=== PATIENT | female | born 2000 | race Caucasian/White ===

== ENCOUNTER → 2019-05-24 10:21 | Outpatient (BNVA) | payer MEDICAID, SELFPAY | PROVIDERS: Family Provider Nurse Practitioner; PCP Nurse Practitioner; Visit Provider Nurse Practitioner | DX: E55.9 Vitamin D deficiency, unspecified (principal); J45.909 Unspecified asthma, uncomplicated; K59.00 Constipation, unspecified; R32 Unspecified urinary incontinence; G47.00 Insomnia, unspecified | CPT/HCPCS: 82306; 85025 ==

== ENCOUNTER → 2019-09-25 15:31 | Outpatient (BNVA) | payer MEDICAID, SELFPAY | PROVIDERS: Family Provider Nurse Practitioner; PCP Nurse Practitioner; Visit Provider Specialist | DX: G80.0 Spastic quadriplegic cerebral palsy (principal); G40.309 Generalized idiopathic epilepsy and epileptic syndromes, not intractable, without status epilepticus | CPT/HCPCS: 99213 ==

== ENCOUNTER → 2019-12-27 08:00 | Outpatient (BNVA) | payer MEDICAID, SELFPAY | PROVIDERS: Family Provider Nurse Practitioner; PCP Nurse Practitioner; Visit Provider Nurse Practitioner | DX: Z79.899 Other long term (current) drug therapy (principal); G80.0 Spastic quadriplegic cerebral palsy | CPT/HCPCS: 80053; 84443; 85025 ==

== ENCOUNTER → 2020-05-24 11:57 | Outpatient (BNVA) | payer MEDICAID, SELFPAY | PROVIDERS: Family Provider Nurse Practitioner; PCP Nurse Practitioner; Visit Provider Nurse Practitioner | DX: K59.01 Slow transit constipation (principal); G40.309 Generalized idiopathic epilepsy and epileptic syndromes, not intractable, without status epilepticus | CPT/HCPCS: 80053; 84443; 85025 ==

== ENCOUNTER 2020-09-11 17:10 | Observation (INO) | payer MEDICAID, SELFPAY ==
[2020-09-11 17:13] VITALS: BMI 30.4
[2020-09-11 17:32] VITALS: BP 113/70; PULSE 104; TEMP 36.8; O2SAT 99
[2020-09-11 17:48] VITALS: BP 139/75; PULSE 129; RESP 20; O2SAT 96
--- NOTE | 2020-09-11 18:36 | PC.NURSE ---
Pt clean, placed gown, repositioned from comfort. IV in left upper arm with NS infusing
[2020-09-11] MEDS: sodium chloride 0.9% 1,000 ML 999 ML IV (18:37)
[2020-09-11 18:39] LABS: Basophils % 0.4 %; Eosinophils # 0.2 10^3/uL (0.0-0.8); Hematocrit 45.8 % (37.0-47.0); Lymphocytes # 2.6 10^3/uL (0.8-4.8); Lymphocytes % 32.5 %; Mean Corpuscular HGB Conc 32.8 g/dL (30.0-36.0); Mean Corpuscular Volume 88.6 fL (81-99); Mean Platelet Volume 9.1 fL (7.4-10.4); Monocytes # 0.7 10^3/uL (0.2-0.9); Monocytes % 9.1 %; Neutrophils # 4.45 10^3/uL (1.8-7.7); Neutrophils % 55.9 %; Nucleated Red Blood Cells % 0 %; Platelet Count 377 10^3/cmm (130-400); Red Blood Count 5.17 10^6/uL (4.1-5.3); Red Cell Distribution Width 12.2 % (12.1-15.1)
[2020-09-11 18:55] LABS: Urine Appearance Cloudy (CLEAR); Urine Color Yellow (Yellow)
[2020-09-11 18:56] LABS: Add Urine Microscopic? YES; Bilirubin Urine Neg (Negative); Blood Urine Neg (Negative); Glucose Urine UA Norm (Normal); Ketones Urine Negative (Negative); Leukocyte Esterase Urine Trace (Negative); Nitrate Urine Negative (Negative); Protein Urine Neg (Negative); Specific Gravity, Urine 1.015 (1.005-1.030); Urobilinogen Urine Norm (Negative); pH Urine 7 (5-7)
[2020-09-11 18:58] LABS: Alanine Aminotransferase 20 U/L (0-33); Albumin Level 4.4 g/dL (3.5-5.2); Alkaline Phosphatase 82 IU/L (35-105); Aspartate Amino Transferase 19 U/L (0-32); Blood Urea Nitrogen 9 mg/dL (6-20); Carbon Dioxide 22 mmol/L (22-29); Chloride 106 mmol/L (98-107); Globulin 2.8 g/dL (1.3-4.6); Glomerular Filtration Rate 280.8 mL/min (90-130); Glucose 86 mg/dL (65-115); Osmolality Calculated 288 mOsm/kg (285-295); Sodium 140 mmol/L (136-145); Total Bilirubin 0.2 mg/dL (0.15-1.2); Total Protein 7.2 g/dL (6.6-8.7)
[2020-09-11 18:59] LABS: Anion Gap 15.8 (5-19); Potassium 3.8 mmol/L (3.5-5.1)
[2020-09-11 19:10] LABS: Add Urine Culture? No; Amorphous Sediment Urine 2+ /hpf; Bacteria Urine 2+ /hpf; RBC Urine 0-4 /hpf (0-2); Squamous Epithelial Cell Urine 15-25 /hpf (0-5)
[2020-09-11 19:23] VITALS: BP 139/75; PULSE 84; RESP 20; O2SAT 97
[2020-09-11] MEDS: levofloxacin-dextrose 5 % 750 MG/150 ML PREMIX 150 MG IV (19:53)
--- NOTE | 2020-09-11 20:20 | PC.NURSE ---
abx stopped after approx 20cc due to reaction at iv site of redness and uticaria. notifkatey
--- NOTE | 2020-09-11 20:30 | PM.HP ---
Providers/Chief Complaint Primary Care Provider: Roldan Guerrero, SREEKANTHC Chief Complaint: WELL BEING CHECK History of Present Illness Estephanie Choi is a 19 year old female who has history of cerebral palsy, spastic contracture of lower extremities, dysphagia status post PEG tube placement, intellectual disability, bedbound, dependent on her mother for her care presented today along her mother. Her mother is admitted in the hospital for management of sepsis. Patient is nonverbal, most of the information has been acquired from ER and nursing report, she was brought in along her mother because there is no one else to take care of her, she was in unkept appearance, she was showered twice in the ER, cellulitis and pressure ulcer noted around PEG tube, UA reveals pyuria however not a good sample, she is not febrile no signs of sepsis or leukocytosis. She developed a rash in the ER when she was given Levaquin, her antibiotics were switched to doxycycline. Review of Systems General: Reports: ROS unobtainable due to medical condition (Intellectual disability, cerebral palsy) Medications/Allergies Home Medications Medication Instructions Recorded Confirmed Last Taken Type inhalat.spacing dev,med. mask #1 each 05/24/19 09/11/20 Unknown Rx medroxyprogesterone 150 mg/mL 150 mg IM ONCE #1 ml 08/22/19 09/11/20 Unknown Rx intramuscular suspension tizanidine 4 mg tablet 8 mg PO TID 30 Days #180 tab 09/26/19 09/11/20 Unknown Rx Tegretol 100 mg/5 mL oral 200 mg PO TID #450 ml NS 11/07/19 09/11/20 Unknown Rx suspension baclofen 10 mg tablet 20 mg PO TID #180 tab 01/17/20 09/11/20 Unknown Rx albuterol sulfate 2.5 mg INHALATION Q6H PRN #75 ml 05/24/20 09/11/20 Unknown Rx albuterol sulfate 90 mcg/actuation 2 puff INHALATION Q4H PRN #6.7 gm 05/24/20 09/11/20 Unknown Rx aerosol inhaler cetirizine 5 mg/5 mL oral solution 5 mg PO DAILY #150 ml 05/24/20 09/11/20 Unknown Rx cholecalciferol (vitamin D3) 50 2,000 unit PO DAILY #30 tab 05/24/20 09/11/20 Unknown Rx mcg (2,000 unit) tablet fluticasone propionate 110 2 puff INHALATION Q12H #12 gm 05/24/20 09/11/20 Unknown Rx mcg/actuation HFA aerosol inhaler lactulose 20 gram/30 mL oral 20 g PO BID PRN #1500 ml 05/24/20 09/11/20 Unknown Rx solution montelukast 10 mg tablet 10 mg PO DAILY #30 tab 05/24/20 09/11/20 Unknown Rx Hospital bed with full bed rails #1 ea 08/01/20 09/11/20 Unknown Rx mupirocin 2 % topical ointment 1 applic TOPICAL BID #22 g 08/15/20 09/11/20 Unknown Rx silver sulfadiazine 1 % topical 1 applic TOPICAL BID #50 g 08/15/20 09/11/20 Unknown Rx cream [id number] 4 drp OTIC (EAR) BEDTIME 09/11/20 09/11/20 Unknown History trazodone 25 - 50 mg PO BEDTIME 09/11/20 09/11/20 Unknown History Allergies Allergy/AdvReac Type Severity Reaction Status Date / Time cephalexin [From Keflex] Allergy Unknown Verified 09/11/20 17:48 ibuprofen Allergy ADR-Gastrointestinal Verified 09/11/20 17:48 Upset lactose Allergy Unknown Verified 09/11/20 17:48 levofloxacin [From Levaquin] Allergy ALGY-Rash Verified 09/11/20 20:23 Penicillins Allergy Unknown Verified 09/11/20 17:48 pineapple Allergy Unknown Verified 09/11/20 17:48 Sulfa (Sulfonamide Allergy ALGY-Rash Verified 09/11/20 17:48 Antibiotics) PFSH Acute PFSH: Medical History (Updated 09/11/20 @ 23:12 by Benny Samaniego MD) Asthma due to environmental allergies Constipation G tube feedings Insomnia Seasonal allergic rhinitis Spastic quadriplegic cerebral palsy Unspecified intellectual disabilities Urine incontinence Vitamin D deficiency Surgical History History of tonsillectomy and adenoidectomy 2001 Hx of myringotomy 2001 Family History Grandfather Diabetes Paternal grandfather Maternal grandfather Heart disease Maternal grandmother Mother Diabetes Hyperlipidemia Thyroid condition Grandmother Diabetes Paternal grandmother Maternal grandmother Hyperlipidemia Maternal grandmother Thyroid condition Maternal grandmother Paternal grandmother Other Cancer Hypertension Social History Smoking and tobacco status: never smoked Second hand smoke exposure: No Smoking risk assessment/counseling performed?: No Alcohol intake: never Desire information about alcohol rehabilitation?: No Counseling given: No Desire information about substance/drug rehabilitation?: No Counseling given: No Adopted: No Caregiver/support person: Yes Lives independently: No Household members: family Housing: House Marital status: Single Number of children: 0 service: No Current occupational status: disabled History of recent travel: No Sexually active: No Current gender identity: Female Female Reproductive History: Spontaneous abortions: No Vitals/I&O/Wt Last Vital Signs Temp 98.3 F 09/11/20 17:32 Pulse 84 09/11/20 19:23 Resp 20 H 09/11/20 19:23 BP 139/75 09/11/20 19:23 Pulse Ox 97 09/11/20 19:23 09/11/20 09/11/20 09/11/20 06:59 14:59 22:59 Intake Total 1020 / 1020 Balance 1020 / 1020 Weight last 48 hrs Weight 90.718 kg Physical Exam Narrative: EXAM NARRATIVE: Young female Nonverbal, she is moving her arms nonpurposefully Able to make eye contact and smile Unkept appearance Cystic skull around occipital area no active bleeding Extremely dry, dirt cooperative skin Hyperemia and rash noted around the IV site on left arm No lower extremity edema Spastic quadriparesis No sacral ulcers No heel ulcers Crusting noted around her nose and ears, no typical signs of impetigo Neuro exam limited Distended abdomen, PEG tube site shows pressure ulcer and severe skin maceration at the insertion site, nonpurulent cellulitis S1, S2 sinus rhythm No apparent respiratory distress no active audible stridor or wheezing Data : 09/11/20 18:26 09/11/20 18:26 A&P Assessment and plan (1) Cellulitis: Status: Acute (2) Urinary tract infection: Status: Acute (3) Acute dehydration: Status: Acute Additional A&P Information Pressure ulcer and cellulitis around PEG tube insertion site Continue doxycycline for now He is allergic to penicillin and cephalosporins Her urine sample is contaminant, she received Levaquin in the ER and developed skin rash which was held, no angioedema, blood pressure stable, she is afebrile No signs of sepsis My concern is regarding contaminated PEG tube which is showing discolored dark green to black sediments, it will put her at risk of yeast/fungal infection, kindly reevaluate in the morning When I was in the room it was running at 250 mm/h which I have decreased to 50 mL/h, her mother has brought protein shakes with her, she has enteral nutrition paperwork from [place] which shows that she will get 12 cans of 3000 kcal/day 250 ml run at 6 AM, 9 AM, 12 PM, 2 PM, 4 PM, 6 PM and 500ml run at 8 PM, 10 PM and 12 AM follow-up with 300 cc water flush Full code Continue PEG tube feeding as I do not see any leakage around PEG tube insertion site Wound care DVT prophylaxis Lovenox Case management consulted for placement Attestations Medical Necessity Statement*: Anticipating discharge in less than 48 hours will need placement, rn field case manager consulted, currently getting antibiotics for cellulitis Time Spent in Patient Care: 30mins Coding Level of Care Code Acute Shipping And Receiving for [facility] Fwd Diagnoses Cellulitis L03.90 Urinary tract infection N39.0 Acute dehydration E86.0
[2020-09-11 21:00] VITALS: BP 142/89; PULSE 86; RESP 18; O2SAT 97
[2020-09-11] MEDS: doxycycline 100 MG in sodium chloride 0.9% (plus) 100 ML IV (21:37)
--- NOTE | 2020-09-11 22:26 | PC.NURSE ---
pt pulled both IVs, is unaware of what she is doing or the consequences. Dr and fire extinguisher charger notified. Request made for safety aide. Abx unable to be completed. approx 20cc adm. 3rd IV secured with coban and IV tape. receving RN notified of sitter request
[2020-09-11 22:33] VITALS: BP 142/89; PULSE 86; RESP 18; O2SAT 97
--- NOTE | 2020-09-11 22:58 | ED_ITS ---
HPI - General Adult General: Chief complaint: General Medical Stated complaint: WELL BEING CHECK Time Seen by Provider: 09/11/20 17:44 History of Present Illness: HPI narrative: The patient is a 19-year-old female with past medical history cerebral palsy with severe mental disability. She came in an ambulance with her mother who was a patient. She is nonverbal. I was asked to see her after she sat for an extended period in the hallway. She gets G-tube feeds and has missed a feeding because she has been here. Exam is benign except tachycardia but it is difficult to tell whether this is acute as she gets excited to see you in tachycardic interacting with her. Review of Systems General: Reports: ROS unobtainable due to medical condition (Cerebral palsy) and ROS unobtainable due to mental status [facility] ED PFSH: Medical History (Updated 09/11/20 @ 23:03 by Keith Cloud MD) Asthma due to environmental allergies Constipation G tube feedings Insomnia Seasonal allergic rhinitis Spastic quadriplegic cerebral palsy Unspecified intellectual disabilities Urine incontinence Vitamin D deficiency Surgical History History of tonsillectomy and adenoidectomy 2002 Hx of myringotomy 2002 Family History Grandfather Diabetes Paternal grandfather Maternal grandfather Heart disease Maternal grandmother Mother Diabetes Hyperlipidemia Thyroid condition Grandmother Diabetes Paternal grandmother Maternal grandmother Hyperlipidemia Maternal grandmother Thyroid condition Maternal grandmother Paternal grandmother Other Cancer Hypertension Social History Smoking and tobacco status: never smoked Second hand smoke exposure: No Smoking risk assessment/counseling performed?: No Alcohol intake: never Desire information about alcohol rehabilitation?: No Counseling given: No Desire information about substance/drug rehabilitation?: No Counseling given: No Adopted: No Caregiver/support person: Yes Lives independently: No Household members: family Housing: House Marital status: Single Number of children: 0 service: No Current occupational status: disabled History of recent travel: No Sexually active: No Current gender identity: Female Female Reproductive History: Spontaneous abortions: No Physical Exam Const: COMMON NORMALS: no acute distress and healthy appearing EXAM LIMITATIONS: behavioral limitations and other limitations (Cerebral palsy) GENERAL APPEARANCE: comfortable HENMT: COMMON NORMALS: normocephalic, external ears normal and Normal external nose present HEAD & SCALP: normal to inspection and normocephalic NOSE: Normal external nose present EXTERNAL EAR: Yes external ears normal MOUTH: Normal oral and palatal mucosa present THROAT: posterior oropharynx normal Eye: COMMON NORMALS: Equal, round and reactive pupils present and EOMs intact bilaterally GENERAL EYE: appearance normal, both eyes and all related structures PUPIL: Yes Equal, round and reactive pupils present Neck/C-Spine: COMMON NORMALS: full ROM, no lymphadenopathy, no meningeal signs and no JVD GENERAL: Yes normal visual inspection Lymph: LYMPHATIC: no lymphadenopathy noted Chest: COMMONS NORMALS: normal inspection of the chest and normal palpation of entire chest wall Resp: COMMON NORMALS: normal respiratory effort, No retractions, No use of accessory muscles, clear to auscultation bilaterally and percussion normal EFFORT & INSPECTION: Yes able to speak in complete sentences AUSCULTATION: clear to auscultation bilaterally PERCUSSION: percussion normal Cardio: COMMON NORMALS: no JVD, regular rate, regular rhythm, S1 normal heart sound present, S2 normal heart sound present and Peripheral pulses 2+ throughout RATE: regular rate RHYTHM: regular rhythm HEART SOUNDS: S1 normal heart sound present and S2 normal heart sound present PERIPHERAL PULSES: Peripheral pulses 2+ throughout GI: COMMON NORMALS: Normal to inspection, nondistended, normoactive bowel sounds present, Soft to palpation, non-tender and no masses INSPECTION: Yes normal to inspection PALPATION: Yes Soft to palpation : COMMON NORMALS: Yes no CVA tenderness BLADDER/KIDNEY EXAM: Yes no CVA tenderness Back/Pelvis: COMMON NORMALS: no CVA tenderness, thoracic and lumbar spine normal to inspection, no thoracic nor lumbar tenderness and thoraco-lumbar ROM normal Extremity: NARRATIVE EXTREMITY EXAM: Chronic contractions from her cerebral palsy. Moves all 4 extremities spontaneously. Neuro: MENINGEAL SIGNS: Yes no meningeal signs OTHER: Appears to be at her baseline level of functioning with her chronic cerebral palsy. Skin: COMMON NORMALS: no rashes or lesions noted GENERAL SKIN EXAM: no rashes or lesions noted Course Vital Signs: Vital signs: Vital Signs Temperature 98.3 F 09/11/20 17:32 Pulse Rate 86 09/11/20 22:33 Respiratory Rate 18 05/05/21 22:33 Blood Pressure 142/89 05/05/21 22:33 Pulse Oximetry 97 09/11/20 22:33 MDM - General Adult MDM Narrative: Medical decision making narrative: The patient came in for a well check and was tachycardic. Her urine did have 5-10 white cells in it and likely a urinary tract infection. She was given IV fluids for possible dehydration as well and admitted to Dr. Samaniego. Lab Data: Labs: Lab Results 09/11/20 09/11/20 09/11/20 Range/Units 18:26 18:26 18:26 WBC 8.0 (4.0-10.0) 10^3/ uL RBC 5.17 (4.1-5.3) 10^6/u L Hgb 15.0 (11.5-15.3) g/dL Hct 45.8 (37.0-47.0) % MCV 88.6 (81-99) fL MCH 29.0 (28.0-34.0) pg MCHC 32.8 (30.0-36.0) g/dL RDW 12.2 (12.1-15.1) % Plt Count 377 (130-400) 10^3/c mm MPV 9.1 (7.4-10.4) fL Neut % (Auto) 55.9 % Lymph % (Auto) 32.5 % Preston % (Auto) 9.1 % Eos % (Auto) 2.0 % Baso % (Auto) 0.4 % Neut # (Auto) 4.45 (1.8-7.7) 10^3/u L Lymph # (Auto) 2.6 (0.8-4.8) 10^3/u L Preston # (Auto) 0.7 (0.2-0.9) 10^3/u L Eos # (Auto) 0.2 (0.0-0.8) 10^3/u L Baso # (Auto) 0.0 (0.0-0.1) 10^3/u L Nucleated RBC % (a uto) 0 % Nucleated RBCs # 0.0 /100WBC Sodium 140 (136-145) mmol/L Potassium 3.8 (3.5-5.1) mmol/L Chloride 106 (98-107) mmol/L Carbon Dioxide 22 (22-29) mmol/L Anion Gap 15.8 (5-19) BUN 9 (6-20) mg/dL Creatinine 0.3 L (0.5-0.9) mg/dL GFR Calculation 280.8 H (90-130) mL/min Glucose 86 (65-115) mg/dL Calculated Osmolal ity 288 (285-295) mOsm/k g Calcium 9.0 (8.5-10.5) mg/dL Total Bilirubin 0.2 (0.15-1.2) mg/dL AST 19 (0-32) U/L ALT 20 (0-33) U/L Alkaline Phosphata se 82 (35-105) IU/L Total Protein 7.2 (6.6-8.7) g/dL Albumin 4.4 (3.5-5.2) g/dL Globulin 2.8 (1.3-4.6) g/dL Urine Color Yellow (Yellow) Urine Appearance Cloudy (CLEAR) Urine pH 7 (5-7) Ur Specific Gravit y 1.015 (1.005-1.030) Urine Protein Neg (Negative) Urine Glucose (UA) Norm (Normal) Urine Ketones Negative (Negative) Urine Blood Neg (Negative) Urine Nitrate Negative (Negative) Urine Bilirubin Neg (Negative) Urine Urobilinogen Norm (Negative) mg/dL Ur Leukocyte Brittnee ase Trace H (Negative) Urine RBC 0-4 H (0-2) /hpf Urine WBC 5-10 H (0-5) /hpf Ur Squamous Epith Cells 15-25 H (0-5) /hpf Amorphous Sediment 2+ /hpf Urine Bacteria 2+ H (NONE) /hpf Discharge Plan Discharge Patient Disposition: Admitted As Inpatient Admit Provider: Benny Samaniego Clinical Impression: Urinary tract infection, Acute dehydration Condition: Stable Coding Level of Care Code ED Supervisor Laboratory for Tobias Ayon
[2020-09-11] MEDS: enoxaparin 40 mg/0.4 mL Syringe SUBCUT (23:31)
[2020-09-12] VITALS (9 sets, daily range): BP systolic 93–119; BP diastolic 58–77; PULSE 64–135; RESP 18–20; TEMP 36.6–37.3; O2SAT 92–100
[2020-09-12] MEDS: silver sulfadiazine cream 1% 50 gm 1 APPLIC TOPICAL ×2 (08:59→17:24)
[2020-09-12] MEDS: tizanidine 4 mg Tablet 8 MG PO ×3 (09:00→21:18)
[2020-09-12] MEDS: baclofen 10 mg Tablet 20 MG PEG-TUBE ×3 (09:00→21:20)
[2020-09-12] MEDS: doxycycline 100 mg Tablet PEG-TUBE ×2 (09:00→17:24)
--- NOTE | 2020-09-12 09:11 | PC.NUTR ---
Tube feeding assessment. Pt currently receiving what appears to be Peptamen as there are multiple containers from home in pt's room, running at 50 ml/hr. This is providing 1200 kcal, 48 g protein, and 1018 ml H2O. Have spoken with Dr. Downing as well as case management and attempting to clarify home tube feeding regimen at this time. Lactose allergy noted, however Peptamen contains lactose. Anticipate recommending TF change to lactose-free formula as well as increase of rate and H2O flushes to better meet estimated needs, however further information needed at this time. See full nutrition assessment for further details.
--- NOTE | 2020-09-12 09:39 | PC.NURSE ---
Night Nurses gave bed bath last night on 09/11/20
--- NOTE | 2020-09-12 12:19 | PC.CHAP ---
Pastoral Care Encounter/Spiritual Assessment Type of Contact [] Declined mitochondrial disorders counselor visit [] Patient/Family/Request visit [] Outpatient visit [] Follow-up visit [] Physician referral [] Code/Alert [] Routine visit [] Staff referral [] Actively dying [] Patient sleeping [] Family support [] [] Out of room [] Palliative care [] [] Receiving care in room [] Pre-surgical visit [x] Trauma [x] Long length of stay [] ICU visit [x] Other: on meds Relational/Emotional Strength [] Patient feels connected with others/family/visitors/staff [] Distress [] Loneliness/isolation [] Abandonment Spirituality of Patient [] Person of Valerie [] Attends [facility] of their Valerie [] Believes in Prayer [] Reads Bible or Denominational materials [] There are Spiritual issues to be addressed Canvass Manager Interventions [] Prayer [] Active listening [] Non-anxious presence [] Spiritual/emotional support [] Crisis/trauma care [] Spiritual counseling [] Bereavement support [] Provided bereavement packet [] Provided Bible/devotional materials [] Provided toy/stuffed animal, coloring book to patient or family member [] Provided Communion [] Anointing/Tracy [] Salvation [] Completed spiritual assessment [] Other: Impact on Illness or Injury [] Angry [] Fearful [] Anxious [] Often cries [] Exhaustion [] Unable to work [] Unable to attend pentecostalism [] Unable to walk/stand [] Unable to read [] Unable to drive [] Unable to eat/drink [] Unable to sleep [] Unable to be with family [] Patient intubated [] Other: Summary on meds Time spent with patient 5 mins
--- NOTE | 2020-09-12 12:43 | DCPLANNER ---
manager commercial real estate worked with patient on 09.11.2020 when patient was in the ER. manager commercial real estate was asked to help find placement for patient due to patient not being able to take care of herself, and patients mother needing to be seen in the ER. manager commercial real estate spoke with Jolie with senior services with the critical [facility]. manager commercial real estate was told by Jolie that patients primary care physician, Simba Guerrero's office, spoke with Melissa at [facility] about patient and was told that they would accept patient. manager commercial real estate called Melissa at [facility], was told that they did not accept patient and at this time did not even have a referral to review on patient. Melissa did state that she told Cesar' s office, that a Level II would have to be completed on patient, and that she would fax the paperwork to the office, for the physician to fill out and return to Melissa and that she would submit it to [facility] for review. manager commercial real estate spoke with Simba, patients primary care physician, she stated that her office had sent the referral to [facility] for review. She also stated that she would fill out the level II paperwork and fax it to Melissa and this embedded case manager. manager commercial real estate did get the paperwork filled out by Simba. manager commercial real estate also spoke with Kasia at [facility], about possible placement at [facility], was asked to fax what paperwork embedded case manager had from Simba to [facility]. manager commercial real estate faxed paperwork to [facility]. manager commercial real estate was told that no placement would take place today for patient. manager commercial real estate will call and check with [facility] on September 12. manager commercial real estate spoke with patients mother and asked if she knew of anyone else that would be able to care for the patient, any other family member, friend, neighbor anyone. The mother did give embedded case manager the phone number Costa, patients brother and the phone number to Yuli, patients sister in law. When embedded case manager spoke with them the brother stated that he would not be able to take patient and care for her due to not having any room in his house. Costa gave embedded case manager the phone number to patients sister, Ronel, spoke with her she stated that she was a truck farmer and she was not even in the state of [place] and would not be able to care of patient. manager commercial real estate then spoke with Erona, the patients aunt who stated that she was disabled herself and she would not be able to care of patient. Patients mother then gave embedded case manager the phone number to a man named Jose, that calls himself patients father. manager commercial real estate called him, he stated that he lives in [place], and that he would care for patient, but was unable to get patient, hospital would have to transport patient to him. manager commercial real estate has relayed all of this information to direct frame sample and pattern supervisor Jolie Collins, who has also been working on this case. 09.12.20 embedded case manager faxed patients information to [facility] for review. Spoke with Cynthia, was told that they would not be able to accept patient at this time. manager commercial real estate spoke with Demi at [facility] and was told that they would not be able to accept patient at this time. manager commercial real estate did fax patients paperwork to [facility] [place] for review. manager commercial real estate has spoken with Zechariah at [facility] and he stated that it is being reviewed at this time. manager commercial real estate also spoke with Harleen Elgin and they are reviewing patients paperwork at this time as well.
--- NOTE | 2020-09-12 13:37 | PM.PN ---
Subjective Subjective: Interval history: Neurologic alert. Ambulatory. Examination patient lying comfortably in bed. Awakens to physical touch. Looks comfortable. Has remained hemodynamically stable and afebrile since last night. Vitals/I&O/Wt Last Vital Signs Temp 98.7 F 09/12/20 11:49 Pulse 114 H 09/12/20 11:49 Resp 18 09/12/20 11:49 BP 113/61 09/12/20 11:49 Pulse Ox 96 09/12/20 11:49 09/11/20 09/12/20 09/12/20 22:59 06:59 14:59 Intake Total 1020 / 1020 100 / 1120 479 / 479 Balance 1020 / 1020 100 / 1120 479 / 479 Weight last 48 hrs Weight 90.718 kg Physical Exam Narrative: EXAM NARRATIVE: Young female Nonverbal, she is moving her arms nonpurposefully Able to make eye contact and smile Cystic skull around occipital area no active bleeding Hyperemia and rash noted around the IV site on left arm No lower extremity edema Spastic quadriparesis No sacral ulcers No heel ulcers Crusting noted around her nose and ears, no typical signs of impetigo Neuro exam limited Distended abdomen, PEG tube site shows mild skin maceration at the insertion site, S1, S2 sinus rhythm No apparent respiratory distress no active audible stridor or wheezing Data : 09/11/20 18:26 09/11/20 18:26 A&P Assessment and plan (1) Cellulitis: Status: Acute (2) Acute dehydration: Status: Acute (3) G tube feedings: Status: Chronic (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 Continue to address around the PEG tube site insertion with Silvadene. Continue doxycycline for now to finish a 5-day course. PEG tube insertion: Continue with tube feeds at 50 cc/h. And consult dietitian for further recommendation. Her mother has brought protein shakes with her, she has enteral nutrition paperwork from [place] which shows that she will get 12 cans of 3000 kcal/day 250 ml run at 6 AM, 9 AM, 12 PM, 2 PM, 4 PM, 6 PM and 500ml run at 8 PM, 10 PM and 12 AM follow-up with 300 cc water flush Social discord: Mother is removed to the hospital for cellulitis. She is the only patient's caregiver. He started has been consulted for safe discharge planning and placement for patient. Continue other chronic medications including carbamazepine, tizanidine, trazodone, baclofen. Check folate level, admission level, phosphorus level, procalcitonin, TIBC, vitamin B12 level, vitamin D level, ferritin level, TSH. Full code Continue PEG tube feeding as I do not see any leakage around PEG tube insertion site Wound care DVT prophylaxis Lovenox Case management consulted for placement Attestations Medical Necessity Statement*: Patient requires further hospitalization possible discharge planning in view of social discord as mother who is the primary caregiver of the patient is admitted to the hospital and patient has spastic quadriplegic cerebral palsy. Time Spent in Patient Care: Greater than 35 minutes (>than 50% of time spent in counselling and/or direct pt care on unit). 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
[2020-09-12] MEDS: famotidine 20 mg/2 mL INJ IVP (15:42)
[2020-09-12 17:32] LABS: Procalcitonin 0.05 ng/mL (0-0.5); Vitamin B12 858 pg/mL (232-1245)
[2020-09-12 17:35] LABS: Folate Level 18.3 ng/mL (4.8-37.3)
[2020-09-12 17:43] LABS: Ferritin 45 ng/mL (15-150); Iron 54 ug/dL (37-145); Percent Saturation 17.8 % (20-50); Total Iron Binding Capacity 303 mcg/dl; Unsaturated Iron Binding 249 ug/dL (112-347)
[2020-09-12 17:48] LABS: SARS Covid-2 Antigen Negative (Negative)
[2020-09-12 18:17] LABS: 25 Hydroxy Vitamin D 25 ng/mL (30-100); Magnesium 1.9 mg/dL (1.7-2.3); Phosphorus 2.7 mg/dL (2.5-4.5); Thyroid Stimulating Hormone 2.34 uIU/mL (0.27-4.20)
[2020-09-12] MEDS: trazodone 50 mg Tablet 25 MG PO (21:19)
[2020-09-12] MEDS: metoprolol tartrate 25 mg Tablet 12.5 MG PO (21:19)
[2020-09-12] MEDS: enoxaparin 40 mg/0.4 mL Syringe SUBCUT (23:27)
[2020-09-13] VITALS (8 sets, daily range): BP systolic 91–106; BP diastolic 55–72; PULSE 69–101; RESP 17–19; TEMP 36.4–37.5; O2SAT 91–98
[2020-09-13] MEDS: famotidine 20 mg/2 mL INJ IVP ×2 (02:17→15:08)
[2020-09-13 06:36] LABS: Basophils % 0.2 %; Eosinophils # 0.2 10^3/uL (0.0-0.8); Eosinophils % 3.5 %; Hematocrit 39.2 % (37.0-47.0); Hemoglobin 12.7 g/dL (11.5-15.3); Lymphocytes # 2.1 10^3/uL (0.8-4.8); Lymphocytes % 48.2 %; Mean Corpuscular HGB Conc 32.4 g/dL (30.0-36.0); Mean Corpuscular Hemoglobin 29.2 pg (28.0-34.0); Mean Corpuscular Volume 90.1 fL (81-99); Mean Platelet Volume 8.9 fL (7.4-10.4); Monocytes # 0.5 10^3/uL (0.2-0.9); Monocytes % 12.4 %; Neutrophils # 1.55 10^3/uL (1.8-7.7); Neutrophils % 35.7 %; Nucleated Red Blood Cells % 0 %; Platelet Count 294 10^3/cmm (130-400); Red Blood Count 4.35 10^6/uL (4.1-5.3); Red Cell Distribution Width 12.5 % (12.1-15.1); White Blood Count 4.3 10^3/uL (4.0-10.0)
[2020-09-13 06:59] LABS: Alanine Aminotransferase 13 U/L (0-33); Alkaline Phosphatase 72 IU/L (35-105); Anion Gap 11.5 (5-19); Aspartate Amino Transferase 13 U/L (0-32); Blood Urea Nitrogen 11 mg/dL (6-20); Calcium 8.7 mg/dL (8.5-10.5); Carbon Dioxide 23 mmol/L (22-29); Chloride 111 mmol/L (98-107); Globulin 2.5 g/dL (1.3-4.6); Glomerular Filtration Rate 448.4 mL/min (90-130); Glucose 103 mg/dL (65-115); Osmolality Calculated 294 mOsm/kg (285-295); Potassium 3.5 mmol/L (3.5-5.1); Sodium 142 mmol/L (136-145); Total Bilirubin 0.2 mg/dL (0.15-1.2); Total Protein 6.5 g/dL (6.6-8.7)
[2020-09-13] MEDS: baclofen 10 mg Tablet 20 MG PEG-TUBE ×3 (08:30→20:39)
[2020-09-13] MEDS: doxycycline 100 mg Tablet PEG-TUBE ×2 (08:30→18:38)
[2020-09-13] MEDS: tizanidine 4 mg Tablet 8 MG PO ×3 (08:30→20:39)
[2020-09-13] MEDS: metoprolol tartrate 25 mg Tablet 12.5 MG PO ×2 (08:30→20:39)
[2020-09-13] MEDS: montelukast sodium 10 mg Tablet PO (08:30)
--- NOTE | 2020-09-13 09:31 | PM.DCS ---
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 Her mother is admitted in the hospital for management of sepsis. Patient is nonverbal, most of the information has been acquired from ER and nursing report, she was brought in along her mother because there is no one else to take care of her, she was in unkept appearance, she was showered twice in the ER, cellulitis and pressure ulcer noted around PEG tube, UA reveals pyuria however not a good sample, she is not febrile no signs of sepsis or leukocytosis. She developed a rash in the ER when she was given Levaquin, her antibiotics were switched to doxycycline. She did well during hospitalization. PEG tube feeds are continued. As per her mother she is supposed to be on Peptamen protein shake enteral nutrition which is started to her from hospital in [place]. Her mother has brought protein shakes with her, she has enteral nutrition paperwork from [place] which shows that she will get 12 cans of 3000 kcal/day 250 ml run at 6 AM, 9 AM, 12 PM, 2 PM, 4 PM, 6 PM and 500ml run at 8 PM, 10 PM and 12 AM follow-up with 300 cc water flush. Dietitian consult was done. Nutrition and feeding was changed as per the recommendations. Given the social discord as the mother is hospitalized and she is the only caregiver for the patient plan for possible discharge to SNF was sought for safe discharge planning. She is not discharged hemodynamically stable condition. Patient is to take doxycycline for 5 more days Physical Exam Narrative: EXAM NARRATIVE: Young female Nonverbal, she is moving her arms nonpurposefully Able to make eye contact and smile Cystic skull around occipital area no active bleeding Hyperemia and rash noted around the IV site on left arm No lower extremity edema Spastic quadriparesis No sacral ulcers No heel ulcers Crusting noted around her nose and ears, no typical signs of impetigo Neuro exam limited Distended abdomen, PEG tube site shows mild skin maceration at the insertion site, S1, S2 sinus rhythm No apparent respiratory distress no active audible stridor or wheezing Discharge Data Data Completed and Pending: Pending at discharge Category Date Time Status Vitamin D 1,25 Di hydroxy Routine Lab 09/12/20 13:34 Received Labs from last 24 hours 09/13/20 09/13/20 09/12/20 06:20 06:20 17:00 WBC 4.3 RBC 4.35 Hgb 12.7 Hct 39.2 MCV 90.1 MCH 29.2 MCHC 32.4 RDW 12.5 Plt Count 294 MPV 8.9 Neut % (Auto) 35.7 Lymph % (Auto) 48.2 [place] % (Auto) 12.4 Eos % (Auto) 3.5 Baso % (Auto) 0.2 Neut # (Auto) 1.55 L Lymph # (Auto) 2.1 [place] # (Auto) 0.5 Eos # (Auto) 0.2 Baso # (Auto) 0.0 Nucleated RBC % (a uto) 0 Nucleated RBCs # 0.0 Sodium 142 Potassium 3.5 Chloride 111 H Carbon Dioxide 23 Anion Gap 11.5 BUN 11 Creatinine 0.2 L GFR Calculation 448.4 H Glucose 103 Calculated Osmolal ity 294 Calcium 8.7 Phosphorus Magnesium Iron TIBC % Saturation Unsat Iron Binding Ferritin Total Bilirubin 0.2 AST 13 ALT 13 Alkaline Phosphata se 72 Total Protein 6.5 L Albumin 4.0 Globulin 2.5 Vitamin B12 25-OH Vitamin D To zenia 1,25 Dihydroxy Vit D2 1,25 Dihydroxy Vit D3 Folate Procalcitonin TSH SARS-CoV-2 Ag (Rap id) Negative 09/12/20 09/12/20 09/12/20 16:30 16:30 16:30 WBC RBC Hgb Hct MCV MCH MCHC RDW Plt Count MPV Neut % (Auto) Lymph % (Auto) [place] % (Auto) Eos % (Auto) Baso % (Auto) Neut # (Auto) Lymph # (Auto) [place] # (Auto) Eos # (Auto) Baso # (Auto) Nucleated RBC % (a uto) Nucleated RBCs # Sodium Potassium Chloride Carbon Dioxide Anion Gap BUN Creatinine GFR Calculation Glucose Calculated Osmolal ity Calcium Phosphorus 2.7 Magnesium 1.9 Iron 54 TIBC 303 % Saturation 17.8 L Unsat Iron Binding 249 Ferritin 45 Total Bilirubin AST ALT Alkaline Phosphata se Total Protein Albumin Globulin Vitamin B12 858 25-OH Vitamin D To zenia 25 L 1,25 Dihydroxy Vit D2 1,25 Dihydroxy Vit D3 Folate 18.3 Procalcitonin 0.05 TSH 2.34 SARS-CoV-2 Ag (Rap id) 09/11/20 18:26 WBC RBC Hgb Hct MCV MCH MCHC RDW Plt Count MPV Neut % (Auto) Lymph % (Auto) [place] % (Auto) Eos % (Auto) Baso % (Auto) Neut # (Auto) Lymph # (Auto) [place] # (Auto) Eos # (Auto) Baso # (Auto) Nucleated RBC % (a uto) Nucleated RBCs # Sodium Potassium Chloride Carbon Dioxide Anion Gap BUN Creatinine GFR Calculation Glucose Calculated Osmolal ity Calcium Phosphorus Magnesium Iron TIBC % Saturation Unsat Iron Binding Ferritin Total Bilirubin AST ALT Alkaline Phosphata se Total Protein Albumin Globulin Vitamin B12 25-OH Vitamin D To zenia Pending 1,25 Dihydroxy Vit D2 Pending 1,25 Dihydroxy Vit D3 Pending Folate Procalcitonin TSH SARS-CoV-2 Ag (Rap id) Vitals: Last Vital Signs Temp 99.0 F 09/13/20 08:00 Pulse 86 09/13/20 08:00 Resp 17 09/13/20 08:00 BP 91/55 09/13/20 08:00 Pulse Ox 93 09/13/20 08:00 Discharge Plan Discharge Patient Disposition: Xfer [facility] Condition: Stable Prescriptions: New doxycycline monohydrate 100 mg Tablet 100 mg peg-tube BID Qty: 60 RF: 0 metoprolol tartrate 25 mg Tablet 12.5 mg PO BID@0900,2100 Qty: 60 RF: 0 Continued medroxyprogesterone [Depo-Provera] 150 mg/mL suspension 150 mg IM ONCE Qty: 1 RF: 3 (DME) [employer] Shellie-Med Msk Spacer See Rx Instructions .ROUTE .MEDSUPPLY Qty: 1 RF: 0 tizanidine 4 mg tablet 8 mg PO TID 30 Days Qty: 180 RF: 11 albuterol sulfate [Ventolin HFA] 90 mcg/actuation HFA aerosol inhaler 2 puff INHALATION Q4H PRN (Reason: shortness of breath or wheezing) Qty: 6.7 RF: 5 albuterol sulfate 2.5 mg /3 mL (0.083 %) solution for nebulization 2.5 mg INHALATION Q6H PRN (Reason: shortness of breath or wheezing) Qty: 75 RF: 5 cetirizine 5 mg/5 mL solution 5 mg PO DAILY Qty: 150 RF: 5 cholecalciferol (vitamin D3) 50 mcg (2,000 unit) tablet 2,000 unit PO DAILY Qty: 30 RF: 5 Flovent HFA 110 mcg/actuation HFA aerosol inhaler 2 puff INHALATION Q12H Qty: 12 RF: 5 lactulose 20 gram/30 mL solution 20 g PO BID PRN (Reason: constipation) Qty: 1500 RF: 5 montelukast [Singulair] 10 mg tablet 10 mg PO DAILY Qty: 30 RF: 5 silver sulfadiazine [Silvadene] 1 % cream 1 applic topical BID Qty: 50 RF: 0 mupirocin 2 % ointment 1 applic topical BID Qty: 22 RF: 1 (DME) Hospital bed with full bed rails See Rx Instructions .Route .MEDSUPPLY Qty: 1 RF: 0 carbamazepine [Tegretol] 100 mg/5 mL suspension 200 mg PO TID Qty: 450 RF: 11 baclofen 10 mg tablet 20 mg PO TID Qty: 180 RF: 8 trazodone 50 mg tablet 25 - 50 mg PO BEDTIME RF: 0 mukyuaql-qmipjjala-QW 3.5-10,000-1 mg/mL-unit/mL-% drops,suspension 4 drp otic (ear) BEDTIME RF: 0 Discharge Orders: Discharge Order (Routine); Ordered 09/13/20 Ordered By: Tavo Torres Patient Instructions: Metoprolol (By mouth), Doxycycline (By mouth), Dehydration (DC), Cellulitis (DC), Opioid Safety Discharge Attestations Time Spent in Discharge Care*: greater than 30 min Specific Discharge Activities: educating and/or supporting family/caregiver, discussing with employment evaluator/case manager/social workers/dc planners, documenting/other paperwork and evaluating patient/reviewing data Status at Discharge: Cognitive status at discharge: severely impaired cognition, Behavioral status at discharge: cooperative, Functional status at discharge: other assisted ambulation Overall status at discharge: patient is back to baseline Quality Metrics Clinical Quality Measures During this hospital stay, did patient experience: None Coding Level of Care Code Acute Chg FW DC note Diagnoses Cellulitis L03.90 Acute dehydration E86.0 G tube feedings Z93.1 Spastic quadriplegic cerebral palsy G80.0
--- NOTE | 2020-09-13 12:01 | PC.NUTR ---
Nutrition follow-up. Attemped to contact Roldan Guerrero APRN regarding the tube feeding prescription received from [facility]. Unsure of rationale for 3000 kcal provision, which is significantly higher than what this RD estimates using available calculations. Unable to connect with [facility] at this time. Pt continues receiving Peptamen at 50 ml/hr, providing 1200 kcal, 48 g protein, 1018 ml H2O. Due to limited information, cautiously recommend to change current feeding to match [facility] orders, however recommend to monitor labs, weight, and tolerance, and consider decrease if appropriate. Did contact nurse at [facility] re[facility], who states they will be able to follow the schedule as ordered, and will attempt to obtain Peptamen if possible as they do not currently have it. Please see [facility] faxed orders for specific feeding times and details. Total daily feedings would provide 3000 kcal, 120 g protein, and 2544 ml H2O, with additional H2O from flushes. See RD assessments for further details.
[2020-09-13] MEDS: silver sulfadiazine cream 1% 50 gm 1 APPLIC TOPICAL (18:41)
[2020-09-13] MEDS: trazodone 50 mg Tablet 25 MG PO (20:40)
[2020-09-13] MEDS: enoxaparin 40 mg/0.4 mL Syringe SUBCUT (23:30)
[2020-09-14] VITALS: BP 113/60; PULSE 68; RESP 18; TEMP 37.4; O2SAT 97
[2020-09-14] MEDS: famotidine 20 mg/2 mL INJ IVP (00:47)
[2020-09-14 04:00] VITALS: BP 99/65; PULSE 58; RESP 18; TEMP 36.7; O2SAT 100
[2020-09-14 07:37] VITALS: BP 99/65; PULSE 62; RESP 16; TEMP 37.2; O2SAT 98
[2020-09-14] MEDS: doxycycline 100 mg Tablet PEG-TUBE (10:12)
[2020-09-14] MEDS: silver sulfadiazine cream 1% 50 gm 1 APPLIC TOPICAL (10:13)
[2020-09-14] MEDS: tizanidine 4 mg Tablet 8 MG PO (10:13)
[2020-09-14] MEDS: metoprolol tartrate 25 mg Tablet 12.5 MG PO (10:13)
[2020-09-14] MEDS: montelukast sodium 10 mg Tablet PO (10:13)
[2020-09-14] MEDS: baclofen 10 mg Tablet 20 MG PEG-TUBE (10:13)
[2020-09-14 11:52] VITALS: BP 99/61; PULSE 62; RESP 18; TEMP 36.5; O2SAT 93
--- NOTE | 2020-09-14 12:18 | PM.PN ---
Subjective Subjective: Interval history: Patient did not leave yesterday because of transportation issues. No acute events overnight. Has remained stable, comfortable. Tolerating feeds well. Vitals/I&O/Wt Last Vital Signs Temp 97.7 F 09/14/20 11:52 Pulse 62 09/14/20 11:52 Resp 18 09/14/20 11:52 BP 99/61 09/14/20 11:52 Pulse Ox 93 09/14/20 11:52 09/13/20 09/14/20 09/14/20 22:59 06:59 14:59 Intake Total 500 / 810 Balance 500 / 810 Physical Exam Narrative: EXAM NARRATIVE: Young female Nonverbal, she is moving her arms nonpurposefully Able to make eye contact and smile Cystic skull around occipital area no active bleeding Hyperemia and rash noted around the IV site on left arm No lower extremity edema Spastic quadriparesis No sacral ulcers No heel ulcers Crusting noted around her nose and ears, no typical signs of impetigo Neuro exam limited Distended abdomen, PEG tube site shows mild skin maceration at the insertion site, S1, S2 sinus rhythm No apparent respiratory distress no active audible stridor or wheezing Data : 09/13/20 06:20 09/13/20 06:20 A&P Assessment and plan (1) Cellulitis: Status: Acute (2) Acute dehydration: Status: Acute (3) G tube feedings: Status: Chronic (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 Continue to address around the PEG tube site insertion with Silvadene. Continue doxycycline for now to finish a 5-day course. PEG tube insertion: Discussed with dietitian. For her calorie count for 2000 to 2600 kcal is okay a day. For now we will continue her home schedule. Her mother has brought protein shakes with her, she has enteral nutrition paperwork from [place] which shows that she will get 12 cans of 3000 kcal/day 250 ml run at 6 AM, 9 AM, 12 PM, 2 PM, 4 PM, 6 PM and 500ml run at 8 PM, 10 PM and 12 AM follow-up with 300 cc water flush Social discord: Mother is removed to the hospital for cellulitis. She is the only patient's caregiver. He started has been consulted for safe discharge planning and placement for patient. Continue other chronic medications including carbamazepine, tizanidine, trazodone, baclofen. Check folate level, admission level, phosphorus level, procalcitonin, TIBC, vitamin B12 level, vitamin D level, ferritin level, TSH. Full code Continue PEG tube feeding as I do not see any leakage around PEG tube insertion site Wound care DVT prophylaxis Lovenox Case management consulted for placement Attestations Medical Necessity Statement*: Patient required hospitalization as safe transport to SNF could not be arranged yesterday. Time Spent in Patient Care: Greater than 35 minutes (>than 50% of time spent in counselling and/or direct pt care on unit). 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
[2020-09-14 13:30] VITALS: BP 99/61; PULSE 62; RESP 18; TEMP 36.5; O2SAT 93
--- NOTE | 2020-09-18 14:45 | PC.SOCIAL ---
This nurse has corresponded with mother and Tika with [facility] from regional office out of [place] on 09/17/2020 before Mother was transferred to SNF. We have completed the applications and the initial phone interview. We explained in detail to Mother once services is started if she feels they are not needed at a particular time to just place them on hold but do not cancel them. We explained that there are more opportunities for her Daughter once enrolled in this program and she can get assistance in the home for extended periods of time if needed. Tika verified all was received. While patient and mother are at facility in [place] the case will be out of the [place] office and once they return home will be transferred back to Tika's office at [place].
[2020-09-23 02:12] LABS: Vit D 1,25 (Oh)2, Total 60 pg/mL (18-72); Vit D2 1,25 (Oh)2 <8 pg/mL; Vit D3 1,25 (Oh)2 60 pg/mL
== END 2020-09-14 12:00 | disposition skilled nursing facility (03) ==
LOC: ER 17:44 → MEDSURG 23:03
PROVIDERS: Admitting Provider Internal Medicine; Emergency Provider Family Medicine; PCP Nurse Practitioner; Visit Provider Student in an Organized Health Care Education/Training Program
DX: L03.90 Cellulitis, unspecified (principal); N39.0 Urinary tract infection, site not specified; E86.0 Dehydration; Z93.1 Gastrostomy status; G80.0 Spastic quadriplegic cerebral palsy
CPT/HCPCS: 36415; 80053; 81001; 82306; 82607; 82652; 82728; 82746; 83540; 83550; 83735; 84100; 84145; 84443; 85025; 87426; 94664; 96365; 96367; 96372; 96375; 99285; G0378; J1650; J1956; J3490; J7030

== ENCOUNTER → 2020-11-25 11:01 | Outpatient (BNVA) | payer MEDICAID, SELFPAY | PROVIDERS: PCP Nurse Practitioner; Visit Provider Specialist | DX: G40.209 Localization-related (focal) (partial) symptomatic epilepsy and epileptic syndromes with complex partial seizures, not intractable, without status epilepticus (principal); G40.309 Generalized idiopathic epilepsy and epileptic syndromes, not intractable, without status epilepticus; G80.0 Spastic quadriplegic cerebral palsy; F84.0 Autistic disorder | CPT/HCPCS: 99214 ==

== ENCOUNTER → 2020-11-26 11:46 | Outpatient (BNVA) | payer MEDICAID, SELFPAY | PROVIDERS: PCP Nurse Practitioner; Visit Provider Nurse Practitioner | DX: J45.909 Unspecified asthma, uncomplicated (principal); E55.9 Vitamin D deficiency, unspecified; K59.00 Constipation, unspecified; G47.00 Insomnia, unspecified; B35.1 Tinea unguium; G40.309 Generalized idiopathic epilepsy and epileptic syndromes, not intractable, without status epilepticus; G47.09 Other insomnia | CPT/HCPCS: 80053; 80156; 82306; 85007; 85027 ==

== ENCOUNTER 2020-12-28 22:32 | Emergency (ER) | payer MEDICAID, SELFPAY ==
[2020-12-28 22:35] VITALS: BP 116/96; PULSE 108; RESP 20; TEMP 36.8; O2SAT 98; BMI 32.0
[2020-12-28 22:48] VITALS: TEMP 37.9
--- NOTE | 2020-12-28 22:48 | XRR_ITS ---
PROCEDURE INFORMATION: Exam: XR Chest Exam date and time: 12/28/2020 10:48 PM Age: 20 years old Clinical indication: Dyspnea; Additional info: Rule out pna TECHNIQUE: Imaging protocol: XR of the chest. Views: 1 view. COMPARISON: No relevant prior studies available. FINDINGS: Lungs: No CHF/pulmonary edema. Poor inspiration somewhat limits evaluation, especially of the lung bases. Visible lungs appear essentially clear. Pleural spaces: No visible pneumothorax. No definite pleural fluid. Heart/Mediastinum: Heart size is within normal limits. Bones/joints: No significant acute finding. XR/XR chest 1V portable [id number] IMPRESSION: 1. No definite pneumonia or CHF. 2. Other findings discussed above.
--- NOTE | 2020-12-28 22:48 | ECG_ITS ---
[facility] Test Date: 2020-12-28 Pat Name: Estephanie Choi Department: Room: Gender: Female Testboard Operator: : 2000 Requested By: Risa Ross Order Number: [id number] Gordon MD: Kaylen Menon M.D. Measurements Intervals Hatch Rate: 100 P: 50 WI: 163 QRS: -20 QRSD: 85 T: 40 QT: 311 QTc: 402 Interpretive Statements SINUS TACHYCARDIA POSSIBLE ANTERIOR MYOCARDIAL INFARCTION , OF INDETERMINATE AGE [30 ms Q WAVE IN V3/V4, OR R < 0.2 mV IN V4] No previous ECG available for comparison Electronically Signed On 12-30-2020 13:12:57 CDT by Kaylen Menon M.D. [id number]
--- NOTE | 2020-12-28 22:49 | CTR_ITS ---
PROCEDURE INFORMATION: Exam: CT Head Without Contrast Exam date and time: 12/28/2020 10:49 PM Age: 20 years old Clinical indication: Injury or trauma; Fall; Blunt trauma (contusions or hematomas); Without loss of consciousness; Patient HX: Spastic quad cp fell off couch 2 days ago TECHNIQUE: Imaging protocol: Computed tomography of the head without contrast. Radiation optimization: All CT scans at this facility use at least one of these dose optimization techniques: automated exposure control; mA and/or kV adjustment per patient size (includes targeted exams where dose is matched to clinical indication); or iterative reconstruction. COMPARISON: No relevant prior studies available. RADIATION DOSE METRICS: Total DLP (mGy-cm): 683.7 FINDINGS: Brain: No acute intracranial hemorrhage or mass effect. No definite acute infarct by CT. Cerebral ventricles: Ventricle size is normal for age. Paranasal sinuses: Included paranasal sinuses are essentially clear. Mastoid air cells: No significant acute finding. Bones/joints: No definite acute skull fracture. CT/CT head wo con* [id number] IMPRESSION: 1. No acute intracranial hemorrhage or mass effect. 2. Other findings discussed above. Radiation Dose CTDIVOL = (mGy): DLP = 683.7 (mGy-cm)
[2020-12-28] MEDS: sodium chloride 0.9% 1,000 ML 999 ML IV (23:00)
[2020-12-28 23:08] LABS: Add Urine Microscopic? NO; Charge for UA Resulting for Rev
--- NOTE | 2020-12-28 23:09 | ED_ITS ---
HPI - Altered Mental Status General: Chief Complaint: Altered Mental Status Stated Complaint: NOT ACTING RIGHT/FUSSY Time Seen by Provider: 12/28/20 22:51 History of Present Illness: HPI narrative: Patient arrived via ambulance. Mother states that child has not been acting right the last few weeks. Just been more fussy than usual been act like she has had some possible some abdominal pain. No fever. Does have seizures chronically. Possibly bit her tongue had some blood in the mouth. Mother states stool has been smelling little bit more than usual. No blood in the stool no explosive diarrhea. Patient does have a G-tube in place. Onset (ago): week(s) Timing confirmed by: family member Severity: moderate Consistency of symptoms: Constant Associated symptoms: Deny depression Review of Systems Const: Denies: fever(s), chills or body aches Eyes: Denies: change in vision or blurry vision ENMT: Denies: throat pain or nasal congestion Card: Denies: chest pain or dyspnea on exertion Resp: Denies: dyspnea, productive cough or non-productive cough GI: Reports: excessive flatus and other (Smelly stool); Denies: abdominal pain, nausea or vomiting Musc: Denies: extremity pain Skin/Breast: Denies: rash Neuro: Reports: other (Appears more fussy than normal, child does have autism and MR.); Denies: headache(s) Psych: Denies: anxiety or depression [place]/Lymph: Denies: easy bruising [facility] ED PFSH: Medical History (Updated 12/29/20 @ 01:40 by KRISTA Young) Asthma due to environmental allergies Constipation G tube feedings Insomnia Seasonal allergic rhinitis Spastic quadriplegic cerebral palsy Unspecified intellectual disabilities Urine incontinence Vitamin D deficiency Surgical History History of tonsillectomy and adenoidectomy 2002 Hx of myringotomy 2002 Family History Grandfather Diabetes Paternal grandfather Maternal grandfather Heart disease Maternal grandmother Mother Diabetes Hyperlipidemia Thyroid condition Grandmother Diabetes Paternal grandmother Maternal grandmother Hyperlipidemia Maternal grandmother Thyroid condition Maternal grandmother Paternal grandmother Other Cancer Hypertension Social History Second hand smoke exposure: No Smoking risk assessment/counseling performed?: No Alcohol intake: never Desire information about alcohol rehabilitation?: No Counseling given: No Desire information about substance/drug rehabilitation?: No Counseling given: No Adopted: No Caregiver/support person: Yes Lives independently: No Household members: family Housing: House Marital status: Single Number of children: 0 service: No Current occupational status: disabled History of recent travel: No Sexually active: No Current gender identity: Female Physical Exam Const: COMMON NORMALS: no acute distress HENMT: COMMON NORMALS: normocephalic HEAD & SCALP: normal to inspection and normocephalic FACE & SINUS: normal facial exam and other (Skin is dry lips appear dry) MOUTH: other (No blood noted in the mouth.); oral and palatal mucosa not normal Eye: COMMON NORMALS: conjunctivae normal GENERAL EYE: appearance normal, both eyes and all related structures CONJUNCTIVA: Yes conjunctivae normal Neck/C-Spine: COMMON NORMALS: no JVD Chest: COMMONS NORMALS: normal inspection of the chest Resp: COMMON NORMALS: normal respiratory effort and clear to auscultation bilaterally AUSCULTATION: clear to auscultation bilaterally Cardio: COMMON NORMALS: no JVD, regular rate and regular rhythm RATE: regular rate RHYTHM: regular rhythm GI: COMMON NORMALS: Normal to inspection, nondistended, normoactive bowel sounds present Extremity: COMMON NORMALS: normal to inspection Skin: OTHER: Dry Course Vital Signs: Vital signs: Vital Signs Temperature 100.3 F H 12/29/20 02:24 Pulse Rate 77 12/29/20 02:24 Respiratory Rate 18 12/29/20 02:24 Blood Pressure 103/66 12/29/20 02:24 Pulse Oximetry 98 12/29/20 02:24 MDM - Altered Mental Status MDM Narrative: Medical decision making narrative: Labs negative. Patient was comfortable throughout her stay. No usual signs and symptoms were presented. Patient was discharged home treated for sinusitis. As mother said her sinuses been draining a lot and she felt that she probably had a sinus infection which she has had few times before. Lab Data: Labs: Lab Results 12/28/20 12/28/20 12/29/20 Range/Units 22:58 23:46 00:55 WBC 5.6 (4.0-10.0) 10^3/ uL RBC 4.77 (4.1-5.3) 10^6/u L Hgb 13.7 (11.5-15.3) g/dL Hct 41.9 (37.0-47.0) % MCV 87.8 (81-99) fl MCH 28.7 (28.0-34.0) pg MCHC 32.7 (30.0-36.0) g/dL RDW 12.0 L (12.1-15.1) % Plt Count 358 (130-400) 10^3/c mm MPV 9.1 (7.4-10.4) fL Neut % (Auto) 47.4 % Lymph % (Auto) 38.4 % [place] % (Auto) 11.3 % Eos % (Auto) 2.5 % Baso % (Auto) 0.4 % Neut # (Auto) 2.66 (1.8-7.7) 10^3/u L Lymph # (Auto) 2.2 (0.8-4.8) 10^3/u L [place] # (Auto) 0.6 (0.2-0.9) 10^3/u L Eos # (Auto) 0.1 (0.0-0.8) 10^3/u L Baso # (Auto) 0.0 (0.0-0.1) 10^3/u L Nucleated RBC % (a uto) 0 % Nucleated RBCs # 0.0 /100WBC Sodium (136-145) mmol/L Potassium (3.5-5.1) mmol/L Chloride (98-107) mmol/L Carbon Dioxide (22-29) mmol/L Anion Gap (5-19) BUN (6-20) mg/dL Creatinine (0.5-0.9) mg/dL GFR Calculation (90-130) mL/min Glucose (65-115) mg/dL Calculated Osmolal ity (285-295) mOsm/k g Lactate (0.5-2.2) mmol/L Calcium (8.5-10.5) mg/dL Total Bilirubin (0.15-1.2) mg/dL AST (0-32) U/L ALT (0-33) U/L Alkaline Phosphata se (35-105) IU/L Total Protein (6.6-8.7) g/dL Albumin (3.5-5.2) g/dL Globulin (1.3-4.6) g/dL Lipase (13-60) U/L Urine Color Yellow (Yellow) Urine Appearance Clear (CLEAR) Urine pH 8 H (5-7) Ur Specific Gravit y 1.010 (1.005-1.030) Urine Protein Neg (Negative) Urine Glucose (UA) Norm (Normal) Urine Ketones Negative (Negative) Urine Blood Neg (Negative) Urine Nitrate Negative (Negative) Urine Bilirubin Neg (Negative) Prot Sulfosalicyli c Acd Negative (Negative) Urine Urobilinogen Norm (Negative) mg/dL Ur Leukocyte Brittnee ase Negative (Negative) SARS-CoV-2 Ag (Rap id) Negative (Negative) 12/29/20 12/29/20 Range/Units 00:55 00:55 WBC (4.0-10.0) 10^3/ uL RBC (4.1-5.3) 10^6/u L Hgb (11.5-15.3) g/dL Hct (37.0-47.0) % MCV (81-99) fl MCH (28.0-34.0) pg MCHC (30.0-36.0) g/dL RDW (12.1-15.1) % Plt Count (130-400) 10^3/c mm MPV (7.4-10.4) fL Neut % (Auto) % Lymph % (Auto) % [place] % (Auto) % Eos % (Auto) % Baso % (Auto) % Neut # (Auto) (1.8-7.7) 10^3/u L Lymph # (Auto) (0.8-4.8) 10^3/u L [place] # (Auto) (0.2-0.9) 10^3/u L Eos # (Auto) (0.0-0.8) 10^3/u L Baso # (Auto) (0.0-0.1) 10^3/u L Nucleated RBC % (a uto) % Nucleated RBCs # /100WBC Sodium 138 (136-145) mmol/L Potassium 4.1 (3.5-5.1) mmol/L Chloride 105 (98-107) mmol/L Carbon Dioxide 21 L (22-29) mmol/L Anion Gap 16.1 (5-19) BUN 14 (6-20) mg/dL Creatinine 0.2 L (0.5-0.9) mg/dL GFR Calculation 444.2 H (90-130) mL/min Glucose 124 H (65-115) mg/dL Calculated Osmolal ity 288 (285-295) mOsm/k g Lactate 1.0 (0.5-2.2) mmol/L Calcium 8.6 (8.5-10.5) mg/dL Total Bilirubin 0.2 (0.15-1.2) mg/dL AST 19 (0-32) U/L ALT 21 (0-33) U/L Alkaline Phosphata se 133 H (35-105) IU/L Total Protein 6.7 (6.6-8.7) g/dL Albumin 3.9 (3.5-5.2) g/dL Globulin 2.8 (1.3-4.6) g/dL Lipase 40 (13-60) U/L Urine Color (Yellow) Urine Appearance (CLEAR) Urine pH (5-7) Ur Specific Gravit y (1.005-1.030) Urine Protein (Negative) Urine Glucose (UA) (Normal) Urine Ketones (Negative) Urine Blood (Negative) Urine Nitrate (Negative) Urine Bilirubin (Negative) Prot Sulfosalicyli c Acd (Negative) Urine Urobilinogen (Negative) mg/dL Ur Leukocyte Brittnee ase (Negative) SARS-CoV-2 Ag (Rap id) (Negative) Discharge Plan Discharge Patient Disposition: Home Clinical Impression: Acute sinus infection Qualifiers: Sinusitis location: maxillary Recurrence: non-recurrent Qualified Code(s): J01.00 - Acute maxillary sinusitis, unspecified Condition: Stable Prescriptions: New azithromycin 200 mg/5 mL suspension for reconstitution See Rx Instructions .ROUTE .COMPLEX Qty: 30 RF: 0 No Action (DME) OptiChamber Shellie-Med Msk Spacer See Rx Instructions .ROUTE .MEDSUPPLY Qty: 1 RF: 0 silver sulfadiazine [Silvadene] 1 % cream 1 applic topical BID Qty: 50 RF: 0 mupirocin 2 % ointment 1 applic topical BID Qty: 22 RF: 1 tizanidine 4 mg tablet 8 mg PO TID 30 Days Qty: 180 RF: 11 baclofen 10 mg tablet 30 mg PO QID Qty: 360 RF: 8 (DME) G-tube See Rx Instructions .Route .MEDSUPPLY Qty: 1 RF: 0 albuterol sulfate [Ventolin HFA] 90 mcg/actuation HFA aerosol inhaler 2 puff INHALATION Q4H PRN (Reason: shortness of breath or wheezing) Qty: 6.7 RF: 5 cetirizine 5 mg/5 mL solution 5 mg PO DAILY Qty: 150 RF: 5 cholecalciferol (vitamin D3) 125 mcg (5,000 unit) capsule 125 mcg PO DAILY Qty: 30 RF: 5 Flovent HFA 110 mcg/actuation HFA aerosol inhaler 2 puff INHALATION Q12H Qty: 12 RF: 5 lactulose 20 gram/30 mL solution 20 g PO BID PRN (Reason: constipation) Qty: 1500 RF: 5 montelukast [Singulair] 10 mg tablet 10 mg PO DAILY Qty: 30 RF: 5 hydroxyzine HCl 10 mg/5 mL solution 50 mg PO .at bedtime 30 Days Qty: 750 RF: 5 (DME) Hospital bed with full bed rails See Rx Instructions .Route .MEDSUPPLY Qty: 1 RF: 0 albuterol sulfate 2.5 mg /3 mL (0.083 %) solution for nebulization 2.5 mg INHALATION Q6H PRN (Reason: shortness of breath or wheezing) Qty: 75 RF: 5 medroxyprogesterone [Depo-Provera] 150 mg/mL suspension 150 mg IM ONCE Qty: 1 RF: 0 carbamazepine [Tegretol] 100 mg/5 mL suspension See Rx Instructions PO TID Qty: 450 RF: 11 zbbfqipy-ojotozxqm-IR 3.5-10,000-1 mg/mL-unit/mL-% drops,suspension 4 drp otic (ear) BEDTIME RF: 0 metoprolol tartrate 25 mg Tablet 12.5 mg PO BID@0900,2100 Qty: 60 RF: 0 Discharge Orders: Discharge ED (Routine); Ordered 12/29/20 Ordered By: Amari Kraft Referrals: Roldan Guerrero, PRODUCTION CONTROL EXPERT-C [Primary Care Provider] - Discharge Diet: Usual diet Discharge Activity: Increase activity as tolerated Patient Instructions: Sinusitis (ED) Activity Restrictions/Additional Instructions: Follow-up with medical provider as directed. Take medications as prescribed. Return to the ER or your medical provider if condition worsens. Please read and understand discharge instructions. If any questions ask please. Coding Level of Care Code ED Tipple Boss for Tobias Fwd Exam Comprehensive
[2020-12-28 23:31] LABS: Bilirubin Urine Neg (Negative); Blood Urine Neg (Negative); Glucose Urine UA Norm (Normal); Ketones Urine Negative (Negative); Leukocyte Esterase Urine Negative (Negative); Nitrate Urine Negative (Negative); Protein Urine Neg (Negative); Sulfosalicylic Acid Urine Negative (Negative); Urine Appearance Clear (CLEAR); Urine Color Yellow (Yellow); Urobilinogen Urine Norm (Negative); pH Urine 8 (5-7)
[2020-12-28 23:39] VITALS: BP 119/65
[2020-12-29 00:17] VITALS: BP 108/60; PULSE 77; RESP 18; O2SAT 98
[2020-12-29 00:22] LABS: SARS Covid-2 Antigen Negative (Negative)
[2020-12-29 01:03] LABS: Basophils % 0.4 %; Eosinophils # 0.1 10^3/uL (0.0-0.8); Eosinophils % 2.5 %; Hematocrit 41.9 % (37.0-47.0); Hemoglobin 13.7 g/dL (11.5-15.3); Lymphocytes # 2.2 10^3/uL (0.8-4.8); Lymphocytes % 38.4 %; Mean Corpuscular HGB Conc 32.7 g/dL (30.0-36.0); Mean Corpuscular Hemoglobin 28.7 pg (28.0-34.0); Mean Corpuscular Volume 87.8 fl (81-99); Mean Platelet Volume 9.1 fL (7.4-10.4); Monocytes # 0.6 10^3/uL (0.2-0.9); Monocytes % 11.3 %; Neutrophils # 2.66 10^3/uL (1.8-7.7); Neutrophils % 47.4 %; Nucleated Red Blood Cells % 0 %; Platelet Count 358 10^3/cmm (130-400); Red Blood Count 4.77 10^6/uL (4.1-5.3); White Blood Count 5.6 10^3/uL (4.0-10.0)
[2020-12-29 01:23] LABS: Alanine Aminotransferase 21 U/L (0-33); Albumin Level 3.9 g/dL (3.5-5.2); Alkaline Phosphatase 133 IU/L (35-105); Aspartate Amino Transferase 19 U/L (0-32); Blood Urea Nitrogen 14 mg/dL (6-20); Calcium 8.6 mg/dL (8.5-10.5); Carbon Dioxide 21 mmol/L (22-29); Chloride 105 mmol/L (98-107); Globulin 2.8 g/dL (1.3-4.6); Glomerular Filtration Rate 444.2 mL/min (90-130); Glucose 124 mg/dL (65-115); Lipase 40 U/L (13-60); Osmolality Calculated 288 mOsm/kg (285-295); Sodium 138 mmol/L (136-145); Total Bilirubin 0.2 mg/dL (0.15-1.2); Total Protein 6.7 g/dL (6.6-8.7)
[2020-12-29 01:31] LABS: Anion Gap 16.1 (5-19); Potassium 4.1 mmol/L (3.5-5.1)
[2020-12-29 02:24] VITALS: BP 103/66; PULSE 77; RESP 18; TEMP 37.9; O2SAT 98
== END 2020-12-29 02:06 | disposition home or self-care (01) ==
PROVIDERS: Emergency Medicine; Emergency Provider Nurse Practitioner Family; PCP Nurse Practitioner
DX: J01.00 Acute maxillary sinusitis, unspecified (principal); J45.909 Unspecified asthma, uncomplicated; G80.0 Spastic quadriplegic cerebral palsy; F84.0 Autistic disorder; F79 Unspecified intellectual disabilities; Z93.1 Gastrostomy status
CPT/HCPCS: 36415; 70450; 71045; 80053; 81003; 83605; 83690; 85025; 87040; 87426; 93005; 96360; 99283; J7030; Q0144

== ENCOUNTER 2021-02-27 13:55 | Emergency (ER) | payer MEDICAID, SELFPAY ==
[2021-02-27] VITALS (8 sets, daily range): BP systolic 104–126; BP diastolic 61–80; PULSE 93–120; RESP 18–26; TEMP 36.2; O2SAT 95–99; BMI 31.5
--- NOTE | 2021-02-27 14:05 | ED_ITS ---
HPI - General Adult General: Chief complaint: Extremity Injury, Lower Stated complaint: L LEG PAIN Time Seen by Provider: 02/27/21 14:03 History of Present Illness: HPI narrative: Patient is a 20-year-old female with history of cerebral palsy complicated by spastic movements presents the emergency room with acute swelling over the left thigh since yesterday night. Patient baseline is usually bedbound but has been able to get out of bed. Since yesterday night, mom and dad noticed that patient has had swelling over the left thigh. Mom denies any fever or chills, induration, redness over the thigh. Mom denies any recent trauma or fall. Onset:1 day ago Duration:1 day Location:home Severity: moderate Review of Systems Narrative: Constitutional: No fever, no chills. HEENT: No vision changes CV: No chest pain, no palpitations PULM: no cough, no dyspnea. GI: No abdominal pain, no N/V/D. : No dysuria MSKEL: +L thigh swelling SKIN: No new rashes, no lesions. NEURO: No headache, no focal weakness. HEME: No visible bruises PSYCH: Normal mood PFSH ED PFSH: Medical History Asthma due to environmental allergies Constipation G tube feedings Insomnia Seasonal allergic rhinitis Spastic quadriplegic cerebral palsy Unspecified intellectual disabilities Urine incontinence Vitamin D deficiency Surgical History History of tonsillectomy and adenoidectomy 2002 Hx of myringotomy 2002 Family History Grandfather Diabetes Paternal grandfather Maternal grandfather Heart disease Maternal grandmother Mother Diabetes Hyperlipidemia Thyroid condition Grandmother Diabetes Paternal grandmother Maternal grandmother Hyperlipidemia Maternal grandmother Thyroid condition Maternal grandmother Paternal grandmother Other Cancer Hypertension Social History Second hand smoke exposure: No Smoking risk assessment/counseling performed?: No Alcohol intake: never Desire information about alcohol rehabilitation?: No Counseling given: No Desire information about substance/drug rehabilitation?: No Counseling given: No Adopted: No Caregiver/support person: Yes Lives independently: No Household members: family Housing: House Marital status: Single Number of children: 0 service: No Current occupational status: disabled History of recent travel: No Sexually active: No Current gender identity: Female Female Reproductive History: Date of last menstrual period: 08/01/20 Physical Exam Narrative: EXAM NARRATIVE: Head: Atraumatic Eyes: PERRL, conjunctiva without injection ENT: Mucous membrane moist NECK: Supple, ROM intact LUNGS: LCTAB, no crackles/rhonchi CV: Sinus tacycardia ABDOMEN: Soft, nontender in all quadrants EXTREMITY: +L thigh swelling, compartment nontense, no visible overlying edema/induration/fluctuance no crepitus, 2+ DP/PT pulses on the left side SKIN: No rash or erythema NEURO: Awake and alert, no focal motor deficits PSYCH: Normal mood and affect Course Vital Signs: Vital signs: Vital Signs Temperature 97.2 F L 02/27/21 14:03 Pulse Rate 102 H 02/27/21 22:14 Respiratory Rate 22 H 02/27/21 22:14 Blood Pressure 104/61 02/27/21 22:14 Pulse Oximetry 95 02/27/21 22:14 MDM - General Adult MDM Narrative: Medical decision making narrative: 20-year-old female presents emergency room for concerns of left lower extremity swelling in the absence of trauma. On exam, patient has and is noted to have left leg swelling. Patient is also noted to be tachycardic to the 110s to 120. Today including CBC, BMP, ultrasound of the lower extremity, x-rays Intervention: IVF, pain medicine On reassessment, patient was found to have commuinted femoral shaft fracture L. Family again does not recall how this incident happened. Because Patient has special needs and found with significant trauma with delayed presentation, case was urgently discussed with JOHANA Castano who will follow the case. Given morphine IV x 2 dose for pain in the ED. Case discussed with Dr. Staples our orthopedic provider who informs me that given the size of the femur as well as the new nature of the fracture, it is better the patient go to a pediatric orthopedic center or smaller internal rods are available. Case was discussed with Dr. hay at [facility] with plans for transfer. Disposition: Transfer to outside hospital Lab Data: Labs: Lab Results 10/21/21 10/21/21 10/21/21 15:32 15:32 15:32 WBC 7.3 10^3/uL 10^3/ uL (4.0-10.0) RBC 4.06 10^6/uL L 10 ^6/uL (4.1-5.3) Hgb 11.9 g/dL g/dL (11.5-15.3) Hct 36.6 % L % (37.0-47.0) MCV 90.1 fl fl (81-99) MCH 29.3 pg pg (28.0-34.0) MCHC 32.5 g/dL g/dL (30.0-36.0) RDW 12.5 % % (12.1-15.1) Plt Count 305 10^3/cmm 10^3 /cmm (130-400) MPV 9.5 fL fL (7.4-10.4) Neut % (Auto) 62.3 % % Lymph % (Auto) 24.0 % % [place] % (Auto) 11.8 % % Eos % (Auto) 1.2 % % Baso % (Auto) 0.3 % % Neut # (Auto) 4.54 10^3/uL 10^3 /uL (1.8-7.7) Lymph # (Auto) 1.8 10^3/uL 10^3/ uL (0.8-4.8) [place] # (Auto) 0.9 10^3/uL 10^3/ uL (0.2-0.9) Eos # (Auto) 0.1 10^3/uL 10^3/ uL (0.0-0.8) Baso # (Auto) 0.0 10^3/uL 10^3/ uL (0.0-0.1) Nucleated RBC % (a uto) 0 % % Nucleated RBCs # 0.0 /100WBC /100W BC PT 13.70 SECONDS SEC ONDS (12.1-14.9) INR 1.02 (0.8-1.2) APTT 27.1 SECONDS SECO NDS (23.9-36.7) Sodium 133 mmol/L L mmol /L (136-145) Potassium 4.2 mmol/L mmol/L (3.5-5.1) Chloride 101 mmol/L mmol/L (98-107) Carbon Dioxide 22 mmol/L mmol/L (22-29) Anion Gap 14.2 (5-19) BUN 11 mg/dL mg/dL (6-20) Creatinine 0.2 mg/dL L mg/dL (0.5-0.9) GFR Calculation 444.2 mL/min H mL /min (90-130) Glucose 130 mg/dL H mg/dL (65-115) Calculated Osmolal ity 277 mOsm/kg L mOs m/kg (285-295) Calcium 8.6 mg/dL mg/dL (8.5-10.5) Total Bilirubin 0.2 mg/dL mg/dL (0.15-1.2) AST 43 U/L H U/L (0-32) ALT 84 U/L H U/L (0-33) Alkaline Phosphata se 97 IU/L IU/L (35-105) Total Protein 5.9 g/dL L g/dL (6.6-8.7) Albumin 3.7 g/dL g/dL (3.5-5.2) Globulin 2.2 g/dL g/dL (1.3-4.6) Lipase 30 U/L U/L (13-60) Blood Type Rho(D) Type Antibody Screen 02/27/21 17:17 WBC RBC Hgb Hct MCV MCH MCHC RDW Plt Count MPV Neut % (Auto) Lymph % (Auto) [place] % (Auto) Eos % (Auto) Baso % (Auto) Neut # (Auto) Lymph # (Auto) [place] # (Auto) Eos # (Auto) Baso # (Auto) Nucleated RBC % (a uto) Nucleated RBCs # PT INR APTT Sodium Potassium Chloride Carbon Dioxide Anion Gap BUN Creatinine GFR Calculation Glucose Calculated Osmolal ity Calcium Total Bilirubin AST ALT Alkaline Phosphata se Total Protein Albumin Globulin Lipase Blood Type A Negative Rho(D) Type Negative Antibody Screen Negative Imaging Data^: Other Imaging: Radiologist's impression: [address] [id number] ReportSigned Patient: Estephanie Choi #: [id number]: 2000Acct#:[id number] Age/Sex: 20 / FADM Date: 02/27/21Loc: ERRoom/Bed:Attending Dr: Ordering Provider/Ordering MD: Risa Ross MD Date of Service: 02/27/21 Procedure(s): XR femur LT min 2V* 78040 Accession Number(s): [id number] Report Number: [id number] WS: [id number] Left femur and thigh, AP and lateral views, 02/27/2021 Clinical Data: rule out fx Comparison: None. Findings: There is a comminuted mid shaft fracture of the left femur. There is soft tissue swelling about the fracture site. The left hip and left knee appear to be intact. XR/XR femur LT min 2V* [id number] Impression: Comminuted midshaft fracture of the left femur. Dictated By:Priya Woodruff MDSigned By:Priya Woodruff MDSigned Date/Time:02/27/211604DD/ [address] [id number] Scan ReportSigned Patient: Estephanie Choi #: [id number]: 2000Acct#:[id number]/Sex: 20 / FADM Date: 02/27/21Loc: ERRoom/Bed:Attending Dr: Ordering Provider/Ordering MD: Risa Ross MD Date of Service: 02/27/21 Procedure(s): CT head wo con* [id number] Accession Number(s): [id number] Report Number: [id number] PROCEDURE INFORMATION: Exam: CT Head Without Contrast Exam date and time: 02/27/2021 4:49 PM Age: 20 years old Clinical indication: Injury or trauma; Other: Femur FX. Rule out possible injury; Blunt trauma (contusions or hematomas); Additional info: Rule out injuries TECHNIQUE: Imaging protocol: Computed tomography of the head without contrast. Radiation optimization: All CT scans at this facility use at least one of these dose optimization techniques: automated exposure control; mA and/or kV adjustment per patient size (includes targeted exams where dose is matched to clinical indication); or iterative reconstruction. COMPARISON: CT head wo con* [id number] 12/28/2020 11:42 PM RADIATION DOSE METRICS: Total DLP (mGy-cm): 912.17 FINDINGS: Brain: Normal. No hemorrhage. Unremarkable white matter. No mass effect. Cerebral ventricles: No ventriculomegaly. Paranasal sinuses: Visualized sinuses are unremarkable. No fluid levels. Mastoid air cells: Visualized mastoid air cells are well aerated. Bones/joints: Unremarkable. No acute fracture. Soft tissues: Unremarkable. CT/CT head wo con* [id number] IMPRESSION: No acute intracranial abnormality. Radiation Dose CTDIVOL = (mGy): DLP = 912.17 (mGy-cm) Dictated By:Criss Mcneill By:Criss Mcneill Date/Time:02/27/21 1742DD/ [address] [place], [place] [id number] ReportSigned Patient: Estephanie Choi #: [id number]: /Sex: 20 / FADM Date: 02/27/21Loc: ERRoom/Bed:Attending Dr: Ordering Provider/Ordering MD: Risa Ross MD Date of Service: 02/27/21 Procedure(s): [place] [id number] Accession Number(s): [id number] Report Number: [id number] Estephanie Choi Age: 20 Gender: F : 2000 Exam Date: 02/27/2021 14:29 Ordering Phys: Risa Ross MD Technologist: LORAINE Exam Location: [facility] [place] Indication: RULE OUT DVT PROCEDURES: Venous duplex imaging was performed in bilateral lower extremities. The following venous structures were evaluated: common femoral vein, profunda vein, proximal portion of the greater saphenous vein, superficial femoral vein, and the popliteal vein. In addition, the posterior tibial and peroneal trunk were evaluated. Serial compression, augmentation maneuvers, and spectral Doppler flow evaluation were performed. FINDINGS: Normal 2-D Doppler and augmentation and compressibility throughout the lower extremity venous structures. Additional imaging through the proximal calf veins also reveals no thrombus. Limited evaluation of the greater saphenous vein is patent with no thrombus.. CONCLUSIONS No evidence of left lower extremity DVT. No evidence of right lower extremity DVT. Luciano Mendes MD (Electronically Signed) Final Date: 27 February 2021 17:19 S Discharge Plan Discharge Patient Disposition: Transfer to ED Clinical Impression: Leg swelling, Femur fracture Condition: Stable Prescriptions: No Action (DME) OptiChamber Shellie-Med Msk Spacer See Rx Instructions .ROUTE .MEDSUPPLY Qty: 1 RF: 0 tizanidine 4 mg tablet 8 mg PO TID 30 Days Qty: 180 RF: 11 baclofen 10 mg tablet 30 mg PO QID Qty: 360 RF: 8 (DME) G-tube See Rx Instructions .Route .MEDSUPPLY Qty: 1 RF: 0 albuterol sulfate [Ventolin HFA] 90 mcg/actuation HFA aerosol inhaler 2 puff INHALATION Q4H PRN (Reason: shortness of breath or wheezing) Qty: 6.7 RF: 5 Flovent HFA 110 mcg/actuation HFA aerosol inhaler 2 puff INHALATION Q12H Qty: 12 RF: 5 lactulose 20 gram/30 mL solution 20 g PO BID PRN (Reason: constipation) Qty: 1500 RF: 5 (DME) Hospital bed with full bed rails See Rx Instructions .Route .MEDSUPPLY Qty: 1 RF: 0 albuterol sulfate 2.5 mg /3 mL (0.083 %) solution for nebulization 2.5 mg INHALATION Q6H PRN (Reason: shortness of breath or wheezing) Qty: 75 RF: 5 zafirlukast [Accolate] 10 mg tablet 20 mg PO BID Qty: 60 RF: 4 hydroxyzine HCl 10 mg/5 mL solution 50 mg PO BEDTIME RF: 0 Tegretol 100 mg/5 mL suspension See Rx Instructions PO TID RF: 0 Depo-Provera 150 mg/mL suspension 150 mg IM Q90D RF: 0 cholecalciferol (vitamin D3) 125 mcg (5,000 unit) capsule 125 mcg PO QAM RF: 0 cetirizine 5 mg/5 mL solution 5 mg PO BEDTIME RF: 0 trazodone 50 mg tablet 25 - 50 mg PO BEDTIME RF: 0 Referrals: Roldan Guerrero, SENIOR PYTHON DEVELOPER-C [Primary Care Provider] - Discharge Diet: Advance as tolerated Discharge Activity: Resume usual activity Patient Instructions: Leg Edema (ED) Coding Level of Care Code ED Plate Stacker Hand for Chg Fwd
--- NOTE | 2021-02-27 14:13 | XR_ITS ---
WS: [id number] Left femur and thigh, AP and lateral views, 02/27/2021 Clinical Data: rule out fx Comparison: None. Findings: There is a comminuted mid shaft fracture of the left femur. There is soft tissue swelling about the f racture site. The left hip and left knee appear to be intact. XR/XR femur LT min 2V* [id number] Impression: Comminuted midshaft fracture of the left femur.
--- NOTE | 2021-02-27 14:13 | USCV_ITS ---
Estephanie Choi Age: 20 Gender: F : 2000 Exam Date: 02/27/2021 14:29 Ordering Phys: Risa Ross MD Technologist: LORAINE Exam Location: [facility] [place] Indication: RULE OUT DVT PROCEDURES: Venous duplex imaging was performed in bilateral lower extremities. The following venous structures were evaluated: common femoral vein, profunda vein, proximal portion of the greater saphenous vein, superficial femoral vein, and the popliteal vein. In addition, the posterior tibial and peroneal trunk were evaluated. Serial compression, augmentation maneuvers, and spectral Doppler flow evaluation were performed. FINDINGS: Normal 2-D Doppler and augmentation and compressibility throughout the lower extremity venous structures. Additional imaging through the proximal calf veins also reveals no thrombus. Limited evaluation of the greater saphenous vein is patent with no thrombus.. CONCLUSIONS No evidence of left lower extremity DVT. No evidence of right lower extremity DVT. Luciano Mendes MD (Electronically Signed) Final Date: 27 February 2021 17:19 S
--- NOTE | 2021-02-27 14:13 | XR_ITS ---
WS: [id number] Left hip, AP view, 02/27/2021 Clinical Data: rule out fx Comparison: None. Findings: The left hip is intact. There is a comminuted midshaft fracture of the left femur. XR/XR hip LT 2-3V wo/w pel* [id number] Impression: Negative left hip. Comminuted mid shaft fracture of left femur.
[2021-02-27] MEDS: sodium chloride 0.9% 1,000 ML 999 ML IV (15:40)
[2021-02-27] MEDS: morphine 4 mg/mL SDV 1 mL IVP ×2 (15:41→18:57)
[2021-02-27 16:07] LABS: Alanine Aminotransferase 84 U/L (0-33); Albumin Level 3.7 g/dL (3.5-5.2); Alkaline Phosphatase 97 IU/L (35-105); Aspartate Amino Transferase 43 U/L (0-32); Blood Urea Nitrogen 11 mg/dL (6-20); Calcium 8.6 mg/dL (8.5-10.5); Carbon Dioxide 22 mmol/L (22-29); Chloride 101 mmol/L (98-107); Globulin 2.2 g/dL (1.3-4.6); Glomerular Filtration Rate 444.2 mL/min (90-130); Glucose 130 mg/dL (65-115); Lipase 30 U/L (13-60); Osmolality Calculated 277 mOsm/kg (285-295); Sodium 133 mmol/L (136-145); Total Bilirubin 0.2 mg/dL (0.15-1.2); Total Protein 5.9 g/dL (6.6-8.7)
[2021-02-27 16:09] LABS: Anion Gap 14.2 (5-19); Potassium 4.2 mmol/L (3.5-5.1)
[2021-02-27 16:32] LABS: INR 1.02 (0.8-1.2)
[2021-02-27 16:37] LABS: Basophils % 0.3 %; Eosinophils # 0.1 10^3/uL (0.0-0.8); Eosinophils % 1.2 %; Hematocrit 36.6 % (37.0-47.0); Hemoglobin 11.9 g/dL (11.5-15.3); Lymphocytes # 1.8 10^3/uL (0.8-4.8); Mean Corpuscular HGB Conc 32.5 g/dL (30.0-36.0); Mean Corpuscular Hemoglobin 29.3 pg (28.0-34.0); Mean Corpuscular Volume 90.1 fl (81-99); Mean Platelet Volume 9.5 fL (7.4-10.4); Monocytes # 0.9 10^3/uL (0.2-0.9); Monocytes % 11.8 %; Neutrophils # 4.54 10^3/uL (1.8-7.7); Neutrophils % 62.3 %; Nucleated Red Blood Cells % 0 %; Partial Thromboplastin Time 27.1 SECONDS (23.9-36.7); Platelet Count 305 10^3/cmm (130-400); Red Blood Count 4.06 10^6/uL (4.1-5.3); Red Cell Distribution Width 12.5 % (12.1-15.1); White Blood Count 7.3 10^3/uL (4.0-10.0)
--- NOTE | 2021-02-27 16:49 | CTR_ITS ---
PROCEDURE INFORMATION: Exam: CT Head Without Contrast Exam date and time: 02/27/2021 4:49 PM Age: 20 years old Clinical indication: Injury or trauma; Other: Femur FX. Rule out possible injury; Blunt trauma (contusions or hematomas); Additional info: Rule out injuries TECHNIQUE: Imaging protocol: Computed tomography of the head without contrast. Radiation optimization: All CT scans at this facility use at least one of these dose optimization techniques: automated exposure control; mA and/or kV adjustment per patient size (includes targeted exams where dose is matched to clinical indication); or iterative reconstruction. COMPARISON: CT head wo con* [id number] 12/28/2020 11:42 PM RADIATION DOSE METRICS: Total DLP (mGy-cm): 912.17 FINDINGS: Brain: Normal. No hemorrhage. Unremarkable white matter. No mass effect. Cerebral ventricles: No ventriculomegaly. Paranasal sinuses: Visualized sinuses are unremarkable. No fluid levels. Mastoid air cells: Visualized mastoid air cells are well aerated. Bones/joints: Unremarkable. No acute fracture. Soft tissues: Unremarkable. CT/CT head wo con* [id number] IMPRESSION: No acute intracranial abnormality. Radiation Dose CTDIVOL = (mGy): DLP = 912.17 (mGy-cm)
--- NOTE | 2021-02-27 16:59 | PC.PHAR ---
pts mother verified pts medications-pts mother states the pt has to have brand name tegretol-pts mother states the pt is still taking trazodone ext med history shows last 01/06/21 30d/s-notes are made in the pharmacy comments
--- NOTE | 2021-02-27 18:07 | PM.HP ---
Providers/Chief Complaint Admitting Physician: Benny Samaniego MD Primary Care Provider: KODY Chacon Chief Complaint: L LEG PAIN History of Present Illness Estephanie Choi is a 20 year old female Medications/Allergies Home Medications Medication Instructions Recorded Confirmed Last Taken Type inhalat.spacing dev,med. mask #1 each 05/24/19 02/27/21 Unknown Rx Hospital bed with full bed rails #1 ea 08/01/20 02/27/21 Unknown Rx albuterol sulfate 2.5 mg INHALATION Q6H PRN #75 ml 10/04/20 02/27/21 Unknown Rx baclofen 10 mg tablet 30 mg PO QID #360 tab 11/25/20 02/27/21 02/27/21 12:00 Rx tizanidine 4 mg tablet 8 mg PO TID 30 Days #180 tab 11/25/20 02/27/21 02/27/21 12:00 Rx albuterol sulfate 90 mcg/actuation 2 puff INHALATION Q4H PRN #6.7 gm 11/26/20 02/27/21 Unknown Rx aerosol inhaler fluticasone propionate 110 2 puff INHALATION Q12H #12 gm 11/26/20 02/27/21 Unknown Rx mcg/actuation HFA aerosol inhaler lactulose 20 gram/30 mL oral 20 g PO BID PRN #1500 ml 11/26/20 02/27/21 Unknown Rx solution G-tube #1 ea 12/14/20 02/27/21 Unknown Rx zafirlukast 10 mg tablet 20 mg PO BID #60 tab 02/03/21 02/27/21 02/27/21 Rx Depo-Provera 150 mg IM Q90D 02/27/21 02/27/21 Unknown History carbamazepine [Tegretol] See Rx Instructions PO TID 02/27/21 02/27/21 02/27/21 12:00 History cetirizine 5 mg PO BEDTIME 02/27/21 02/27/21 02/26/21 History cholecalciferol (vitamin D3) 125 mcg PO QAM 02/27/21 02/27/21 02/27/21 History hydroxyzine HCl 50 mg PO BEDTIME 02/27/21 02/27/21 02/26/21 History trazodone 25 - 50 mg PO BEDTIME 02/27/21 02/27/21 Unknown History Allergies Allergy/AdvReac Type Severity Reaction Status Date / Time azithromycin [From Zithromax] Allergy Unknown Verified 02/27/21 16:50 cephalexin [From Keflex] Allergy Unknown Verified 02/27/21 16:50 ibuprofen Allergy ADR-Gastrointestinal Verified 02/27/21 16:50 Upset lactose Allergy Unknown Verified 02/27/21 16:50 levofloxacin [From Levaquin] Allergy ALGY-Rash Verified 02/27/21 16:50 Penicillins Allergy Unknown Verified 02/27/21 16:50 pineapple Allergy Unknown Verified 02/27/21 16:50 Sulfa (Sulfonamide Allergy ALGY-Rash Verified 02/27/21 16:50 Antibiotics) PFSH Acute PFSH: Medical History Asthma due to environmental allergies Constipation G tube feedings Insomnia Seasonal allergic rhinitis Spastic quadriplegic cerebral palsy Unspecified intellectual disabilities Urine incontinence Vitamin D deficiency Surgical History History of tonsillectomy and adenoidectomy 2001 Hx of myringotomy 2001 Family History Grandfather Diabetes Paternal grandfather Maternal grandfather Heart disease Maternal grandmother Mother Diabetes Hyperlipidemia Thyroid condition Grandmother Diabetes Paternal grandmother Maternal grandmother Hyperlipidemia Maternal grandmother Thyroid condition Maternal grandmother Paternal grandmother Other Cancer Hypertension Social History Second hand smoke exposure: No Smoking risk assessment/counseling performed?: No Alcohol intake: never Desire information about alcohol rehabilitation?: No Counseling given: No Desire information about substance/drug rehabilitation?: No Counseling given: No Adopted: No Caregiver/support person: Yes Lives independently: No Household members: family Housing: House Marital status: Single Number of children: 0 service: No Current occupational status: disabled History of recent travel: No Sexually active: No Current gender identity: Female Female Reproductive History: Date of last menstrual period: 08/01/20 Vitals/I&O/Wt Last Vital Signs Temp 97.2 F L 02/27/21 14:03 Pulse 119 H 02/27/21 14:12 Resp 18 02/27/21 14:03 BP 126/74 02/27/21 14:12 Pulse Ox 97 02/27/21 14:12 02/27/21 02/27/21 02/27/21 06:59 14:59 22:59 Intake Total 1000 / 1000 Balance 1000 / 1000 Weight last 48 hrs Weight 75.75 kg Data : 02/27/21 15:32 02/27/21 15:32 Coding Level of Care Code 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
[2021-02-27] MEDS: fentaNYL 50 mcg/mL INJ 2mL IVP (20:13)
[2021-02-27] MEDS: fentaNYL 50 mcg/mL INJ 2mL 25 MCG IVP (21:12)
--- NOTE | 2021-02-27 21:44 | PC.NURSE ---
PT'S MOTHER AT BEDSIDE, UPDATED REGARDING PENDING TRANSFER TO [facility]. PT BED LINENS CHANGED DUE TO PEG TUBE LEAKING, DRESSING APPLIED. UNSUCCESSFUL ATTEMPT X 2 TO CALL REPORT TO [facility].
[2021-02-27] MEDS: HYDROmorphone 1 mg/mL INJ 1 mL 0.5 MG IVP (22:07)
[2021-02-27] MEDS: HYDROmorphone 1 mg/mL INJ 1 mL IVP (23:55)
[2021-02-28] MEDS: sodium chloride 0.9% 1,000 ML 999 ML IV (01:11)
[2021-02-28] MEDS: LORazepam 2 mg/mL INJ 1 mL 1 MG IVP (01:11)
[2021-02-28] MEDS: HYDROmorphone 1 mg/mL INJ 1 mL IVP (02:57)
[2021-02-28 03:17] VITALS: BP 122/80; PULSE 99; RESP 22; O2SAT 97
== END 2021-02-28 03:18 ==
PROVIDERS: Emergency Provider Emergency Medicine; PCP Nurse Practitioner
DX: M79.89 Other specified soft tissue disorders (principal); S72.355A Nondisplaced comminuted fracture of shaft of left femur, initial encounter for closed fracture; X58.XXXA Exposure to other specified factors, initial encounter; G80.0 Spastic quadriplegic cerebral palsy
CPT/HCPCS: 51702; 70450; 73502; 73552; 80053; 83690; 85025; 85610; 85730; 86850; 86900; 93970; 96361; 96374; 96375; 96376; 99285; J1170; J2060; J2270; J3010; J7030

== ENCOUNTER → 2021-05-19 15:47 | Outpatient (BNVA) | payer MEDICAID, SELFPAY | PROVIDERS: PCP Nurse Practitioner; Visit Provider Nurse Practitioner | DX: R73.9 Hyperglycemia, unspecified (principal) | CPT/HCPCS: 80053; 83036 ==

== ENCOUNTER 2021-05-25 15:24 | Emergency (ER) | payer MEDICAID, SELFPAY ==
[2021-05-25 15:38] VITALS: BP 92/61; PULSE 83; RESP 20; TEMP 37.1; O2SAT 96; BMI 28.8
--- NOTE | 2021-05-25 18:39 | XRR_ITS ---
PROCEDURE INFORMATION: Exam: XR Chest Exam date and time: 05/25/2021 6:39 PM Age: 20 years old Clinical indication: Fever TECHNIQUE: Imaging protocol: XR of the chest. Views: 1 view. COMPARISON: CR XR chest 1V portable [id number] 12/28/2020 10:54 PM FINDINGS: Lungs: Unremarkable. No consolidation. Pleural spaces: Unremarkable. No pleural effusion. No pneumothorax. Heart/Mediastinum: Unremarkable. No cardiomegaly. Diaphragm: Elevation of the right diaphragm is increased from the prior study. Bones/joints: Unremarkable. Gastrointestinal tract: Interposed colon between the liver and right diaphragm. XR/XR chest 1V portable [id number] IMPRESSION: No acute findings.
--- NOTE | 2021-05-25 19:28 | W.ED.URI ---
HPI - URI/Sore Throat General: Chief Complaint: Fever Stated Complaint: Lethargic, Slept almost 2 days, exposed to COVID Time Seen by Provider: 05/25/21 19:14 Source: family (father) Mode of arrival: wheelchair Limitations: other (Cerebral palsy, noncommunicative) History of Present Illness: HPI Narrative: Father brought child in for evaluation for possible COVID since she was exposed to family member that had COVID. Patient has had a deep cough for approximately 5 days. She has had no fever. Patient reportedly has been sleeping more than usual for the past 2 days. Patient is now presently awake alert happy and no apparent distress. She has a rare cough. She is afebrile here. Father states she has not had a fever at home. MD elicited complaint: cough Onset (ago): day(s) (5) Consistency: intermittent Severity: mild Exacerbating factors: nothing Relieving factors: nothing Context: sick contacts Associated symptoms: Deny abdominal pain, chills, chest pain, diarrhea, fever(s), nasal congestion or vomiting Review of Systems Const: Denies: fever(s), chills or body aches Eyes: Denies: eye discharge ENMT: Denies: throat pain or nasal congestion Card: Denies: chest pain or edema Resp: Reports: non-productive cough; Denies: dyspnea GI: Denies: abdominal pain, vomiting or diarrhea : Denies: flank pain or dysuria Musc: Denies: neck pain or back pain Skin/Breast: Denies: rash or pruritus Neuro: Reports: other (Sleeping more than usual last 2 days) Psych: Denies: anxiety [place]/Lymph: Denies: enlarged lymph nodes PFSH ED PFSH: Medical History Asthma due to environmental allergies Constipation G tube feedings Insomnia Overweight (BMI 25.0-29.9) Seasonal allergic rhinitis Spastic quadriplegic cerebral palsy Unspecified intellectual disabilities Urine incontinence Vitamin D deficiency Surgical History History of open reduction and internal fixation (ORIF) procedure Left femur at [facility] 02/28/21 History of tonsillectomy and adenoidectomy 2001 Hx of myringotomy 2001 Status post open reduction and internal fixation (ORIF) of fracture Family History Grandfather Diabetes Paternal grandfather Maternal grandfather Heart disease Maternal grandmother Mother Diabetes Hyperlipidemia Thyroid condition Grandmother Diabetes Paternal grandmother Maternal grandmother Hyperlipidemia Maternal grandmother Thyroid condition Maternal grandmother Paternal grandmother Other Cancer Hypertension Social History Second hand smoke exposure: No Smoking risk assessment/counseling performed?: No Alcohol intake: never Desire information about alcohol rehabilitation?: No Counseling given: No Desire information about substance/drug rehabilitation?: No Counseling given: No Adopted: No Caregiver/support person: Yes Lives independently: No Household members: family Housing: House Marital status: Single Number of children: 0 service: No Current occupational status: disabled History of recent travel: No Sexually active: No Current gender identity: Female Physical Exam Const: COMMON NORMALS: no acute distress, healthy appearing, alert and well nourished EXAM LIMITATIONS: no altered mental status HENMT: COMMON NORMALS: moist oral mucous membranes and oropharynx normal HEAD & SCALP: normal to inspection THROAT: posterior oropharynx normal Eye: COMMON NORMALS: conjunctivae normal CONJUNCTIVA: Yes conjunctivae normal Neck/C-Spine: COMMON NORMALS: full ROM, supple and no meningeal signs Chest: COMMONS NORMALS: normal inspection of the chest Resp: COMMON NORMALS: normal respiratory effort, No retractions, No use of accessory muscles and clear to auscultation bilaterally AUSCULTATION: clear to auscultation bilaterally Cardio: COMMON NORMALS: regular rate, regular rhythm and Peripheral pulses 2+ throughout RATE: regular rate RHYTHM: regular rhythm PERIPHERAL PULSES: Peripheral pulses 2+ throughout GI: COMMON NORMALS: Normal to inspection, nondistended, normoactive bowel sounds present (PEG tube in place), Soft to palpation and non-tender PALPATION: Yes Soft to palpation Extremity: COMMON NORMALS: capillary refill normal and no clubbing, cyanosis or edema Neuro: SENSORIUM/ORIENTATION: Yes alert MENINGEAL SIGNS: Yes no meningeal signs OTHER: Cerebral palsy Psych: COMMON NORMALS: cooperative Skin: COMMON NORMALS: no rashes or lesions noted GENERAL SKIN EXAM: no rashes or lesions noted Course Vital Signs: Vital signs: Vital Signs Temperature 98.7 F 05/25/21 15:38 Pulse Rate 83 05/25/21 15:38 Respiratory Rate 20 H 05/25/21 15:38 Blood Pressure 92/61 05/25/21 15:38 Pulse Oximetry 96 05/25/21 15:38 MDM - URI/Sore Throat Lab Data: Labs: Lab Results 05/25/21 19:30 SARS-CoV-2 Ag (Rap id) Positive H (Negative) Imaging Data^: CXR: Attestation: I personally reviewed and interpreted this imaging study as follows: My impression: Portable chest x-ray shows nothing acute. Discharge Plan Discharge Prescriptions: No Action (DME) [facility] See Rx Instructions .ROUTE .MEDSUPPLY Qty: 1 RF: 0 tizanidine 4 mg tablet 8 mg PO TID 30 Days Qty: 180 RF: 11 baclofen 10 mg tablet 30 mg PO QID Qty: 360 RF: 8 qgblgcoy-iycigwnfe-US 3.5-10,000-1 mg/mL-unit/mL-% drops,suspension 4 drp otic (ear) TID 10 Days Qty: 10 RF: 0 albuterol sulfate [Ventolin HFA] 90 mcg/actuation HFA aerosol inhaler 2 puff INHALATION Q4H PRN (Reason: shortness of breath or wheezing) Qty: 6.7 RF: 2 Flovent HFA 110 mcg/actuation HFA aerosol inhaler 2 puff INHALATION Q12H Qty: 12 RF: 5 hydroxyzine HCl 10 mg/5 mL solution 50 mg PO BEDTIME 30 Days Qty: 750 RF: 5 lactulose 20 gram/30 mL solution 20 g PO BID PRN (Reason: constipation) Qty: 1500 RF: 5 trazodone 50 mg tablet 25 - 50 mg PO BEDTIME Qty: 60 RF: 5 zafirlukast [Accolate] 10 mg tablet 20 mg PO BID Qty: 60 RF: 5 (DME) G-tube See Rx Instructions .Route .MEDSUPPLY Qty: 1 RF: 0 (DME) Hospital bed with full bed rails See Rx Instructions .Route .MEDSUPPLY Qty: 1 RF: 0 albuterol sulfate 2.5 mg /3 mL (0.083 %) solution for nebulization 2.5 mg INHALATION Q6H PRN (Reason: shortness of breath or wheezing) Qty: 75 RF: 5 medroxyprogesterone [Depo-Provera] 150 mg/mL suspension 150 mg IM ONCE Qty: 1 RF: 3 (DME) Bed rail full length See Rx Instructions .Route .MEDSUPPLY Qty: 1 RF: 0 Tegretol 100 mg/5 mL suspension See Rx Instructions PO TID RF: 0 cholecalciferol (vitamin D3) 125 mcg (5,000 unit) capsule 125 mcg PO QAM RF: 0 cetirizine 5 mg/5 mL solution 5 mg PO BEDTIME RF: 0 Coding Level of Care Code ED Medical Office Technology Instructor for Chg Fwd Exam Comprehensive
[2021-05-25 19:54] LABS: SARS Covid-2 Antigen Positive (Negative)
[2021-05-25 20:15] VITALS: BP 94/60; PULSE 84; RESP 20; O2SAT 98
[2021-05-25] MEDS: pred sod phos 15 mg/5 mL Soln 30mL Btl 20 MG PEG-TUBE (20:49)
[2021-05-25 20:54] VITALS: BP 94/60
== END 2021-05-25 20:55 | disposition home or self-care (01) ==
PROVIDERS: Emergency Provider Family Medicine; PCP Nurse Practitioner
DX: U07.1 COVID-19 (principal); G80.0 Spastic quadriplegic cerebral palsy; J45.909 Unspecified asthma, uncomplicated; F79 Unspecified intellectual disabilities
CPT/HCPCS: 71045; 87426; 99283; J7510

== ENCOUNTER 2021-06-03 11:03 | Inpatient (IN) | payer MEDICAID, SELFPAY ==
[2021-06-03] VITALS (8 sets, daily range): BP systolic 110–135; BP diastolic 69–85; PULSE 140–166; RESP 32; TEMP 36.4–37.9; O2SAT 87–94; BMI 28.5
--- NOTE | 2021-06-03 11:30 | XR_ITS ---
WS: [id number] CHEST XRAY TECHNIQUE: Portable chest. CLINICAL INFORMATION: hypoxia COMPARISON: May 25, 2021 FINDINGS: Shallow inspiration. Heart: Cardiomegaly. Lungs: Mild perihilar interstitial infiltrates with interstitial thickening. No focal pneumonia or pl eural fluid. Colonic interposition under the right hemidiaphragm. Elevation right hemidiaphragm. Bones: Normal visualized bony structures. XR/XR chest 1V portable [id number] IMPRESSION: 1. Shallow inspiration with chronic elevation right hemidiaphragm appears unch anged. 2. Cardiomegaly. 3. Mild bilateral perihilar interstitial thickening can be seen with bronchiti s. 4. No focal pneumonia or pleural fluid.
[2021-06-03 13:05] LABS: ABG PCO2 30.7 mmHg (35-45); ABG PH Result 7.48 (7.35-7.45); Arterial Blood Gas Hematocrit 41.8 % (37-47); Base Excess ABG 0.4 mmol/L (-2.0-2.0); Blood Gas Allen Test Pos; Blood Gas Operator Identificat WALCI; Blood Gas Sample Site Radial, right; Blood Gas Sample Type Arterial; HCO3 ABG 23.1 mmol/L (22-26); Oxygen Device NC; PO2 ABG 55.4 mmHg (80.0-100.0)
--- NOTE | 2021-06-03 13:23 | CTR_ITS ---
PROCEDURE INFORMATION: Exam: CTA Chest With Contrast Exam date and time: 06/03/2021 1:23 PM Age: 20 years old Clinical indication: Shortness of breath; Patient HX: SOB - low 02 sats; Additional info: Hypoxia TECHNIQUE: Imaging protocol: Computed tomographic angiography of the chest with contrast. 3D rendering (Not supervised by radiologist): MIP and/or 3D reconstructed images were created by the technologist. Radiation optimization: All CT scans at this facility use at least one of these dose optimization techniques: automated exposure control; mA and/or kV adjustment per patient size (includes targeted exams where dose is matched to clinical indication); or iterative reconstruction. Contrast material: OMNI 350; Contrast volume: 68 ml; Contrast route: INTRAVENOUS (IV); COMPARISON: CR XR chest 1V portable [id number] 06/03/2021 12:41 PM RADIATION DOSE METRICS: Total DLP (mGy-cm): 510.1 FINDINGS: Pulmonary arteries: Multiple filling defects within the bilateral pulmonary artery branches including the main right and left pulmonary arteries. Saddle embolus crosses the midline. Aorta: Unremarkable. No aortic aneurysm. No aortic dissection. Lungs: Shallow inspiration with parenchymal crowding. Dependent atelectasis in the left lung and right lower lobe. Pleural spaces: Unremarkable. No pneumothorax. No pleural effusion. Heart: The RV/LV ratio is 1.3, consistent with elevated right heart pressure. Lymph nodes: Unremarkable. No enlarged lymph nodes. Diaphragm: Elevation of the right diaphragm. Bones/joints: Unremarkable. No acute fracture. Soft tissues: Unremarkable. CT/CT angio chest PE protcl [id number] IMPRESSION: 1. Extensive bilateral pulmonary emboli with a saddle embolus. 2. Elevated right heart pressure, with an RV/LV ratio greater than 1.
[2021-06-03 13:45] LABS: Basophils % 0.2 %; Eosinophils % 0.1 %; Hematocrit 43.5 % (37.0-47.0); Hemoglobin 13.6 g/dL (11.5-15.3); Lymphocytes # 2.1 10^3/uL (0.8-4.8); Lymphocytes % 13.7 %; Mean Corpuscular HGB Conc 31.3 g/dL (30.0-36.0); Mean Corpuscular Hemoglobin 27.1 pg (28.0-34.0); Mean Corpuscular Volume 86.8 fl (81-99); Mean Platelet Volume 9.5 fL (7.4-10.4); Monocytes # 1.8 10^3/uL (0.2-0.9); Monocytes % 11.7 %; Neutrophils # 11.52 10^3/uL (1.8-7.7); Neutrophils % 73.9 %; Nucleated Red Blood Cells % 0 %; Platelet Count 332 10^3/cmm (130-400); Red Blood Count 5.01 10^6/uL (4.1-5.3); Red Cell Distribution Width 13.3 % (12.1-15.1); White Blood Count 15.6 10^3/uL (4.0-10.0)
--- NOTE | 2021-06-03 13:45 | W.ED.COVID ---
HPI - COVID General: Chief Complaint: COVID symptoms Stated Complaint: PCP SENT FOR LOW SATS AND SOB, CONGESTION Time Seen by Provider: 06/03/21 12:07 Triage information: Has fever, cough or shortness of breath. Exposure to COVID + person last 14 days History of Present Illness: HPI Narrative: 20-year-old female with significant developmental delay and intellectual disability presents to the emergency room with oxygen saturations at 87% on room air. She is now requiring 2 L by nasal cannula.She tested positive on 116. She was given some steroids which she has completed mother reports is related at last visit but I do not see that on the discharge notes from May 25. She does have a rough coating to her tongue buccal mucosa today when seen she is doing a lot of mouth breathing nonproductive cough. She is requiring 2 L by nasal cannula to maintain her oxygen sats in the mid 90s she is 87% on room air. She is also complaining of abscess in the perineal area. MD complaint: known COVID positive Prior covid testing: yes, results known Prior testing date: 05/25/21 COVID 19 common symptoms: positive fever(s), chills, cough, non-productive cough and dyspnea COVID 19 other sytmptoms: positive requiring oxygen Onset (ago): day(s) (10) Severity: moderate Pertinent comorbid conditions: other (Cerebral palsy/autism) Treatment prior to arrival: steroids COVID Results: SARS-CoV-2 Antigen (Rapid) Positive (Negative) H 05/25/21 19:30 05/25/21 Review of Systems General: Reports: Other (Limited due to patient's condition completed per parents.) Const: Reports: fever(s) and chills Resp: Reports: dyspnea and non-productive cough PFS ED PFSH: Medical History Asthma due to environmental allergies Constipation G tube feedings Insomnia Overweight (BMI 25.0-29.9) Seasonal allergic rhinitis Spastic quadriplegic cerebral palsy Unspecified intellectual disabilities Urine incontinence Vitamin D deficiency Surgical History History of open reduction and internal fixation (ORIF) procedure Left femur at [facility] 02/28/21 History of tonsillectomy and adenoidectomy 2002 Hx of myringotomy 2002 Status post open reduction and internal fixation (ORIF) of fracture Family History Grandfather Diabetes Paternal grandfather Maternal grandfather Heart disease Maternal grandmother Mother Diabetes Hyperlipidemia Thyroid condition Grandmother Diabetes Paternal grandmother Maternal grandmother Hyperlipidemia Maternal grandmother Thyroid condition Maternal grandmother Paternal grandmother Other Cancer Hypertension Social History Second hand smoke exposure: No Smoking risk assessment/counseling performed?: No Alcohol intake: never Desire information about alcohol rehabilitation?: No Counseling given: No Desire information about substance/drug rehabilitation?: No Counseling given: No Adopted: No Caregiver/support person: Yes Lives independently: No Household members: family Housing: House Marital status: Single Number of children: 0 service: No Current occupational status: disabled History of recent travel: No Sexually active: No Current gender identity: Female Physical Exam Const: ORIENTATION/CONSCIOUSNESS: Yes awake HENMT: COMMON NORMALS: normocephalic and atraumatic HEAD & SCALP: normocephalic and atraumatic OTHER: Oral mucosa is white-mays coating consistent with oral candidiasis. Resp: EFFORT & INSPECTION: Yes respiratory distress, Yes Actively coughing and Yes uses accessory muscles AUSCULTATION: wheezes and diminished lung sounds Cardio: RATE: tachycardic GI: COMMON NORMALS: Soft to palpation and No hepatosplenomegaly present AUSCULTATION: Yes normoactive bowel sounds PALPATION: Yes Soft to palpation, No Tenderness to palpation present (GI), No Guarding due to palpation present (GI) and Yes No hepatosplenomegaly present Extremity: COMMON NORMALS: normal to inspection, capillary refill normal, no clubbing, cyanosis or edema, no calf tenderness and no pedal edema Skin: COMMON NORMALS: no rashes or lesions noted GENERAL SKIN EXAM: no rashes or lesions noted Course Vital Signs: Vital signs: Vital Signs Temperature 100.3 F H 06/03/21 20:30 Pulse Rate 108 H 06/04/21 06:00 Respiratory Rate 44 H 06/04/21 06:00 Blood Pressure 104/63 06/04/21 06:00 Pulse Oximetry 99 06/04/21 06:00 MDM - COVID MDM Narrative Medical decision making narrative: Patient critically ill in acute respiratory distress with hypoxia on arrival. In addition that she is very tachycardic. Difficult case because of her underlying chronic medical issues of cerebral palsy and autism she really cannot contribute much I am very concerned she has a PE. Difficult time attaining access. Care turned over to Dr. Winchester at change of shift awaiting CTA of the chest. She is on heated high flow which has improved her oxygenation she remains tachycardic see Dr. Winchester note for final diagnosis and disposition. Differential Diagnosis Differential diagnosis: Likely COVID 19, other viral infection, pneumonia and pulmonary embolism Medical Records Attestation: I reviewed the patient's medical records. Lab Data Attestation: I reviewed the patient's lab results. Result diagrams: 06/04/21 03:02 06/04/21 03:02 Labs: Radiology Impressions Chest X-Ray 06/03/21 11:30 IMPRESSION: 1. Shallow inspiration with chronic elevation right hemidiaphragm appears unchanged. 2. Cardiomegaly. 3. Mild bilateral perihilar interstitial thickening can be seen with bronchitis. 4. No focal pneumonia or pleural fluid. Chest CTA 06/03/21 13:23 IMPRESSION: 1. Extensive bilateral pulmonary emboli with a saddle embolus. 2. Elevated right heart pressure, with an RV/LV ratio greater than 1. ADDENDUM: 06/03/21 1831 THIS REPORT CONTAINS FINDINGS THAT MAY BE CRITICAL TO PATIENT CARE. The findings were verbally communicated via telephone conference with Dr. Oneil at 6:31 PM STORY READER on 06/03/2021. The findings were acknowledged and understood. Laboratory Results WBC 15.6 10^3/uL (4.0-10.0) H 06/03/21 13:33 RBC 5.01 10^6/uL (4.1-5.3) 06/03/21 13:33 Hgb 13.6 g/dL (11.5-15.3) 06/03/21 13:33 Hct 43.5 % (37.0-47.0) 06/03/21 13:33 MCV 86.8 fl (81-99) 06/03/21 13:33 MCH 27.1 pg (28.0-34.0) L 06/03/21 13:33 MCHC 31.3 g/dL (30.0-36.0) 06/03/21 13:33 RDW 13.3 % (12.1-15.1) 06/03/21 13:33 Plt Count 332 10^3/cmm (130-400) 06/03/21 13:33 MPV 9.5 fL (7.4-10.4) 06/03/21 13:33 Neut % (Auto) 73.9 % 06/03/21 13:33 Lymph % (Auto) 13.7 % 06/03/21 13:33 [place] % (Auto) 11.7 % 06/03/21 13:33 Eos % (Auto) 0.1 % 06/03/21 13:33 Baso % (Auto) 0.2 % 06/03/21 13:33 Neut # (Auto) 11.52 10^3/uL (1.8-7.7) H 06/03/21 13:33 Lymph # (Auto) 2.1 10^3/uL (0.8-4.8) 06/03/21 13:33 [place] # (Auto) 1.8 10^3/uL (0.2-0.9) H 06/03/21 13:33 Eos # (Auto) 0.0 10^3/uL (0.0-0.8) 06/03/21 13:33 Baso # (Auto) 0.0 10^3/uL (0.0-0.1) 06/03/21 13:33 Nucleated RBC % (auto) 0 % 06/03/21 13:33 Nucleated RBCs # 0.0 /100WBC 06/03/21 13:33 Specimen Type Arterial 06/03/21 12:55 Sample Site Radial, right 06/03/21 12:55 ABG pH 7.48 (7.35-7.45) H 06/03/21 12:55 ABG pCO2 30.7 mmHg (35-45) L 06/03/21 12:55 ABG pO2 55.4 mmHg (80.0-100.0) L 06/03/21 12:55 ABG HCO3 23.1 mmol/L (22-26) 06/03/21 12:55 ABG Base Excess 0.4 mmol/L (-2.0-2.0) 06/03/21 12:55 Harjeet Test Pos 06/03/21 12:55 Hematocrit 41.8 % (37-47) 06/03/21 12:55 O2 Delivery Device Nc 06/03/21 12:55 O2 Liters/Min 1.0 % 06/03/21 12:55 Gang Supervisor P[employer] ID Dion 06/03/21 12:55 Sodium 138 mmol/L (136-145) 06/03/21 12:50 Potassium 4.2 mmol/L (3.5-5.1) 06/03/21 12:50 Chloride 101 mmol/L (98-107) 06/03/21 12:50 Carbon Dioxide 21 mmol/L (22-29) L 06/03/21 12:50 Anion Gap 20.2 (5-19) H 06/03/21 12:50 BUN 18 mg/dL (6-20) 06/03/21 12:50 Creatinine 0.3 mg/dL (0.5-0.9) L 06/03/21 12:50 GFR Calculation 278.2 mL/min (90-130) H 06/03/21 12:50 Glucose 148 mg/dL (65-115) H 06/03/21 12:50 Calculated Osmolality 291 mOsm/kg (285-295) 06/03/21 12:50 Calcium 8.8 mg/dL (8.5-10.5) 06/03/21 12:50 Ferritin 225 ng/mL (15-150) H 06/03/21 12:50 Total Bilirubin 0.3 mg/dL (0.15-1.2) 06/03/21 12:50 AST 17 U/L (0-32) 06/03/21 12:50 ALT 16 U/L (0-33) 06/03/21 12:50 Alkaline Phosphatase 171 IU/L (35-105) H 06/03/21 12:50 Troponin T Baseline 63 ng/L (0-10) H 06/03/21 19:00 C-Reactive Protein 299.8 mg/L (0.0-4.9) H 06/03/21 12:50 NT-Pro-B Natriuret Pep 86846 pg/mL (0-125) H 06/03/21 12:50 NT-Pro-B Natriuret Pep Cancelled 06/03/21 12:50 Total Protein 7.3 g/dL (6.6-8.7) 06/03/21 12:50 Albumin 3.8 g/dL (3.5-5.2) 06/03/21 12:50 Globulin 3.5 g/dL (1.3-4.6) 06/03/21 12:50 Procalcitonin 0.19 ng/mL (0-0.5) 06/03/21 12:50 Procalcitonin Cancelled 06/03/21 12:50 Carbamazepine 10.7 ug/mL (4.0-12.0) 06/03/21 12:50 COVID Results: SARS-CoV-2 Antigen (Rapid) Positive (Negative) H 05/25/21 19:30 05/25/21 Critical Care Time Critical Care Time: Critical Care Time: Yes Total Critical Care Time: 35 Attestation: The high probability of a clinically significant, sudden or life threatening deterioration of the patient's respiratory system(s) required my full and direct attention, intervention and personal management. The critical care time is as shown. This time is in addition to time spent performing any reported procedures but includes the following: [x] Data and vital sign review and interpretation [x] Patient assessment, examination and intervention [x] Documentation [x] Medication orders and management Discharge Plan Discharge Patient Disposition: Admitted As Inpatient Admit Provider: Benny Ordonez Clinical Impression: Pulmonary embolism Condition: Stable Coding Level of Care Code ED Optimization Analyst for Tobias Ayon
[2021-06-03 14:22] LABS: Alanine Aminotransferase 16 U/L (0-33); Albumin Level 3.8 g/dL (3.5-5.2); Alkaline Phosphatase 171 IU/L (35-105); Anion Gap 20.2 (5-19); Aspartate Amino Transferase 17 U/L (0-32); Blood Urea Nitrogen 18 mg/dL (6-20); C Reactive Protein 299.8 mg/L (0.0-4.9); Calcium 8.8 mg/dL (8.5-10.5); Carbon Dioxide 21 mmol/L (22-29); Chloride 101 mmol/L (98-107); Globulin 3.5 g/dL (1.3-4.6); Glomerular Filtration Rate 278.2 mL/min (90-130); Glucose 148 mg/dL (65-115); Osmolality Calculated 291 mOsm/kg (285-295); Potassium 4.2 mmol/L (3.5-5.1); Sodium 138 mmol/L (136-145); Total Bilirubin 0.3 mg/dL (0.15-1.2); Total Protein 7.3 g/dL (6.6-8.7)
[2021-06-03 14:37] LABS: Ferritin 225 ng/mL (15-150)
[2021-06-03 14:50] LABS: Procalcitonin 0.19 ng/mL (0-0.5)
[2021-06-03] MEDS: iohexol 350 mg/mL 100 mL Btl IV (17:42)
--- NOTE | 2021-06-03 17:48 | PM.HP ---
Providers/Chief Complaint Primary Care Provider: KODY Chacon Chief Complaint: PCP SENT FOR LOW SATS AND SOB, CONGESTION History of Present Illness Estephanie Choi is a 20 year old female presenting to the emergency department with shortness of breath. She tested positive for Covid on May 25. Since that time she has had chilling, coughing, shortness of breath. She does not vomit, as she has had a fundoplication and Niesen done. She has had no blood in her stool, or black or tarry stools. Family is also worried as she has some whitish thrush in her mouth, as she was taking steroids. She also had some antibiotics prescribed but these have since been completed. Review of Systems Narrative: Difficult as patient is nonverbal. Discussed with mother. Note that she is incontinent of urine. Const: Denies: fever(s) Eyes: Denies: change in vision Card: Denies: chest pain Resp: Reports: dyspnea GI: Denies: abdominal pain : Denies: flank pain Musc: Denies: neck pain Skin/Breast: Denies: rash Neuro: Denies: headache(s) Psych: Denies: anxiety or depression Endo: Denies: polyuria [place]/Lymph: Denies: easy bruising All/Imm: Denies: urticaria Medications/Allergies Home Medications Medication Instructions Recorded Confirmed Last Taken Type inhalat.spacing dev,med. mask #1 each 05/24/19 05/19/21 Unknown Rx ([facility]) [facility] bed with full bed rails #1 ea 08/01/20 05/19/21 Unknown Rx albuterol sulfate 2.5 mg (3 mL) INHALATION Q6H PRN 10/04/20 05/19/21 Unknown Rx #75 ml baclofen 10 mg tablet 30 mg PO QID #360 tab 11/25/20 05/19/21 02/27/21 12:00 Rx tizanidine 4 mg tablet 8 mg PO TID 30 Days #180 tab 11/25/20 05/19/21 02/27/21 12:00 Rx G-tube #1 ea 12/14/20 05/19/21 Unknown Rx cetirizine 5 mg/5 mL oral solution 5 mg PO BEDTIME 02/27/21 05/19/21 02/26/21 History cholecalciferol (vitamin D3) 125 125 mcg PO QAM 02/27/21 05/19/21 02/27/21 History mcg (5,000 unit) capsule medroxyprogesterone 150 mg/mL 150 mg IM ONCE #1 ml 03/05/21 05/19/21 Unknown Rx intramuscular suspension (Depo-Provera) Bed rail full length #1 ea 03/07/21 05/19/21 Unknown Rx albuterol sulfate 90 mcg/actuation 2 puff INHALATION Q4H PRN #6.7 gm 05/19/21 05/19/21 Unknown Rx aerosol inhaler (Ventolin HFA) fluticasone propionate 110 2 puff INHALATION Q12H #12 gm 05/19/21 05/19/21 Unknown Rx mcg/actuation HFA aerosol inhaler (Flovent HFA) hydroxyzine HCl 10 mg/5 mL oral 50 mg (25 mL) PO BEDTIME 30 Days 05/19/21 05/19/21 Unknown Rx solution #750 ml lactulose 20 gram/30 mL oral 20 g (30 mL) PO BID PRN #1500 ml 05/19/21 05/19/21 Unknown Rx solution qzskdsai-xqvtabugb-ldhdilliq 3.5 4 drp OTIC (EAR) TID 10 Days #10 ml 05/19/21 05/19/21 Unknown Rx mg-10,000 unit/mL-1 % ear drops,susp trazodone 50 mg tablet 25 - 50 mg PO BEDTIME #60 tab 05/19/21 05/19/21 Unknown Rx zafirlukast 10 mg tablet (Accolate) 20 mg PO BID #60 tab 05/19/21 05/19/21 Unknown Rx Tegretol 100 mg/5 mL oral See Rx Instructions .ROUTE 05/30/21 Unknown Rx suspension (carbamazepine) .COMPLEX #450 milliliter NS Allergies Allergy/AdvReac Type Severity Reaction Status Date / Time azithromycin [From Zithromax] Allergy Unknown Verified 06/03/21 11:08 cephalexin [From Keflex] Allergy Unknown Verified 06/03/21 11:08 ibuprofen Allergy ADR-Gastrointestinal Verified 06/03/21 11:08 Upset lactose Allergy Unknown Verified 06/03/21 11:08 levofloxacin [From Levaquin] Allergy ALGY-Rash Verified 06/03/21 11:08 Penicillins Allergy Unknown Verified 06/03/21 11:08 pineapple Allergy Unknown Verified 06/03/21 11:08 Sulfa (Sulfonamide Allergy ALGY-Rash Verified 06/03/21 11:08 Antibiotics) PFSH Acute PFSH: Medical History Asthma due to environmental allergies Constipation G tube feedings Insomnia Overweight (BMI 25.0-29.9) Seasonal allergic rhinitis Spastic quadriplegic cerebral palsy Unspecified intellectual disabilities Urine incontinence Vitamin D deficiency Surgical History History of open reduction and internal fixation (ORIF) procedure Left femur at [facility] 02/28/21 History of tonsillectomy and adenoidectomy 2001 Hx of myringotomy 2002 Status post open reduction and internal fixation (ORIF) of fracture Family History Grandfather Diabetes Paternal grandfather Maternal grandfather Heart disease Maternal grandmother Mother Diabetes Hyperlipidemia Thyroid condition Grandmother Diabetes Paternal grandmother Maternal grandmother Hyperlipidemia Maternal grandmother Thyroid condition Maternal grandmother Paternal grandmother Other Cancer Hypertension Social History Second hand smoke exposure: No Smoking risk assessment/counseling performed?: No Alcohol intake: never Desire information about alcohol rehabilitation?: No Counseling given: No Desire information about substance/drug rehabilitation?: No Counseling given: No Adopted: No Caregiver/support person: Yes Lives independently: No Household members: family Housing: House Marital status: Single Number of children: 0 service: No Current occupational status: disabled History of recent travel: No Sexually active: No Current gender identity: Female Vitals/I&O/Wt Last Vital Signs Temp 97.6 F 06/03/21 11:08 Pulse 148 H 06/03/21 17:05 Resp 32 H 06/03/21 11:08 BP 115/76 06/03/21 17:05 Pulse Ox 93 06/03/21 17:05 Weight last 48 hrs Weight 70.76 kg Physical Exam Narrative: EXAM NARRATIVE: General exam is a female, who maintains good eye contact. She is nonverbal, but can grunt. I do not believe these are meaningful responses other than to indicate agitation or discomfort. It is difficult to get anything that would resemble yes or no. HEENT: Pupils equally round. Oropharynx with some whitish exudate consistent with thrush Neck is supple no lymphadenopathy or thyromegaly Cardiovascular tachycardic, no murmur Lungs coarse bilaterally Abdomen is soft with positive bowel sounds. PEG tube noted. No skin breakdown. deferred Extremities no cyanosis clubbing or edema, atrophy noted lower extremities. Neurologic: Moves all extremities Skin no rash Data : 06/03/21 13:33 06/03/21 12:50 Other Labs: Chest x-ray right hemidiaphragm elevation, possible cardiomegaly but poor inspiration. Cannot rule out pneumonia. Perihilar infiltrates are noted. ABG demonstrates a pH of 7.48, PCO2 31, PO2 55 on 1 L. Calcium 8.8, LFTs normal with the exception of alk phos of 171, CRP 300, procalcitonin 0.19 A&P Assessment and plan (1) COVID-19 virus infection: Significant Covid 19 pneumonia, associated with hypoxic respiratory failure. Had significant respiratory distress and accessory muscle use on admission with hypoxia requiring oxygen. She is currently on 4 L. Heart rate is greater than 30. Remdesivir, dexamethasone, baricitinib. Note that CRP is markedly elevated. Pulmonary toilet Oxygen as needed Doxycycline empirically Sputum culture Some element of dehydration with tachycardia in the emergency department. 1 bolus of 500 cc Status: Acute (2) Thrush: Initiate fluconazole Status: Acute (3) Partial epilepsy secondarily generalized: Continue Tegretol. Check level Status: Chronic (4) Asthma due to environmental allergies: Continue home medications Pulmonary toilet Status: Chronic (5) Spastic quadriplegic cerebral palsy: Significant baseline deficits.. Nonambulator Continue chronic medications, muscle relaxers Continue tube feeds as they are doing at home. Status: Chronic Plan Full code Lovenox for DVT prophylaxis Attestations Medical Necessity Statement*: Will require greater than 2 midnight stay for evaluation and treatment of Covid 19 pneumonia Time Spent in Patient Care: Greater than 35 minutes Coding Level of Care Code Acute Finish Repairer for [facility] Diagnoses COVID-19 virus infection U07.1 Thrush B37.0 Partial epilepsy secondarily generalized Asthma due to environmental allergies J45.909 Spastic quadriplegic cerebral palsy G80.0
--- NOTE | 2021-06-03 18:31 | ECG_ITS ---
[facility] Test Date: 2021-06-03 Pat Name: Estephanie Choi Department: Room: Gender: Female Manager Process Excellence: : 2000 Requested By: Geovanna Winchester Order Number: [id number] Gordon MD: Kaylen Menon M.D. Measurements Intervals [place] Rate: 154 P: 60 VA: 126 QRS: -11 QRSD: 90 T: 32 QT: 251 QTc: 402 Interpretive Statements SINUS TACHYCARDIA, POSSIBLE ATRIAL FLUTTER LOW QRS VOLTAGE IN PRECORDIAL LEADS [QRS DEFLECTION < 1.0 mV IN CHEST LEADS] POSSIBLE RIGHT VENTRICULAR CONDUCTION DELAY [RSR (QR) IN V1/V2] ANTERIOR MYOCARDIAL INFARCTION , PROBABLY RECENT Compared to ECG 12/28/2020 22:40:08 Low QRS voltage now present ST (T wave) deviation now present Myocardial infarct finding still present Electronically Signed On 06-03-2021 21:40:25 NUCLEAR MEDICINE OFFICER by Kaylen Menon M.D. [email or web address]
[2021-06-03 18:35] LABS: Carbamazepine Tegretol 10.7 ug/mL (4.0-12.0)
[2021-06-03] MEDS: heparin 5,000 unit/mL INJ 1 mL IV (18:42)
[2021-06-03 18:56] LABS: NT Pro B Type Natriuretic Pept 11333 pg/mL (0-125)
[2021-06-03] MEDS: heparin drip 25,000 UNIT/500 ML PREMIX 20 UNIT IV (19:10)
[2021-06-03] MEDS: sodium chloride 0.9% 500 ML 999 ML IV (20:01)
[2021-06-03 20:07] LABS: Troponin(5th) Baseline 63 ng/L (0-10)
[2021-06-03] MEDS: doxycycline 100 MG in sodium chloride 0.9% (plus) 100 ML IV (20:42)
--- NOTE | 2021-06-03 20:47 | PC.NURSE ---
5- New iv started 22g left hand with no issues. patient tolerated procedure well. patient lying in bed with tachypnic breathing noted at 32-34 bpm noted. patient on NC @ 4 LPM. patient with noted dry mucosal membrane upon assessment. Lung sounds diminished throughout with shallow tachypnic breaths noted. Patinet covid positive. motehr states shes just been getting with her breathing and running a fever. patient on engine monitor. Heart sound strong and tachycardic at 141 bpm. Bowel sounds present. Peg tube noted to right sided abdomen. No drainage noted from site. Skin hot and dry. Patient with heparin infusing into 18 g R upper arm. MOther at bedside. Call light within reach.
--- NOTE | 2021-06-03 21:33 | PM.CONSULT ---
Providers/Reason For Consult Consulting Physician/Specialty*: Interventional cardiology Reason for Consult*: Saddle pulmonary embolus hypoxia RV strain Requesting Physician: Everardo Fuentes and Dr. Rojas Attending Physician: Benny Ordonez MD Primary Care Provider: KODY Chacon History of Present Illness History of Present Illness Estephanie Choi is a 20 year old female presented with who contracted Covid past medical history significant for congenital abnormality onychodystrophy history of atelectasis being bedbound spastic quadriplegia with cerebral palsy was diagnosed with Covid on 16 of this month. Since then she has been coughing and short of breath. Today she presented with hypoxia, CT angio confirmed extensive bilateral pulmonary and saddle emboli. Since she is getting worse hypoxia reece we have been asked to assist in her care. Discussed the treatment with her mother by bedside. I have explained in detail all risk benefit and alternative for the procedure. Explained risk for anesthesia risk for deterioration intubation arrhythmia vascular damage bleeding major minor pulmonary artery perforation and rupture leading to . Since patient is deteriorating and because of the fact she has worsening of hypoxia we are all are in agreement of proceeding with thrombectomy. We have asked for assistance from our anesthesia colleague. Further plan will be advised as per progress of the patient. Medications/Allergies Home Medications Medication Instructions Recorded Confirmed Last Taken Type inhalat.spacing dev,med. mask #1 each 05/24/19 05/19/21 Unknown Rx ([facility]) [facility] bed with full bed rails #1 ea 08/01/20 05/19/21 Unknown Rx albuterol sulfate 2.5 mg (3 mL) INHALATION Q6H PRN 10/04/20 05/19/21 Unknown Rx #75 ml baclofen 10 mg tablet 30 mg PO QID #360 tab 11/25/20 05/19/21 02/27/21 12:00 Rx tizanidine 4 mg tablet 8 mg PO TID 30 Days #180 tab 11/25/20 05/19/21 02/27/21 12:00 Rx G-tube #1 ea 12/14/20 05/19/21 Unknown Rx cetirizine 5 mg/5 mL oral solution 5 mg PO BEDTIME 02/27/21 05/19/21 02/26/21 History cholecalciferol (vitamin D3) 125 125 mcg PO QAM 02/27/21 05/19/21 02/27/21 History mcg (5,000 unit) capsule medroxyprogesterone 150 mg/mL 150 mg IM ONCE #1 ml 03/05/21 05/19/21 Unknown Rx intramuscular suspension (Depo-Provera) Bed rail full length #1 ea 03/07/21 05/19/21 Unknown Rx albuterol sulfate 90 mcg/actuation 2 puff INHALATION Q4H PRN #6.7 gm 05/19/21 05/19/21 Unknown Rx aerosol inhaler (Ventolin HFA) fluticasone propionate 110 2 puff INHALATION Q12H #12 gm 05/19/21 05/19/21 Unknown Rx mcg/actuation HFA aerosol inhaler (Flovent HFA) hydroxyzine HCl 10 mg/5 mL oral 50 mg (25 mL) PO BEDTIME 30 Days 05/19/21 05/19/21 Unknown Rx solution #750 ml lactulose 20 gram/30 mL oral 20 g (30 mL) PO BID PRN #1500 ml 05/19/21 05/19/21 Unknown Rx solution ujcwycct-rpofvsvbh-drhpticau 3.5 4 drp OTIC (EAR) TID 10 Days #10 ml 05/19/21 05/19/21 Unknown Rx mg-10,000 unit/mL-1 % ear drops,susp trazodone 50 mg tablet 25 - 50 mg PO BEDTIME #60 tab 05/19/21 05/19/21 Unknown Rx zafirlukast 10 mg tablet (Accolate) 20 mg PO BID #60 tab 05/19/21 05/19/21 Unknown Rx Tegretol 100 mg/5 mL oral See Rx Instructions .ROUTE 05/30/21 Unknown Rx suspension (carbamazepine) .COMPLEX #450 milliliter NS Allergies Allergy/AdvReac Type Severity Reaction Status Date / Time azithromycin [From Zithromax] Allergy Unknown Verified 06/03/21 11:08 cephalexin [From Keflex] Allergy Unknown Verified 06/03/21 11:08 ibuprofen Allergy ADR-Gastrointestinal Verified 06/03/21 11:08 Upset lactose Allergy Unknown Verified 06/03/21 11:08 levofloxacin [From Levaquin] Allergy ALGY-Rash Verified 06/03/21 11:08 Penicillins Allergy Unknown Verified 06/03/21 11:08 pineapple Allergy Unknown Verified 06/03/21 11:08 Sulfa (Sulfonamide Allergy ALGY-Rash Verified 06/03/21 11:08 Antibiotics) Current Medications Generic Name Dose Route Start Last Admin Trade Name Freq PRN Reason Stop Dose Admin Heparin Sodium (Porcine) 0 unit 06/03/21 18:30 06/03/21 18:42 Heparin 5,000 Unit/Ml Inj 1 Ml IV 3,500 unit PRN PRN Administration Heparin weight-base protocol Protocol Heparin Sodium/Sodium Chloride 25,000 unit in 500 mls @ 0 mls/hr 06/03/21 18:30 06/03/21 19:10 Heparin Drip IV 14.13 unit/kg/hr .Q0M ESTHELA 20 mls/hr Administration Protocol Per Protocol PFSH Acute PFSH: Medical History Asthma due to environmental allergies Constipation G tube feedings Insomnia Overweight (BMI 25.0-29.9) Seasonal allergic rhinitis Spastic quadriplegic cerebral palsy Unspecified intellectual disabilities Urine incontinence Vitamin D deficiency Surgical History History of open reduction and internal fixation (ORIF) procedure Left femur at [facility] 02/28/21 History of tonsillectomy and adenoidectomy 2001 Hx of myringotomy 2001 Status post open reduction and internal fixation (ORIF) of fracture Family History Grandfather Diabetes Paternal grandfather Maternal grandfather Heart disease Maternal grandmother Mother Diabetes Hyperlipidemia Thyroid condition Grandmother Diabetes Paternal grandmother Maternal grandmother Hyperlipidemia Maternal grandmother Thyroid condition Maternal grandmother Paternal grandmother Other Cancer Hypertension Social History Second hand smoke exposure: No Smoking risk assessment/counseling performed?: No Alcohol intake: never Desire information about alcohol rehabilitation?: No Counseling given: No Desire information about substance/drug rehabilitation?: No Counseling given: No Adopted: No Caregiver/support person: Yes Lives independently: No Household members: family Housing: House Marital status: Single Number of children: 0 service: No Current occupational status: disabled History of recent travel: No Sexually active: No Current gender identity: Female Vitals/I&O/Wt Last Vital Signs Temp 100.3 F H 06/03/21 20:30 Pulse 141 H 06/03/21 20:30 Resp 32 H 06/03/21 20:30 BP 135/85 06/03/21 20:30 Pulse Ox 93 06/03/21 20:30 Weight last 48 hrs Weight 156 lb Physical Exam Resp: OTHER: GENERAL: Patient is awake moaning groaning NECK: Short thick HEART: Regular S1 and S2. No murmur, rub or gallop. [] LUNGS: Decreased breath sounds bilateral EXTREMITIES: Contracture Data : 06/03/21 13:33 06/03/21 12:50 Micro: Microbiology 06/03/21 19:00 Blood Culture - Preliminary Blood SPECIMEN COLLECTED 06/03/21 16:00 Blood Culture - Preliminary Blood SPECIMEN COLLECTED A&P Assessment and plan (1) COVID-19 virus infection: As per medicine. Status: Acute (2) Autism: Status: Chronic (3) Spastic quadriplegic cerebral palsy: Status: Chronic (4) Pulmonary embolism associated with COVID-19: Due to high burden of pulmonary embolism with saddle emboli right heart strain worsening of hypoxia we will proceed with pulmonary embolic thrombectomy. Further plan will be devised as per progress of the patient. Status: Acute Consult Attestations Medical Necessity Statement: I am expecting her stay to cross more than 2 midnights Coding Level of Care Code New Pt Acute Account Support Specialist for [place] Fwd Patient Type New History Comprehensive Exam Comprehensive Medical Decision Making High Complexity Diagnoses COVID-19 virus infection U07.1 Autism F84.0 Spastic quadriplegic cerebral palsy G80.0 Pulmonary embolism associated with COVID-19 U07.1; I26.99
--- NOTE | 2021-06-03 21:44 | W.PM.OPSUD ---
Surgery/Procedure H&P Update DATE OF PROCEDURE: June 03, 2021 DATE H&P PERFORMED: 06/03/21 PRIMARY INDICATION FOR PROCEDURE: Saddle pulmonary embolus PLANNED PROCEDURE: Pulmonary embolic thrombectomy
--- NOTE | 2021-06-03 21:45 | PC.NURSE ---
Appointment Scheduler personnel here to transport patient. patient in no obivous distress. Patient transported via stretcher on 2.5 Lpm.
--- NOTE | 2021-06-03 21:49 | XACV_ITS ---
Exam Room: 2 Ht: 157 cm Wt: 71 kg BSA: 1.78 m2 Gender: Female : 2000 Exam Priority: Routine Procedure(s): Procedure Description: Diagnostic procedure Procedure Description: Peripheral Cath Diagnostic Procedure Procedure Description: Pulmonic Angiography Procedure Description: Peripheral vascular Intervention Procedure Description: Miscellaneous Procedure Description: Perclose Procedure Description: ACT Procedure Description: PV Thrombectomy Diagnostic Cath Status: Urgent Diagnostic Findings * No disease noted in the Left Main, Left Anterior Descending, Right, or Circumflex coronary arteries. * Coronary angiography shows right dominance. PCI Status: Urgent Conclusions Indication for pulmonary embolism thrombectomy: in stability of the patient with saddle emboli in the main pulmonary artery distal and multiple pulmonary embolus . Through right common femoral approach using pigtail pulmonary angiogram was performed, which identified pulmonary vessels and pulmonary embolism. 14 Turkmen sheath was placed through which penumbra catheter was introduced in main pulmonary arterial trunk. Saddle embolus were then sucked out of the main pulmonary vessels. Right and left pulmonary vessel was then treated with pnumbra suction catheter. Multiple large and small clots were extracted. Pulmonary pressure improved, systolic right ventricle pressure was noted to be below 40mmHg. At this point we concluded the procedure which remained successful. Right common femoral vein hemostasis was achieved after withdrawing the catheter and sheath along with wires. Patient was transferred to ICU in a stable condition. . No disease noted in the Left Main, Left Anterior Descending, Right, or Circumflex coronary arteries. Recommendations Usual post cath care. Continue IV heparin for pulmonary embolism. Switch to Lovenox in the morning and p.o. anticoagulation as suggested by medicine. Pressures Phase:Rest AO : / ( -5 ) @ 6:30:32 PM PA : 46 / 29 ( 36 ) @ 6:30:32 PM Hemodynamic Data Phase:Rest AO : / ( -5.0 ) @ 6:30:32 PM Clinical Evaluation EBL: 200ml Procedural Details Procedure Consent Obtained. Admit Source: Emergency department. Pre-Procedure Time Out. Identified patient by full name and date of as verbalized by the patient/guarantor. Does the consent match the physician's order: Yes. Accurate & Complete Informed Consent: Yes. Inpatient/Outpatient History & Physical on Chart: Yes. Visualize and Verify Site with Patient/Guarantor: N/A. Relevant Radiology Images available: Yes. Pre-op teaching completed and patient verbalized understanding. The risks, benefits, and alternatives of sedation and/or procedure were discussed by physician. The patient agrees to continue. Procedure started. PERRLA. Strong, equal hand supervisor liquid yeast bilaterally. Lungs clear x 5 lobes. IV Site on Arrival: 20 gauge in the right anticubital. IV Fluids: 0.9% NaCl at KVO. 0 mL infused prior to chemical processing laborer. Oxygen started at 10liters/min via simple mask. right groin was prepped with chloroprep then draped in the usual sterile fashion. left groin was prepped with chloroprep then draped in the usual sterile fashion. Physician notified. Baseline sample Acquired. HR: 149 BPM. Physician arrived. Physician scrubbed in. Immediate Pre-Procedure Time Out. Correct Patient: Yes; Correct Procedure: Yes; Correct Site: Yes; Correct Patient Position: Yes; Correct Supplies: Yes; Dried Flammable Prep: Yes Blood Products Available: N/A;. Lidocaine 1% infiltrated to the right groin. Anesthesia Deisy JACOBS and Dr Dia managing pt airway and sedation during procedure. Moriah Seaman RN nurse vehicle painter during procedure. Brown catheter inserted using sterile technique. Perclose x2 partially deployed into R femoral vein at this time. A 6 panamanian Angled Pig catheter in over wire. Hand injection performed through the pigtail catheter. Pulmonary Angiogram performed at 10ml/second for a total of 20ml. Catheter out. Standard wire removed. Amplatz stiff wire inserted. A 5 panamanian Angled Pig catheter in over wire. Catheter out. 6 Fr sheath exchanged for 14 panamanian Isabella Dryseal Flex. Amplatz wire removed. 5french pigtail inserted over standard wire through 14 fr Isabella Dryseal Flex to main pulmonary artery. Standard wire removed. Amplatz wire advanced to pulmonary artery through pigtail catheter. Pigtail catheter removed over amplatz wire. Penumbra 12 lightening aspiration catheter adavanced to pumonary artery over amplatz wire. Amplatz wire removed. ACT drawn. Results 124 seconds. Therapeutic limits - pre-heparin administration 90-150 seconds and monitoring heparin during a vascular procedure >250 seconds. Penumbra lightening catheter remains in pulmonary artery aspirating clot. Amplatz wire inserted through lightening catheter. Penumbra lightening catheter removed over wire. 5fr pigtail in over wire to pulmonary artery. Amplatz wire out. ACT drawn. Results 300 seconds. Therapeutic limits - pre-heparin administration 90-150 seconds and monitoring heparin during a vascular procedure >250 seconds. Checking results, pulmonary angiogram preformed. Amplatz wire inserted. Pigtail catheter removed. Amplatz wire removed. Isabella sheath out. Perclose finished deploying by Dr Ordonez.Perclose Successful. No VTE prophylaxis required. Total IV fluids: 1400 mL. A Perclose (Parso) was successful obtaining hemostatsis at the Right Femoral vein insertion site. Procedure completed. Complications: none. Estimated blood loss: 200ml. Responsiveness - Normal response to verbal stimuli; alert and oriented, PERRLA. Airway - Unaffected, no intervention required; spontaneous ventilation. Circulation: W/N/L, pulses unchanged. Nausea/Vomiting: No. Patient transferred by bed to ICU. Vital chart was stopped. Access Site Site: Right Femoral vein Sheath Size: 6 Fr Hemostasis Method: Perclose ([place]) Hemostasis Success: Successful Procedure Medications Start: 11:40 PM Stop: 11:40 PM Medication: Heparin Amount: 92132 units Route: I.V. I, the attending physician, have reviewed and verified all procedure medications. Yes, all medications given per verbal order Report Signatures Finalized by Benny Ordonez MD on 06/18/2021 09:13 PM
[2021-06-04] VITALS (87 sets, daily range): BP systolic 72–114; BP diastolic 45–90; PULSE 92–143; RESP 5–55; TEMP 36.4–37.4; O2SAT 78–100
--- NOTE | 2021-06-04 00:36 | ECG_ITS ---
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 Measurements Intervals [place] Rate: 117 P: 53 TN: 129 QRS: -30 QRSD: 117 T: 2 QT: 350 QTc: 489 Interpretive Statements SINUS TACHYCARDIA LOW QRS VOLTAGE IN PRECORDIAL LEADS [QRS DEFLECTION < 1.0 mV IN CHEST LEADS] INCOMPLETE RIGHT BUNDLE BRANCH BLOCK [90+ ms QRS DURATION, TERMINAL R IN V1/V2, 40+ ms S IN I/aVL/V4/V5/V6] INFERIOR MYOCARDIAL INFARCTION , OF INDETERMINATE AGE [40+ ms Q WAVE AND/OR ST/T ABNORMALITY IN II/aVF] MODERATE T-WAVE ABNORMALITY, CONSIDER ANTEROLATERAL ISCHEMIA [-0.1+ mV T-WAVE IN V3-V6] Compared to ECG 06/03/2021 15:01:29 Incomplete right bundle-branch block now present T-wave abnormality now present Possible ischemia now present Myocardial infarct finding still present Electronically Signed On 06-05-2021 0:11:52 BUN MACHINE OPERATOR by Elton Bautista M.D. [email or web address]
--- NOTE | 2021-06-04 00:36 | USCV_ITS ---
Estephanie Choi Age: 20 Gender: F : 2000 Exam Date: 06/04/2021 06:36 Ordering Phys: Everardo Fuentes MD Technologist: LORAINE Exam Location: [facility] [place] Indication: Pulmonary embolism BP: 110 / 70 HR: 109 Rhythm: Sinus Technical Quality: Technically difficult study MEASUREMENTS (Male / Female) Normal Values 2D ECHO LVOT Diameter 2.0 cm LV Ejection Fraction MOD 2C 59.8 % LV Ejection Fraction 2C AL 58.6 % LA Diameter 2.8 cm LA Width 1.9 cm LA Height 3.7 cm RA Width 2.4 cm RA Height 3.7 cm Aorta at Sinotubular Diameter 2.2 cm M-MODE Aortic Annulus Diameter 2.9 cm LA Ao Ratio MM 1.0 MV E Point Septal Separation 0.4 cm DOPPLER AV Peak Velocity 116.0 cm/s LVOT Peak Velocity 60.0 cm/s AV Area Cont Eq vti 1.9 cm squared AV Area Cont Eq pk 1.6 cm squared MV Peak Velocity 98.0 cm/s MV Area PHT 4.5 cm squared Mitral E to A Ratio 1.1 MV E' Velocity 30.0 cm/s Mitral E to MV E' Ratio 7.3 Mitral E to LV E' Lateral Ratio 8.1 Mitral E to LV E' Septal Ratio 6.8 TR Peak Velocity 247.1 cm/s TR Peak Gradient 24.4 mmHg TR Mean Velocity 209.9 cm/s TR Mean Gradient 18.1 mmHg TR Velocity Time Integral 72.6 cm TV Peak E Velocity 72.0 cm/s PV Peak Velocity 71.0 cm/s RV Acceleration Time 0.0 s RV Ejection Time 0.3 s RV AcT/ET 0.1 FINDINGS Left Ventricle Normal left ventricular size, systolic function with no diagnostic regional wall motion abnormalities. Left ventricular ejection fraction is estimated at 55 %. Normal diastolic function. Flattened septum in systole consistent with right ventricle pressure overload. Right Ventricle Dilated right ventricle with decreased systolic function. Right ventricular free wall akinesis. Right ventricular systolic pressure mmHg. Right Atrium Mildly increased right atrial size. Left Atrium Normal left atrial size. Mitral Valve Mildly thickened mitral valve. No mitral valve stenosis. Trace mitral valve regurgitation. Aortic Valve Structurally normal trileaflet aortic valve. No aortic valve stenosis. Mild to moderate aortic valve regurgitation. Tricuspid Valve Structurally normal tricuspid valve. No tricuspid valve stenosis. Moderate tricuspid valve regurgitation. Pulmonic Valve Structurally normal pulmonic valve. No pulmonary valve stenosis. Ixfl-cd-yxwcdylk pulmonary valve regurgitation. Pericardium Aorta Normal size aortic root and proximal ascending aorta. CONCLUSIONS 1. This is a technically difficult study. 2. Normal left ventricular size, systolic function with no diagnostic regional wall motion abnormalities. Left ventricular ejection fraction is estimated at 55 %. Normal diastolic function. Flattened septum in systole consistent with right ventricle pressure overload. 3. Dilated right ventricle with decreased systolic function. Right ventricular free wall akinesis. 4. Mild to moderate aortic valve regurgitation. 5. Moderate tricuspid valve regurgitation. 6. No prior similar studies to compare. Kaylen Menon MD (Electronically Signed) Final Date: 04 June 2021 17:19 S
--- NOTE | 2021-06-04 00:36 | USCV_ITS ---
Estephanie Choi Age: 20 Gender: F : 2000 Exam Date: 06/04/2021 06:21 Ordering Phys: Everardo Fuentes MD Technologist: LORAINE Exam Location: [facility] [place]_ Indication: PE HISTORY: Pulmonary embolism. PROCEDURES: Venous duplex imaging was performed in bilateral lower extremities. The following venous structures were evaluated: common femoral vein, profunda vein, proximal portion of the greater saphenous vein, superficial femoral vein, and the popliteal vein. In addition, the posterior tibial and peroneal trunk were evaluated. Serial compression, augmentation maneuvers, and spectral Doppler flow evaluation were performed. FINDINGS: + DVT seen in Left SFV Prox-Dist and Pop V. All other veins appear patent CONCLUSIONS Occlusive DVT LEFT femoral vein, extending proximal to distal, and popliteal veins Remainder of lower extremity veins Bilaterally are patent Luciano Mendes MD (Electronically Signed) Final Date: 04 June 2021 08:39 S
[2021-06-04] MEDS: fluconazole premix 200 MG/100 ML PREMIX 100 MG IV (01:20)
[2021-06-04] MEDS: sodium chloride 0.9% 1,000 ML 100 ML IV ×3 (01:27→13:55)
[2021-06-04] MEDS: famotidine 20 mg/2 mL INJ IVP ×2 (02:32→11:50)
[2021-06-04] MEDS: baclofen 10 mg Tablet 30 MG PO ×5 (02:33→20:57)
[2021-06-04] MEDS: tizanidine 4 mg Tablet 8 MG PO ×4 (02:33→20:58)
--- NOTE | 2021-06-04 02:40 | PC.RESP ---
Hr 140, no tx given.
[2021-06-04 03:47] LABS: Basophils % 0.2 %; Eosinophils % 0.1 %; Hematocrit 35.3 % (37.0-47.0); Lymphocytes # 2.1 10^3/uL (0.8-4.8); Mean Corpuscular HGB Conc 31.2 g/dL (30.0-36.0); Mean Corpuscular Hemoglobin 28.1 pg (28.0-34.0); Mean Corpuscular Volume 90.1 fl (81-99); Mean Platelet Volume 10.1 fL (7.4-10.4); Monocytes # 1.4 10^3/uL (0.2-0.9); Neutrophils # 12.32 10^3/uL (1.8-7.7); Neutrophils % 77.1 %; Nucleated Red Blood Cells % 0 %; Platelet Count 253 10^3/cmm (130-400); Red Blood Count 3.92 10^6/uL (4.1-5.3); Red Cell Distribution Width 13.7 % (12.1-15.1)
[2021-06-04 04:09] LABS: Alanine Aminotransferase 11 U/L (0-33); Albumin Level 2.9 g/dL (3.5-5.2); Alkaline Phosphatase 148 IU/L (35-105); Aspartate Amino Transferase 18 U/L (0-32); Blood Urea Nitrogen 11 mg/dL (6-20); Calcium 7.8 mg/dL (8.5-10.5); Carbon Dioxide 20 mmol/L (22-29); Chloride 109 mmol/L (98-107); Globulin 3.2 g/dL (1.3-4.6); Glomerular Filtration Rate 444.2 mL/min (90-130); Glucose 144 mg/dL (65-115); Osmolality Calculated 292 mOsm/kg (285-295); Sodium 140 mmol/L (136-145); Total Bilirubin 0.4 mg/dL (0.15-1.2); Total Protein 6.1 g/dL (6.6-8.7)
[2021-06-04 04:13] LABS: Anion Gap 15.5 (5-19); Potassium 4.5 mmol/L (3.5-5.1)
[2021-06-04 05:46] LABS: Add Urine Microscopic? YES; Bacteria Urine TRACE /hpf; Bilirubin Urine Neg (Negative); Blood Urine Neg (Negative); Glucose Urine UA Norm (Normal); Ketones Urine Negative (Negative); Leukocyte Esterase Urine Negative (Negative); Nitrate Urine Negative (Negative); Protein Urine 2+ (Negative); RBC Urine RARE /hpf (0-2); Specific Gravity, Urine 1.005 (1.005-1.030); Squamous Epithelial Cell Urine RARE /hpf (0-5); Urine Appearance Clear (CLEAR); Urine Color Yellow (Yellow); Urobilinogen Urine Norm (Negative); WBC Urine 0-4 /hpf (0-5); pH Urine 7 (5-7)
--- NOTE | 2021-06-04 06:25 | ANES.PREANE2 ---
Pre-Anesthetic Assessment Height/Weight: Height 1.57 m Weight 75.886 kg Temp Pulse Resp BP Pulse Ox 100.3 F H 108 H 44 H 104/63 99 06/03/21 20:30 06/04/21 06:00 06/04/21 06:00 06/04/21 06:00 06/04/21 06:00 Was Beta Rosario taken within 24 hours: N/A Was Clonidine taken within 24 hours: N/A Social No alcohol and No tobacco Exam alert Tachy, rhonci Airway Submandibular: within normal limits Cervical ROM: within normal limits Mallampati: Class III Dentition: chipped Comments: Comments: Difficult examination due to patient mental stat, very poor dentition Pulmonary Asthma CV/HEM Arrythmia Massive PE, saddle embolus GI G tube, s/p Amrita Neuropsych Seizure MR, cerebral palsy, spastic Anesthetic Plan ASA status: 4E Anesthesia: MAC Medications/Allergies Home Medications Medication Instructions Recorded Confirmed Last Taken Type inhalat.spacing dev,med. mask #1 each 05/24/19 05/19/21 Unknown Rx ([facility]) Hospital bed with full bed rails #1 ea 08/01/20 05/19/21 Unknown Rx albuterol sulfate 2.5 mg (3 mL) INHALATION Q6H PRN 10/04/20 05/19/21 Unknown Rx #75 ml baclofen 10 mg tablet 30 mg PO QID #360 tab 11/25/20 05/19/21 02/27/21 12:00 Rx tizanidine 4 mg tablet 8 mg PO TID 30 Days #180 tab 11/25/20 05/19/21 02/27/21 12:00 Rx G-tube #1 ea 12/14/20 05/19/21 Unknown Rx cetirizine 5 mg/5 mL oral solution 5 mg PO BEDTIME 02/27/21 05/19/21 02/26/21 History cholecalciferol (vitamin D3) 125 125 mcg PO QAM 02/27/21 05/19/21 02/27/21 History mcg (5,000 unit) capsule medroxyprogesterone 150 mg/mL 150 mg IM ONCE #1 ml 03/05/21 05/19/21 Unknown Rx intramuscular suspension (Depo-Provera) Bed rail full length #1 ea 03/07/21 05/19/21 Unknown Rx albuterol sulfate 90 mcg/actuation 2 puff INHALATION Q4H PRN #6.7 gm 05/19/21 05/19/21 Unknown Rx aerosol inhaler (Ventolin HFA) fluticasone propionate 110 2 puff INHALATION Q12H #12 gm 05/19/21 05/19/21 Unknown Rx mcg/actuation HFA aerosol inhaler (Flovent HFA) hydroxyzine HCl 10 mg/5 mL oral 50 mg (25 mL) PO BEDTIME 30 Days 05/19/21 05/19/21 Unknown Rx solution #750 ml lactulose 20 gram/30 mL oral 20 g (30 mL) PO BID PRN #1500 ml 05/19/21 05/19/21 Unknown Rx solution [id number] 3.5 4 drp OTIC (EAR) TID 10 Days #10 ml 05/19/21 05/19/21 Unknown Rx mg-10,000 unit/mL-1 % ear drops,susp trazodone 50 mg tablet 25 - 50 mg PO BEDTIME #60 tab 05/19/21 05/19/21 Unknown Rx zafirlukast 10 mg tablet (Accolate) 20 mg PO BID #60 tab 05/19/21 05/19/21 Unknown Rx Tegretol 100 mg/5 mL oral See Rx Instructions .ROUTE 05/30/21 Unknown Rx suspension (carbamazepine) .COMPLEX #450 milliliter NS Allergies Allergy/AdvReac Type Severity Reaction Status Date / Time azithromycin [From Zithromax] Allergy Unknown Verified 06/03/21 11:08 cephalexin [From Keflex] Allergy Unknown Verified 06/03/21 11:08 ibuprofen Allergy ADR-Gastrointestinal Verified 06/03/21 11:08 Upset lactose Allergy Unknown Verified 06/03/21 11:08 levofloxacin [From Levaquin] Allergy ALGY-Rash Verified 06/03/21 11:08 Penicillins Allergy Unknown Verified 06/03/21 11:08 pineapple Allergy Unknown Verified 06/03/21 11:08 Sulfa (Sulfonamide Allergy ALGY-Rash Verified 06/03/21 11:08 Antibiotics) Current Medications Generic Name Dose Route Start Last Admin Trade Name Freq PRN Reason Stop Dose Admin Albuterol/Ipratropium 3 ml 06/04/21 00:36 06/04/21 02:39 Ipratropium-Albuterol 3 Ml Neb INHALATION Not Given Q6H.RESPIRATORY ESTHELA Baclofen 30 mg 06/04/21 00:36 06/04/21 02:33 Baclofen 10 Mg Tablet PO 30 mg QID ESTHELA Administration Budesonide 0.5 mg 06/04/21 00:36 06/04/21 02:39 Budesonide 0.5 Mg/2 Ml Neb INHALATION Not Given BID.RESPIRATORY ESTHELA Famotidine 20 mg 06/04/21 00:36 06/04/21 02:32 Famotidine 20 Mg/2 Ml Inj IVP 20 mg Q12H ESTHELA Administration Heparin Sodium (Porcine) 0 unit 06/03/21 18:30 06/03/21 18:42 Heparin 5,000 Unit/Ml Inj 1 Ml IV 3,500 unit PRN PRN Administration Heparin weight-base protocol Protocol Heparin Sodium/Sodium Chloride 25,000 unit in 500 mls @ 0 mls/hr 06/03/21 18:30 06/03/21 19:10 Heparin Drip IV 14.13 unit/kg/hr .Q0M ESTHELA 20 mls/hr Administration Protocol Per Protocol Sodium Chloride 1,000 mls @ 100 mls/hr 06/03/21 18:45 06/04/21 05:25 Sodium Chloride 0.9% IV 100 mls/hr .Q10H ESTHELA Administration Non-Formulary Medication 5 mg 06/04/21 00:36 06/04/21 03:26 Cetirizine PO 5 mg BEDTIME ESTHELA Administration Non-Formulary Medication 50 mg 06/04/21 00:36 06/04/21 03:27 Hydroxyzine Hcl PO 50 mg BEDTIME ESTHELA Administration Non-Formulary Medication 20 mg 06/04/21 00:36 06/04/21 03:25 Zafirlukast [Accolate] PEG-TUBE 20 mg BID ESTHELA Administration Tizanidine HCl 8 mg 06/04/21 00:36 06/04/21 02:33 Tizanidine 4 Mg Tablet PO 8 mg TID ESTHELA Administration PFSH Anesthesia Medical History Asthma due to environmental allergies Constipation G tube feedings Insomnia Overweight (BMI 25.0-29.9) Seasonal allergic rhinitis Spastic quadriplegic cerebral palsy Unspecified intellectual disabilities Urine incontinence Vitamin D deficiency Surgical History History of open reduction and internal fixation (ORIF) procedure Left femur at [facility] 02/28/21 History of tonsillectomy and adenoidectomy 2001 Hx of myringotomy 2001 Status post open reduction and internal fixation (ORIF) of fracture Family History Grandfather Diabetes Paternal grandfather Maternal grandfather Heart disease Maternal grandmother Mother Diabetes Hyperlipidemia Thyroid condition Grandmother Diabetes Paternal grandmother Maternal grandmother Hyperlipidemia Maternal grandmother Thyroid condition Maternal grandmother Paternal grandmother Other Cancer Hypertension Social History Second hand smoke exposure: No Smoking risk assessment/counseling performed?: No Alcohol intake: never Desire information about alcohol rehabilitation?: No Counseling given: No Desire information about substance/drug rehabilitation?: No Counseling given: No Adopted: No Caregiver/support person: Yes Lives independently: No Household members: family Housing: House Marital status: Single Number of children: 0 service: No Current occupational status: disabled History of recent travel: No Sexually active: No Current gender identity: Female Data Anesthesia : 06/04/21 03:02 06/04/21 03:02 Short CBC 06/03/21 06/04/21 Range/Units 13:33 03:02 WBC 15.6 H 16.0 H (4.0-10.0) 10^3/uL Hgb 13.6 11.0 L (11.5-15.3) g/dL Hct 43.5 35.3 L (37.0-47.0) % MCV 86.8 90.1 (81-99) fl Plt Count 332 253 (130-400) 10^3/cmm Neut % (Auto) 73.9 77.1 % Neut # (Auto) 11.52 H 12.32 H (1.8-7.7) 10^3/uL BMP 06/03/21 06/04/21 12:50 03:02 Sodium 138 140 Potassium 4.2 4.5 Chloride 101 109 H Carbon Dioxide 21 L 20 L BUN 18 11 Creatinine 0.3 L 0.2 L Glucose 148 H 144 H Calcium 8.8 7.8 L Cardiac Enzymes 01/25/22 01/25/22 01/25/22 Range/Units 12:50 12:50 19:00 Troponin T Baseline 63 H (0-10) ng/L NT-Pro-B Natriuret Pep Cancelled 53938 H Liver Function 06/03/21 06/04/21 Range/Units 12:50 03:02 Total Bilirubin 0.3 0.4 (0.15-1.2) mg/dL AST 17 18 (0-32) U/L ALT 16 11 (0-33) U/L Alkaline Phosphatase 171 H 148 H (35-105) IU/L Albumin 3.8 2.9 L (3.5-5.2) g/dL Urine 06/04/21 Range/Units 02:52 Urine Color Yellow (Yellow) Urine Appearance Clear (CLEAR) Urine pH 7 (5-7) Ur Specific Colbert 1.005 (1.005-1.030) Urine Protein 2+ H (Negative) Urine Glucose (UA) Norm (Normal) Urine Ketones Negative (Negative) Urine Nitrate Negative (Negative) Urine Bilirubin Neg (Negative) Ur Leukocyte Esterase Negative (Negative) Urine RBC Rare (0-2) /hpf Urine WBC 0-4 H (0-5) /hpf Coags 06/03/21 12:50 C-Reactive Protein 299.8 H ABG 06/03/21 12:55 Specimen Type Arterial Sample Site Radial, right ABG pH 7.48 H ABG pCO2 30.7 L ABG pO2 55.4 L ABG HCO3 23.1 ABG Base Excess 0.4 O2 Delivery Device Nc O2 Liters/Min 1.0 Microbiology 06/03/21 17:33 MULU Preparation - Final Mouth 06/03/21 19:00 Blood Culture - Preliminary Blood SPECIMEN COLLECTED 06/03/21 16:00 Blood Culture - Preliminary Blood SPECIMEN COLLECTED Cardiac Studies: No Data to Display
[2021-06-04] MEDS: doxycycline 100 MG in sodium chloride 0.9% (plus) 100 ML IV (06:28)
--- NOTE | 2021-06-04 06:28 | ANE.PACU2 ---
Inpatient post-anesthesia follow up: Airway intact: Yes Vital signs: Temperature 100.3 F Pulse Rate 108 Respiratory Rate 44 Blood Pressure 104/63 Pulse Oximetry [Ro om Air at 87 Rest] Pulse Oximetry 99 Oxygen Delivery Me thod Nasal Cannula Oxygen Flow Rate 5 Fraction of Inspir ed Oxygen Hydration adequate: Yes Nausea and vomiting: No Pain level: 1 Mental status: Baseline
[2021-06-04 06:40] LABS: Partial Thromboplastin Time 139.8 SECONDS (23.9-36.7)
[2021-06-04] MEDS: ipratropium-albuterol 3 mL Neb INHALATION ×3 (08:44→20:10)
[2021-06-04] MEDS: budesonide 0.5 mg/2 mL Neb INHALATION ×2 (08:44→20:10)
--- NOTE | 2021-06-04 10:36 | PC.CHAP ---
Pastoral Care Encounter/Spiritual Assessment Type of Contact [] Declined electric range assembler visit [] Patient/Family/Request visit [] Outpatient visit [] Follow-up visit [] Physician referral [] Code/Alert [x] Routine visit [] Staff referral [] Actively dying [x] Patient sleeping [x] Family support [] [] Out of room [] Palliative care [] [] Receiving care in room [] Pre-surgical visit [] Trauma [] Long length of stay [x] ICU visit [x] Other: mother asleep in ICU waiting room... Relational/Emotional Strength [] Patient feels connected with others/family/visitors/staff [] Distress [] Loneliness/isolation [] Abandonment Spirituality of Patient [] Person of Valerie [] Attends Christianity of their Valerie [] Believes in Prayer [] Reads Bible or Faith materials [] There are Spiritual issues to be addressed Financial Representative Interventions [x] Prayer [] Active listening [] Non-anxious presence [] Spiritual/emotional support [] Crisis/trauma care [] Spiritual counseling [] Bereavement support [] Provided bereavement packet [] Provided Bible/devotional materials [] Provided toy/stuffed animal, coloring book to patient or family member [] Provided Communion [] Anointing/[place] [] Salvation [x] Completed spiritual assessment [] Other: Impact on Illness or Injury [] Angry [] Fearful [] Anxious [] Often cries [] Exhaustion [] Unable to work [] Unable to attend mandaen [] Unable to walk/stand [] Unable to read [] Unable to drive [] Unable to eat/drink [] Unable to sleep [] Unable to be with family [] Patient intubated [] Other: Summary Time spent with patient
[2021-06-04] MEDS: sodium chloride 0.9% 500 ML 999 ML IV ×2 (10:40→12:19)
--- NOTE | 2021-06-04 11:10 | PM.PN ---
Subjective Subjective: Interval history: Estephanie underwent thrombectomy for her saddle pulmonary embolism last night. She tolerated this well and is currently on a heparin drip in the ICU. Family was updated. Medications: Reviewed: Yes Vitals/I&O/Wt Last Vital Signs Temp 99.4 F 06/04/21 08:00 Pulse 96 06/04/21 10:00 Resp 30 H 06/04/21 10:00 BP 88/56 06/04/21 10:00 Pulse Ox 90 06/04/21 10:00 06/03/21 06/04/21 06/04/21 22:59 06:59 14:59 Intake Total 496.667 / 694.784 8543 / 1137 Output Total 450 / 450 450 / 450 Balance 46.667 / 46.667 687 / 687 Weight last 48 hrs Weight 75.886 kg Weight 70.76 kg Physical Exam Narrative: EXAM NARRATIVE: General exam appears much more comfortable Neck is supple no lymphadenopathy or thyromegaly Cardiovascular tachycardic, no murmur Lungs coarse bilaterally Abdomen is soft with positive bowel sounds. PEG tube noted. No skin breakdown. Extremities no cyanosis clubbing or edema, atrophy noted lower extremities. Data : 06/04/21 03:02 06/04/21 03:02 Micro: Microbiology 06/03/21 17:33 MULU Preparation - Final Mouth 06/03/21 19:00 Blood Culture - Preliminary Blood SPECIMEN COLLECTED 06/03/21 16:00 Blood Culture - Preliminary Blood SPECIMEN COLLECTED A&P Assessment and plan (1) Pulmonary embolism associated with COVID-19: Underwent thrombectomy last night Currently on a heparin drip We will convert to Lovenox, therapeutic dosing Was associated with significant right heart strain Tachycardia has improved significantly Status: Acute (2) COVID-19 virus infection: After review of CTA not a significant amount of infiltrates noted. Therefore baricitinib, dexamethasone, remdesivir not initiated or continued. Did have fever yesterday. Cultures were already obtained. Change doxycycline to Primaxin and monitor. Pulmonary toilet Oxygen as needed. Wean down as tolerated Await sputum culture Status: Acute (3) Thrush: Continue fluconazole Status: Acute (4) Partial epilepsy secondarily generalized: Continue Tegretol. Check level Status: Chronic (5) Asthma due to environmental allergies: Continue home medications Pulmonary toilet Status: Chronic (6) Spastic quadriplegic cerebral palsy: Significant baseline deficits.. Nonambulator Continue chronic medications, muscle relaxers Initiate tube feeds Status: Chronic Plan Full code Lovenox for DVT prophylaxis Attestations Medical Necessity Statement*: Needs continued hospitalization secondary to significant saddle pulmonary embolism with right heart strain Critical Care Time: 35 Other Attestations: The high probability of a clinically significant, sudden or life threatening deterioration of the patient's [infectious disease, vascular system(s) required my full and direct attention, intervention and personal management. The critical care time is as shown. This time is in addition to time spent performing any reported procedures but includes the following: [x] Data and vital sign review and interpretation [x] Patient assessment, examination and intervention [x] Documentation [x] Medication orders and management Coding Level of Care Code Acute Programming Development Project Manager for [facility] Fwd Diagnoses COVID-19 virus infection U07.1 Thrush B37.0 Partial epilepsy secondarily generalized Asthma due to environmental allergies J45.909 Spastic quadriplegic cerebral palsy G80.0 Pulmonary embolism associated with COVID-19 U07.1; I26.99
--- NOTE | 2021-06-04 11:39 | PC.NURSE ---
NS bolus given per orders, IV to L shoulder infiltrated, approx 200ml of NS infiltrated. IVF moved to [place]. The remainder of fluids infused without difficulty. BP remains low. Tube feeds started, family supplying formula, pump, and bags. Bolus feeds per pump at 400ml/h q4h while awake with 120ml free water flush after feeding. No other issues noted at this time. Will monitor.
--- NOTE | 2021-06-04 11:46 | PC.NUTR ---
Pt's family [employer] 5 cartons Peptamen 1.5 for bolus feedings at 0400/0800/1200/1600/2000 with 120 ml flush after feedings. This provides 1875 kcals which falls within range for Pt's estimated calorie needs, 85 grams protein which falls within range for Pt's estimated protein needs, and 960 mls fluid + 600 mls from flushes + 1560 mls which falls within range of Pt's estimated fluid needs.
[2021-06-04] MEDS: enoxaparin 80 mg/0.8 mL Syringe SUBCUT (11:49)
[2021-06-04 13:01] LABS: Hematocrit 28.9 % (37.0-47.0); Hemoglobin 8.9 g/dL (11.5-15.3)
[2021-06-04 13:41] LABS: Charge for UA Resulting for Rev
[2021-06-04 13:53] LABS: Bilirubin Urine Neg (Negative); Blood Urine 2+ (Negative); Glucose Urine UA Norm (Normal); Ketones Urine 1+ (Negative); Leukocyte Esterase Urine Negative (Negative); Nitrate Urine Negative (Negative); Protein Urine 1+ (Negative); Specific Gravity, Urine 1.025 (1.005-1.030); Urine Appearance SL Hazy (CLEAR); Urine Color Orange (Yellow); Urobilinogen Urine 4 mg/dL (Negative); pH Urine 5 (5-7)
[2021-06-04 13:54] LABS: Add Urine Microscopic? NO
--- NOTE | 2021-06-04 18:11 | PC.NURSE ---
PT repositioned q2h and PRN, oral care performed q2h and PRN. PT unable to make needs known. VSS. BP remains soft. MD aware. Pt received 2 500ml boluses today. Effective temporarily. Tube feeds tolerated well. Moderate amount of urine flowing free to BSD. No other issues noted. Will monitor.
--- NOTE | 2021-06-04 19:33 | PM.PN ---
Subjective Subjective: Interval history: Status post thrombectomy using penumbra catheter. Vitals/I&O/Wt Last Vital Signs Temp 97.6 F 06/04/21 14:00 Pulse 101 H 06/04/21 18:00 Resp 31 H 06/04/21 18:00 BP 96/63 06/04/21 18:00 Pulse Ox 93 06/04/21 18:00 06/04/21 06/04/21 06/04/21 06:59 14:59 22:59 Intake Total 496.667 / 443.322 3391.5 / 3263.5 640 / 3903.5 Output Total 450 / 450 450 / 450 225 / 675 Balance 46.667 / 46.667 2813.5 / 2813.5 415 / 3228.5 Weight last 48 hrs Weight 167 lb 4.8 oz Weight 156 lb Data : 06/04/21 12:50 06/04/21 03:02 Micro: Microbiology 06/03/21 16:00 Blood Culture - Preliminary Blood 06/03/21 17:33 MULU Preparation - Final Mouth 06/03/21 19:00 Blood Culture - Preliminary Blood SPECIMEN COLLECTED A&P Assessment and plan (1) Pulmonary embolism associated with COVID-19: Status post thrombectomy of pulmonary embolism, appeared to be stable. Continue anticoagulation. Discussed with Dr. Galdamez agree with switching to Lovenox. At this point we will sign off if needed will further assess Status: Acute Attestations Medical Necessity Statement*: Patient require continuation hospitalization for above defined care Coding Level of Care Code Acute Systems Security Consultant for [facility] [employer] Diagnoses Pulmonary embolism associated with COVID-19 U07.1; I26.99
--- NOTE | 2021-06-04 20:35 | PC.PHAR ---
Pharmacokinetic dosing service Date: 06/04/21 Time: 2030 Objective: Patient: Estephanie Choi Floor: ICU-8 Age: 20 yo Serum creatinine: 0.2 mg/dL Height: 62.0 Inches Weight (kg): 75.886 Diagnosis: Relevant medical/social history: Cultures and sensitivities: Other labs: Assessment: IBW (kg): 50.10 Dosing wt(kg): 75.886 Estimated Creatinine clearance (ml/min): 130 Clearance limited to 130 ml/min to reduce risk of overdosing. CRCL method: Cockcroft and Gault using ibw(default). Drug selected: Vancomycin Loading dose (mg): 0 Vd (liters): 68.3 (factor used: 0.9 L/kg) Damian (hr-1): 0.112 Half life (hrs): 6.19 Recommended dose: 1250 mg Interval: 8 hrs Infusion time (hrs): 1.5 Predicted peak (mcg/mL): 28.5 Predicted trough (mcg/mL): 13.76 Total body weight is being used for vancomycin dosing. Renal function is stable [ ] /unstable [ ] Recommendations: Give Vancomycin 1250 mg q 8 hrs with an expected Cpeak of 28.5 mcg/ml and an expected Ctrough of 13.76 mcg/ml Renal dosing of other antibiotics (review renal dosing of other medications and list guidelines here): Thank you for the consult, will continue to follow. Signature: Susan Cisse [facility]
[2021-06-04] MEDS: vancomycin 1,250 MG/250 ML PIGGYBACK 250 MG IV (21:00)
[2021-06-04 21:26] LABS: Partial Thromboplastin Time 37.1 SECONDS (23.9-36.7)
[2021-06-05] VITALS (53 sets, daily range): BP systolic 55–142; BP diastolic 38–101; PULSE 80–152; RESP 14–54; TEMP 37–38; O2SAT 52–100; BMI 32.4
[2021-06-05] MEDS: enoxaparin 80 mg/0.8 mL Syringe SUBCUT ×2 (00:49→12:03)
[2021-06-05] MEDS: famotidine 20 mg/2 mL INJ IVP ×2 (00:49→11:23)
[2021-06-05] MEDS: sodium chloride 0.9% 1,000 ML 100 ML IV (00:54)
[2021-06-05] MEDS: ipratropium-albuterol 3 mL Neb INHALATION ×4 (03:00→20:39)
[2021-06-05 03:43] LABS: Basophils % 0.2 %; Eosinophils # 0.1 10^3/uL (0.0-0.8); Eosinophils % 0.6 %; Hematocrit 30.7 % (37.0-47.0); Hemoglobin 9.4 g/dL (11.5-15.3); Lymphocytes # 2.9 10^3/uL (0.8-4.8); Lymphocytes % 27.4 %; Mean Corpuscular HGB Conc 30.6 g/dL (30.0-36.0); Mean Corpuscular Hemoglobin 27.9 pg (28.0-34.0); Mean Corpuscular Volume 91.1 fl (81-99); Mean Platelet Volume 10.6 fL (7.4-10.4); Monocytes # 1.2 10^3/uL (0.2-0.9); Neutrophils # 6.34 10^3/uL (1.8-7.7); Neutrophils % 60.3 %; Nucleated Red Blood Cells % 0.2 %; Platelet Count 237 10^3/cmm (130-400); Red Blood Count 3.37 10^6/uL (4.1-5.3); Red Cell Distribution Width 13.8 % (12.1-15.1); White Blood Count 10.5 10^3/uL (4.0-10.0)
[2021-06-05] MEDS: vancomycin 1,250 MG/250 ML PIGGYBACK 250 MG IV ×3 (04:19→20:26)
[2021-06-05 04:22] LABS: Procalcitonin 0.18 ng/mL (0-0.5)
[2021-06-05 04:24] LABS: Alanine Aminotransferase 14 U/L (0-33); Albumin Level 2.8 g/dL (3.5-5.2); Alkaline Phosphatase 124 IU/L (35-105); Aspartate Amino Transferase 20 U/L (0-32); Blood Urea Nitrogen 12 mg/dL (6-20); Calcium 8.5 mg/dL (8.5-10.5); Carbon Dioxide 15 mmol/L (22-29); Chloride 111 mmol/L (98-107); Glomerular Filtration Rate 444.2 mL/min (90-130); Glucose 100 mg/dL (65-115); Osmolality Calculated 292 mOsm/kg (285-295); Sodium 141 mmol/L (136-145); Total Bilirubin 0.4 mg/dL (0.15-1.2); Total Protein 5.8 g/dL (6.6-8.7)
[2021-06-05 04:25] LABS: Anion Gap 18.8 (5-19); Potassium 3.8 mmol/L (3.5-5.1)
--- NOTE | 2021-06-05 05:37 | PC.NURSE ---
Shift Note Frequent safety and comfort rounds continue. Orders and/or nursing care completed as indicated. Patient monitored for response to intervention and treatment(s). Education provided includes medication and tube feedings. Patient needs reinforcement teaching. Patient had an uneventful shift, she remains on 2L oxygen via nasal cannula. Brown catheter drained 230 mls of urine overnight. No wounds or skin issues noted at this time. NS is infusing per orders, please see MAR for infusion rate. Will continue to monitor.
[2021-06-05] MEDS: FUROsemide 10 mg/mL SDV 2mL 20 MG IVP (07:46)
[2021-06-05 07:47] LABS: C Reactive Protein 181.8 mg/L (0.0-4.9)
[2021-06-05] MEDS: tizanidine 4 mg Tablet 8 MG PO ×3 (08:13→20:26)
[2021-06-05] MEDS: baclofen 10 mg Tablet 30 MG PO ×4 (08:13→20:26)
--- NOTE | 2021-06-05 08:37 | PC.NURSE ---
Pt tachycardic this AM in 130's. MD notified, fluids stopped and iv lasix given. Oral care performed as well as pt allows. Bilateral wrist restraints in place per orders. ABT was infusing to L shoulder IV upon arrival this AM, IV unable to handle faster rates and IVF swelled upper chest. IV stopped and moved to R AC PIV. Approx 120ml residual noted to peg tube, 0800 feeding held. Will monitor
[2021-06-05] MEDS: budesonide 0.5 mg/2 mL Neb INHALATION ×2 (09:28→20:39)
[2021-06-05 10:10] LABS: Bacillus cereus group Not Detected (NOT DETECT); Bacillus subtillis group Not Detected (NOT DETECT); Corynebacterium Not Detected (NOT DETECT); Cutibacterium acnes (P.acnes) Not Detected (NOT DETECT); Enterococcus Not Detected (NOT DETECT); Enterococcus faecalis Not Detected (NOT DETECT); Enterococcus faecium Not Detected (NOT DETECT); Lactobacillus species Not Detected (NOT DETECT); Listeria Not Detected (NOT DETECT); Listeria monocytogenes Not Detected (NOT DETECT); Micrococcus Not Detected (NOT DETECT); Pan Candida Not Detected (NOT DETECT); Pan Gram-Negative Not Detected (NOT DETECT); Staphylococcus epidermidis Detected (NOT DETECT); Staphylococcus lugdunensis Not Detected (NOT DETECT); Staphylococcus species Detected (NOT DETECT); Streptococcus agalactiae Not Detected (NOT DETECT); Streptococcus anginosus group Not Detected (NOT DETECT); Streptococcus pneumoniae Not Detected (NOT DETECT); Streptococcus pyogenes Not Detected (NOT DETECT); Streptococcus species Not Detected (NOT DETECT); mecA Detected (NOT DETECT); mecC Not Detected (NOT DETECT)
--- NOTE | 2021-06-05 10:23 | P.PN_ITS ---
Subjective Subjective: Interval history: Estephanie was significantly congested this morning. I gave her a dose of Lasix and she diuresed 1400 cc. She had significant tachycardia as well which is improved. She smiles some, and makes eye contact when I enter the room. Medications: Reviewed: Yes Vitals/I&O/Wt Last Vital Signs Temp 100.4 F H 06/05/21 08:00 Pulse 103 H 06/05/21 10:01 Resp 31 H 06/05/21 10:01 BP 72/43 06/05/21 10:01 Pulse Ox 94 06/05/21 10:01 06/04/21 06/05/21 06/05/21 22:59 06:59 14:59 Intake Total 990 / 4253.5 2200 / 6453.5 893.333 / 893.333 Output Total 225 / 675 230 / 905 1400 / 1400 Balance 765 / 3578.5 1970 / 5548.5 -506.667 / -506.667 Weight last 48 hrs Weight 80.399 kg Weight 75.886 kg Weight 70.76 kg Physical Exam Narrative: EXAM NARRATIVE: General exam does not appear in distress Neck is supple no lymphadenopathy or thyromegaly Cardiovascular tachycardic, 2/6 systolic murmur Lungs coarse bilaterally, mainly comprising upper airway noises Abdomen is soft with positive bowel sounds. PEG tube noted. No skin breakdown. Extremities no cyanosis clubbing or edema, atrophy noted lower extremities. Data : 06/05/21 03:17 06/05/21 03:17 Micro: Microbiology 06/03/21 16:00 Blood Culture - Preliminary Blood Staphylococcus epidermidis 06/03/21 19:00 Blood Culture - Preliminary Blood NEGATIVE TO DATE A&P Assessment and plan (1) Pulmonary embolism associated with COVID-19: Underwent thrombectomy early in the morning June 04 Currently on Lovenox therapeutic dosing Was associated with right heart strain Tachycardia improved Some fluid overload this morning addressed with IV Lasix Status: Acute (2) COVID-19 virus infection: After review of CTA not a significant amount of infiltrates noted. Therefore baricitinib, dexamethasone, remdesivir not initiated or continued. Currently on Primaxin. Vancomycin has now been added secondary to blood culture having gram-positive organisms. Check MRSA PCR. Pulmonary toilet Down to 2 L of oxygen Await sputum culture Status: Acute (3) Thrush: Continue fluconazole Status: Acute (4) Partial epilepsy secondarily generalized: Continue Tegretol. Level was checked and normal Status: Chronic (5) Asthma due to environmental allergies: Continue home medications Pulmonary toilet Status: Chronic (6) Spastic quadriplegic cerebral palsy: Significant baseline deficits.. Nonambulator Continue chronic medications, muscle relaxers Tube feeds have been initiated Status: Chronic Plan Full code Lovenox for DVT prophylaxis Attestations Medical Necessity Statement*: Needs continued hospitalization for close monitoring secondary to saddle pulmonary embolism in the face of recent Covid infection. Coding Level of Care Code Acute Canceling And Cutting Control Clerk for [facility] Fwd Diagnoses Pulmonary embolism associated with COVID-19 U07.1; I26.99 COVID-19 virus infection U07.1 Thrush B37.0 Partial epilepsy secondarily generalized Asthma due to environmental allergies J45.909 Spastic quadriplegic cerebral palsy G80.0
[2021-06-05 13:48] LABS: Vancomycin Trough 18.2 ug/mL (10-15)
--- NOTE | 2021-06-05 18:31 | PC.NURSE ---
Pt resting in bed. Repositioned and oral care performed q2h and PRN. Bilateral wrist restraints in place per orders. VSS. BP labile throughout day, MD orders to monitor. Large amount of UOP after lasix this AM. TF tolerated well. No other issues noted. Will monitor.
[2021-06-06] VITALS (35 sets, daily range): BP systolic 83–124; BP diastolic 41–85; PULSE 88–135; RESP 10–42; TEMP 36.9–37.6; O2SAT 87–100; BMI 32.4
[2021-06-06] MEDS: enoxaparin 80 mg/0.8 mL Syringe SUBCUT ×2 (01:08→11:58)
[2021-06-06] MEDS: famotidine 20 mg/2 mL INJ IVP ×2 (01:08→11:58)
[2021-06-06] MEDS: ipratropium-albuterol 3 mL Neb INHALATION ×4 (02:52→21:34)
[2021-06-06] MEDS: sodium chloride 0.9% 1,000 ML 999 ML IV (03:51)
--- NOTE | 2021-06-06 03:52 | PC.NURSE ---
Low BP Patient blood pressure noted to be low, informed medical cost consultant hospitalist. Verbal orders given to administer NS bolus.
[2021-06-06] MEDS: vancomycin 1,250 MG/250 ML PIGGYBACK 250 MG IV ×2 (04:13→16:47)
[2021-06-06 05:34] LABS: Basophils % 0.1 %; Eosinophils # 0.1 10^3/uL (0.0-0.8); Eosinophils % 0.8 %; Hematocrit 30.4 % (37.0-47.0); Hemoglobin 9.1 g/dL (11.5-15.3); Lymphocytes # 1.9 10^3/uL (0.8-4.8); Lymphocytes % 25.1 %; Mean Corpuscular HGB Conc 29.9 g/dL (30.0-36.0); Mean Corpuscular Hemoglobin 27.8 pg (28.0-34.0); Mean Platelet Volume 10.4 fL (7.4-10.4); Monocytes # 0.9 10^3/uL (0.2-0.9); Monocytes % 11.6 %; Neutrophils # 4.58 10^3/uL (1.8-7.7); Neutrophils % 61.9 %; Nucleated Red Blood Cells % 0.3 %; Platelet Count 275 10^3/cmm (130-400); Red Blood Count 3.27 10^6/uL (4.1-5.3); Red Cell Distribution Width 13.9 % (12.1-15.1); White Blood Count 7.4 10^3/uL (4.0-10.0)
--- NOTE | 2021-06-06 05:41 | PC.NURSE ---
Shift Note Frequent safety and comfort rounds continue. Orders and/or nursing care completed as indicated. Patient monitored for response to intervention and treatment(s). Education provided includes hypotension and fluid bolus. Patient needs reinforcement teaching. Patient remains on 2L oxygen via nasal cannula and has no wounds/skin issues noted at this time. Peptaman administered through PEG tube with 120 ml water flushes per order. Aspirated 30 mls of gastric residual from PEG tube. Patient appeared restless at times throughout the night, frequently reoriented patient to surroundings. Will continue to monitor.
[2021-06-06 06:06] LABS: Alanine Aminotransferase 15 U/L (0-33); Albumin Level 2.7 g/dL (3.5-5.2); Alkaline Phosphatase 137 IU/L (35-105); Anion Gap 16.6 (5-19); Aspartate Amino Transferase 18 U/L (0-32); Blood Urea Nitrogen 8 mg/dL (6-20); Calcium 7.6 mg/dL (8.5-10.5); Carbon Dioxide 17 mmol/L (22-29); Chloride 110 mmol/L (98-107); Globulin 3.2 g/dL (1.3-4.6); Glomerular Filtration Rate 444.2 mL/min (90-130); Glucose 107 mg/dL (65-115); Osmolality Calculated 289 mOsm/kg (285-295); Potassium 3.6 mmol/L (3.5-5.1); Sodium 140 mmol/L (136-145); Total Bilirubin 0.3 mg/dL (0.15-1.2); Total Protein 5.9 g/dL (6.6-8.7)
[2021-06-06] MEDS: baclofen 10 mg Tablet 30 MG PO ×3 (08:16→20:15)
[2021-06-06] MEDS: tizanidine 4 mg Tablet 8 MG PO ×3 (08:16→20:15)
[2021-06-06] MEDS: budesonide 0.5 mg/2 mL Neb INHALATION ×2 (08:30→21:34)
--- NOTE | 2021-06-06 10:09 | PM.PN ---
Subjective Subjective: Interval history: No issues overnight. Blood pressure does drift down to 90 systolic or a little less while sleeping. Still requiring 2 L of oxygen. Patient herself appears comfortable. Medications: Reviewed: Yes Vitals/I&O/Wt Last Vital Signs Temp 99.6 F 06/06/21 08:01 Pulse 97 06/06/21 10:00 Resp 18 06/06/21 10:00 BP 83/68 06/06/21 10:00 Pulse Ox 93 06/06/21 10:00 06/05/21 06/06/21 06/06/21 22:59 06:59 14:59 Intake Total 1380 / 2693.333 2150 / 4843.333 250 / 250 Output Total 250 / 1650 200 / 1850 Balance 1130 / 7196.102 0959 / 2993.333 250 / 250 Weight last 48 hrs Weight 80.399 kg Weight 80.399 kg Physical Exam Narrative: EXAM NARRATIVE: General exam does not appear in distress. Heart rate 100 while sleeping, blood pressure 83/68 Neck is supple no lymphadenopathy or thyromegaly Cardiovascular tachycardic, 2/6 systolic murmur Lungs coarse bilaterally, mainly comprising upper airway noises Abdomen is soft with positive bowel sounds. PEG tube noted. No skin breakdown. Extremities no cyanosis clubbing or edema, atrophy noted lower extremities. Urinary Catheter Management: Brown: Cath Placed During This Visit: yes Reason for Continuing Indwelling Catheter: Accurate Measurement of Urinary Output in Critically Ill Patients Urinary Catheter Date of Insertion: 06/03/21 Data : 06/06/21 05:22 06/06/21 05:22 Micro: Microbiology 06/04/21 13:24 Urine Culture - Final Urine Catheterized 06/03/21 16:00 Blood Culture - Preliminary Blood Staphylococcus epidermidis 06/05/21 10:40 MRSA Culture - Final Nose A&P Assessment and plan (1) Pulmonary embolism associated with COVID-19: Underwent thrombectomy early in the morning June 04 Currently on Lovenox therapeutic dosing Was associated with right heart strain Tachycardia improved Overall appears stable enough for transfer to a regular floor. Consider transition to [facility] tomorrow Status: Acute (2) COVID-19 virus infection: After review of CTA not a significant amount of infiltrates noted. Therefore baricitinib, dexamethasone, remdesivir not initiated or continued. Currently on Primaxin. Vancomycin has now been added secondary to blood culture having gram-positive organisms. 2/4 bottles with staph epidermidis. May be contamination. She did have a hip fracture in February with repair. The wound site looks good. Repeat blood cultures ordered for tomorrow. MRSA PCR negative. Before discontinuing vancomycin will make sure all cultures do not turn positive. Pulmonary toilet Down to 2 L of oxygen Await sputum culture Status: Acute (3) Thrush: Continue fluconazole Status: Acute (4) Partial epilepsy secondarily generalized: Continue Tegretol. 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
--- NOTE | 2021-06-06 13:42 | PC.NURSE ---
Addendum entered by Jake Gomez RN 06/06/21 13:45: Restraints removed upon transfer Original Note: 1300 Report given to David Deng. 1310 Pt transferred to room 253-2. Tolerated well. Pericare given per this nurse d/t BM.
[2021-06-07] VITALS (14 sets, daily range): BP systolic 85–97; BP diastolic 53–63; PULSE 77–118; RESP 17–28; TEMP 36.7–37.3; O2SAT 91–98
[2021-06-07] MEDS: acetaminophen 325 mg Tablet 650 MG PO (00:21)
[2021-06-07] MEDS: enoxaparin 80 mg/0.8 mL Syringe SUBCUT (00:21)
--- NOTE | 2021-06-07 00:59 | PC.NURSE ---
Vitals reported to RN.
[2021-06-07] MEDS: vancomycin 1,250 MG/250 ML PIGGYBACK 250 MG IV ×2 (01:07→14:30)
[2021-06-07] MEDS: famotidine 20 mg/2 mL INJ IVP (01:09)
[2021-06-07] MEDS: baclofen 10 mg Tablet 30 MG PO ×4 (03:56→19:46)
[2021-06-07] MEDS: ipratropium-albuterol 3 mL Neb INHALATION ×4 (04:14→20:42)
[2021-06-07] MEDS: budesonide 0.5 mg/2 mL Neb INHALATION ×2 (09:00→20:42)
--- NOTE | 2021-06-07 09:09 | P.PN_ITS ---
Subjective Subjective: Interval history: She appears to be comfortable and in good spirits this morning. Of note her blood pressure is a bit soft. She has no IV fluids. Vitals/I&O/Wt Last Vital Signs Temp 98.4 F 06/07/21 07:30 Pulse 114 H 06/07/21 07:30 Resp 22 H 06/07/21 07:30 BP 87/53 06/07/21 07:30 Pulse Ox 97 06/07/21 07:30 06/06/21 06/07/21 06/07/21 22:59 06:59 14:59 Intake Total 1020 / 1710 820 / 2530 Output Total 1300 / 1300 Balance 1020 / 1710 -480 / 1230 Weight last 48 hrs Weight 188 lb Weight 177 lb 4 oz Physical Exam Narrative: EXAM NARRATIVE: She is in no distress this morning. Her lungs are fairly clear. Her vitals are noted. Urinary Catheter Management: Brown: Cath Placed During This Visit: yes Reason for Continuing Indwelling Catheter: Acute Urinary Retention or Obstruction Urinary Catheter Date of Insertion: 06/03/21 Data : 06/06/21 05:22 06/06/21 05:22 Micro: Microbiology 06/04/21 13:24 Urine Culture - Final Urine Catheterized A&P Assessment and plan (1) Pulmonary embolism associated with COVID-19: I will transition her over to [facility] today. Status: Acute (2) Pulmonary embolism: Status: Acute (3) COVID-19 virus infection: Status: Acute (4) Autism: Status: Chronic (5) Hypotension: I will give her a little bit of IV fluids. She she is noted to be afebrile. She is on Primaxin and vancomycin for possible sepsis. Overall she seems to be improving Status: Acute Attestations Medical Necessity Statement*: In all likelihood she needs to be here for 2 more midnights. Coding Level of Care Code Acute Germination Worker for Tobias Fwsara Diagnoses Pulmonary embolism associated with COVID-19 U07.1; I26.99 Pulmonary embolism I26.99 COVID-19 virus infection U07.1 Autism F84.0 Hypotension I95.9
[2021-06-07 10:47] LABS: Basophils % 0.4 %; Eosinophils # 0.1 10^3/uL (0.0-0.8); Eosinophils % 1.2 %; Hematocrit 34.4 % (37.0-47.0); Lymphocytes # 1.6 10^3/uL (0.8-4.8); Lymphocytes % 22.6 %; Mean Corpuscular Hemoglobin 27.8 pg (28.0-34.0); Mean Corpuscular Volume 87.1 fl (81-99); Mean Platelet Volume 11.3 fL (7.4-10.4); Monocytes # 0.8 10^3/uL (0.2-0.9); Monocytes % 10.3 %; Neutrophils # 4.69 10^3/uL (1.8-7.7); Neutrophils % 64.8 %; Nucleated Red Blood Cells % 0.4 %; Platelet Count 281 10^3/cmm (130-400); Red Blood Count 3.95 10^6/uL (4.1-5.3); Red Cell Distribution Width 14.3 % (12.1-15.1); White Blood Count 7.3 10^3/uL (4.0-10.0)
[2021-06-07 11:05] LABS: Albumin Level 2.9 g/dL (3.5-5.2); Alkaline Phosphatase 146 IU/L (35-105); Blood Urea Nitrogen 6 mg/dL (6-20); Calcium 8.3 mg/dL (8.5-10.5); Carbon Dioxide 15 mmol/L (22-29); Chloride 110 mmol/L (98-107); Globulin 2.7 g/dL (1.3-4.6); Glomerular Filtration Rate 154.3 mL/min (90-130); Glucose 101 mg/dL (65-115); Osmolality Calculated 288 mOsm/kg (285-295); Sodium 140 mmol/L (136-145); Total Bilirubin 0.3 mg/dL (0.15-1.2); Total Protein 5.6 g/dL (6.6-8.7)
[2021-06-07 11:06] LABS: Anion Gap 19.2 (5-19); Aspartate Amino Transferase 28 U/L (0-32); Potassium 4.2 mmol/L (3.5-5.1)
[2021-06-07 11:07] LABS: Alanine Aminotransferase 19 U/L (0-33)
[2021-06-07] MEDS: tizanidine 4 mg Tablet 8 MG PO ×3 (11:40→19:47)
[2021-06-07] MEDS: sodium chloride 0.9% 250 ML IV (11:41)
[2021-06-07] MEDS: apixaban 5 mg Tablet PEG-TUBE (19:47)
[2021-06-07 22:33] LABS: Vancomycin Trough 16.6 ug/mL (10-15)
[2021-06-07] MEDS: vancomycin 1,250 MG/250 ML PIGGYBACK 200 MG IV (23:06)
[2021-06-08] VITALS (11 sets, daily range): BP systolic 105–130; BP diastolic 69–86; PULSE 77–110; RESP 15–18; TEMP 36.8–37.3; O2SAT 86–100
[2021-06-08] MEDS: ipratropium-albuterol 3 mL Neb INHALATION ×2 (02:33→09:16)
[2021-06-08] MEDS: baclofen 10 mg Tablet 30 MG PO ×2 (03:42→13:44)
[2021-06-08] MEDS: vancomycin 1,250 MG/250 ML PIGGYBACK 200 MG IV (08:54)
[2021-06-08] MEDS: tizanidine 4 mg Tablet 8 MG PO (09:01)
[2021-06-08] MEDS: apixaban 5 mg Tablet PEG-TUBE (09:02)
[2021-06-08] MEDS: budesonide 0.5 mg/2 mL Neb INHALATION (09:17)
--- NOTE | 2021-06-08 11:33 | P.DS_ITS ---
Discharge Providers Date of Admission: 06/04/21 00:56 Date of Discharge: June 08, 2021 Attending Provider at Admission: Benny Ordonez MD Attending Provider at Discharge: aIn Atkins MD Primary Care Provider: KODY Chacon Diagnoses at Discharge Discharge Diagnosis (1) Pulmonary embolism associated with COVID-19: Status: Acute (2) Pulmonary embolism: Status: Acute (3) COVID-19 virus infection: Status: Acute (4) Autism: Status: Chronic (5) Hypotension: Status: Acute Reason for Visit Reason for Visit: PCP SENT FOR LOW SATS AND SOB, CONGESTION Hospital Course Hospital Course She was admitted with hypoxia Nydia Covid infection and was diagnosed with a pulmonary embolus. She developed some fever, that in retrospect was probably related to her pulmonary emboli. She is doing really well at the time of discharge, and is down to 2 L on her oxygen. If we can arrange for home health today to get her oxygen lined out then she can go home on 2 L with follow-up with her primary care promptly. We placed her on Eliquis on this discharge due to her pulmonary embolus. Initially up gave her 5 mg twice daily but given her body habitus and size, I think 2.5 twice daily is probably more in order. There is been no evidence of bleeding since she is been on anticoagulation. Physical Exam Urinary Catheter Management: Brown: Cath Placed During This Visit: yes Reason for Continuing Indwelling Catheter: Other Urinary Catheter Date of Insertion: 06/03/21 Discharge Data Studies Completed and Pending Completed Studies During Hospitalization Category Date Time Status CT angio chest PE protcl [id number] Stat Cat Scan 06/03/21 13:23 Completed XR chest 1V portable [id number] Stat Exams 06/03/21 11:30 [place] [id number] Routine Ultrasound 06/04/21 00:36 Completed CV. echo complete* [id number] Routine Ultrasound 06/04/21 00:36 Completed Pending at discharge Category Date Time Status FURNACE CHARGING MACHINE OPERATOR request for service Routine Exams 06/03/21 21:49 Taken Blood Culture AM LABS Lab 06/07/21 21:57 Results Blood Culture Stat Lab 06/03/21 19:00 Results Sputum Culture and Gram Stain Routine Lab 06/03/21 18:00 Uncollected Radiology Impressions Chest X-Ray 06/03/21 11:30 IMPRESSION: 1. Shallow inspiration with chronic elevation right hemidiaphragm appears unchanged. 2. Cardiomegaly. 3. Mild bilateral perihilar interstitial thickening can be seen with bronchitis. 4. No focal pneumonia or pleural fluid. Chest CTA 06/03/21 13:23 IMPRESSION: 1. Extensive bilateral pulmonary emboli with a saddle embolus. 2. Elevated right heart pressure, with an RV/LV ratio greater than 1. ADDENDUM: 06/03/21 [id number] THIS REPORT CONTAINS FINDINGS THAT MAY BE CRITICAL TO PATIENT CARE. The findings were verbally communicated via telephone conference with Dr. Oneil at 6:31 PM BACKUP OPERATOR on 06/03/2021. The findings were acknowledged and understood. Laboratory Results WBC 7.3 10^3/uL (4.0-10.0) 06/07/21 10:20 RBC 3.95 10^6/uL (4.1-5.3) L 06/07/21 10:20 Hgb 11.0 g/dL (11.5-15.3) L 06/07/21 10:20 Hct 34.4 % (37.0-47.0) L 06/07/21 10:20 MCV 87.1 fl (81-99) D 06/07/21 10:20 MCH 27.8 pg (28.0-34.0) L 06/07/21 10:20 MCHC 32.0 g/dL (30.0-36.0) D 06/07/21 10:20 RDW 14.3 % (12.1-15.1) 06/07/21 10:20 Plt Count 281 10^3/cmm (130-400) 06/07/21 10:20 MPV 11.3 fL (7.4-10.4) H 06/07/21 10:20 Neut % (Auto) 64.8 % 06/07/21 10:20 Lymph % (Auto) 22.6 % 06/07/21 10:20 Wilson % (Auto) 10.3 % 06/07/21 10:20 Eos % (Auto) 1.2 % 06/07/21 10:20 Baso % (Auto) 0.4 % 06/07/21 10:20 Neut # (Auto) 4.69 10^3/uL (1.8-7.7) 06/07/21 10:20 Lymph # (Auto) 1.6 10^3/uL (0.8-4.8) 06/07/21 10:20 Wilson # (Auto) 0.8 10^3/uL (0.2-0.9) 06/07/21 10:20 Eos # (Auto) 0.1 10^3/uL (0.0-0.8) 06/07/21 10:20 Baso # (Auto) 0.0 10^3/uL (0.0-0.1) 06/07/21 10:20 Nucleated RBC % (auto) 0.4 % 06/07/21 10:20 Nucleated RBCs # 0.0 /100WBC 06/07/21 10:20 APTT 37.1 SECONDS (23.9-36.7) H D 06/04/21 21:01 Specimen Type Arterial 06/03/21 12:55 Sample Site Radial, right 06/03/21 12:55 ABG pH 7.48 (7.35-7.45) H 06/03/21 12:55 ABG pCO2 30.7 mmHg (35-45) L 06/03/21 12:55 ABG pO2 55.4 mmHg (80.0-100.0) L 06/03/21 12:55 ABG HCO3 23.1 mmol/L (22-26) 06/03/21 12:55 ABG Base Excess 0.4 mmol/L (-2.0-2.0) 06/03/21 12:55 Harjeet Test Pos 06/03/21 12:55 Hematocrit 41.8 % (37-47) 06/03/21 12:55 O2 Delivery Device Nc 06/03/21 12:55 O2 Liters/Min 1.0 % 06/03/21 12:55 Tractor Operator ID [place] 06/03/21 12:55 Sodium 140 mmol/L (136-145) 06/07/21 10:20 Potassium 4.2 mmol/L (3.5-5.1) 06/07/21 10:20 Chloride 110 mmol/L (98-107) H 06/07/21 10:20 Carbon Dioxide 15 mmol/L (22-29) L 06/07/21 10:20 Anion Gap 19.2 (5-19) H 06/07/21 10:20 BUN 6 mg/dL (6-20) 06/07/21 10:20 Creatinine 0.5 mg/dL (0.5-0.9) 06/07/21 10:20 GFR Calculation 154.3 mL/min (90-130) H 06/07/21 10:20 Glucose 101 mg/dL (65-115) 06/07/21 10:20 Calculated Osmolality 288 mOsm/kg (285-295) 06/07/21 10:20 Calcium 8.3 mg/dL (8.5-10.5) L 06/07/21 10:20 Ferritin 225 ng/mL (15-150) H 06/03/21 12:50 Total Bilirubin 0.3 mg/dL (0.15-1.2) 06/07/21 10:20 AST 28 U/L (0-32) 06/07/21 10:20 ALT 19 U/L (0-33) 06/07/21 10:20 Alkaline Phosphatase 146 IU/L (35-105) H 06/07/21 10:20 Troponin T Baseline 63 ng/L (0-10) H 06/03/21 19:00 C-Reactive Protein 181.8 mg/L (0.0-4.9) H 06/05/21 03:17 NT-Pro-B Natriuret Pep 02635 pg/mL (0-125) H 06/03/21 12:50 NT-Pro-B Natriuret Pep Cancelled 06/03/21 12:50 Total Protein 5.6 g/dL (6.6-8.7) L 06/07/21 10:20 Albumin 2.9 g/dL (3.5-5.2) L 06/07/21 10:20 Globulin 2.7 g/dL (1.3-4.6) 06/07/21 10:20 Procalcitonin 0.18 ng/mL (0-0.5) 06/05/21 03:17 Urine Color [place] (Yellow) 06/04/21 13:24 Urine Appearance Sl hazy (CLEAR) 06/04/21 13:24 Urine pH 5 (5-7) 06/04/21 13:24 Ur Specific [place] 1.025 (1.005-1.030) 06/04/21 13:24 Urine Protein 1+ (Negative) H 06/04/21 13:24 Urine Glucose (UA) Norm (Normal) 06/04/21 13:24 Urine Ketones 1+ (Negative) H 06/04/21 13:24 Urine Blood 2+ (Negative) H 06/04/21 13:24 Urine Nitrate Negative (Negative) 06/04/21 13:24 Urine Bilirubin Neg (Negative) 06/04/21 13:24 Urine Urobilinogen 4 mg/dL (Negative) H 06/04/21 13:24 Ur Leukocyte Esterase Negative (Negative) 06/04/21 13:24 Urine RBC Rare /hpf (0-2) 06/04/21 02:52 Urine WBC 0-4 /hpf (0-5) H 06/04/21 02:52 Ur Squamous Epith Cells Rare /hpf (0-5) 06/04/21 02:52 Amorphous Sediment Not Reportable 06/04/21 02:52 Urine Bacteria Trace /hpf (NONE) 06/04/21 02:52 Vancomycin Trough 16.6 ug/mL (10-15) H 06/07/21 21:55 Carbamazepine 10.7 ug/mL (4.0-12.0) 06/03/21 12:50 Vitals Last Vital Signs Temp 99.2 F 06/08/21 08:46 Pulse 101 H 06/08/21 09:22 Resp 18 06/08/21 09:22 BP 130/86 06/08/21 08:46 Pulse Ox 94 06/08/21 09:22 Discharge Plan Discharge Patient Disposition: Home Condition: Stable Prescriptions: New Eliquis 5 mg Tablet 2.5 mg peg-tube BID@0900,2100 Qty: 90 0RF Continued (DME) [facility] Shellie-Med Msk Spacer See Rx Instructions .ROUTE .MEDSUPPLY Qty: 1 0RF Rx Instructions: As directed tizanidine 4 mg tablet 8 mg PO TID 30 Days Qty: 180 11RF baclofen 10 mg tablet 30 mg PO QID Qty: 360 8RF Rx Instructions: @04:00,12:00,18:00,22:00 albuterol sulfate [Ventolin HFA] 90 mcg/actuation HFA aerosol inhaler 2 puff INHALATION Q4H PRN (Reason: shortness of breath or wheezing) Qty: 6.7 2RF Flovent HFA 110 mcg/actuation HFA aerosol inhaler 2 puff INHALATION Q12H Qty: 12 5RF hydroxyzine HCl 10 mg/5 mL solution 50 mg PO BEDTIME 30 Days Qty: 750 5RF lactulose 20 gram/30 mL solution 20 g PO BID PRN (Reason: constipation) Qty: 1500 5RF trazodone 50 mg tablet 25 - 50 mg PO BEDTIME Qty: 60 5RF zafirlukast [Accolate] 10 mg tablet 20 mg PO BID Qty: 60 5RF Rx Instructions: must be taken on empty stomach, at least 1 hr before or 2 hrs after a meal/food (DME) G-tube See Rx Instructions .Route .MEDSUPPLY Qty: 1 0RF Rx Instructions: need large balloon to help prevent pulling out (DME) Hospital bed with full bed rails See Rx Instructions .Route .MEDSUPPLY Qty: 1 0RF Rx Instructions: Code E0260 use for 99 months albuterol sulfate 2.5 mg /3 mL (0.083 %) solution for nebulization 2.5 mg INHALATION Q6H PRN (Reason: shortness of breath or wheezing) Qty: 75 5 RF medroxyprogesterone [Depo-Provera] 150 mg/mL suspension 150 mg IM ONCE Qty: 1 3RF (DME) Bed rail full length See Rx Instructions .Route .MEDSUPPLY Qty: 1 0RF Rx Instructions: As directed Tegretol 100 mg/5 mL suspension See Rx Instructions .ROUTE .COMPLEX Qty: 450 0RF Dose Instruction: take 15ML BY MOUTH EVERY MORNING, 10ML AT NOON AND 15MLs in THE evening Rx Instructions: take 15ML BY MOUTH EVERY MORNING, 10ML AT NOON AND 15MLs in THE evening cholecalciferol (vitamin D3) 125 mcg (5,000 unit) capsule 125 mcg PO QAM 0RF cetirizine 5 mg/5 mL solution 5 mg PO BEDTIME 0RF Discharge Orders: Discharge Order (Routine); Ordered 06/08/21 Ordered By: Ian Atkins Other Ambulatory Orders: DME: Oxygen (Order) Location: None Selected Ordered By: Isrrael Whitlock Referrals: Roldan Guerrero, BRICK SIDING APPLICATOR-C [Primary Care Provider] - Patient Instructions: Opioid Safety Discharge Attestations Time Spent in Discharge Care*: greater than 30 min Status at Discharge: Cognitive status at discharge: severely impaired cognition , Behavioral status at discharge: cooperative , Quality Metrics Clinical Quality Measures [ No reported AMI, CVA or VTE this stay] Coding Level of Care Code Acute Chg FW DC note Diagnoses Pulmonary embolism associated with COVID-19 U07.1; I26.99 Pulmonary embolism I26.99 COVID-19 virus infection U07.1 Autism F84.0 Hypotension I95.9
--- NOTE | 2021-06-08 15:36 | PC.NURSE ---
Patients Mother given discharge orders, explained the effects of over suctioning, given an Eliquist for this evening dose due to [facility] being closed per charge nurse, and discussed follow up appoints. IV and Brown taken out at this time.
== END 2021-06-08 14:00 | disposition home or self-care (01) | DRG 163 ==
LOC: ER 20:25 → CCL 21:07 → ICU 06-04 00:57 → MEDSURG 06-06 13:10
PROVIDERS: Emergency Medicine; Family Medicine; Internal Medicine; Physician Assistant; Admitting Provider Internal Medicine Cardiovascular Disease; Emergency Provider Family Medicine; PCP Nurse Practitioner; Visit Provider Internal Medicine
PROC: B31T1ZZ Fluoroscopy of Left Pulmonary Artery using Low Osmolar Contrast (ICD-10-PCS; principal; 2021-06-03 22:00)
DX: I26.92 Saddle embolus of pulmonary artery without acute cor pulmonale (principal); U07.1 COVID-19; G80.0 Spastic quadriplegic cerebral palsy; F84.0 Autistic disorder; B37.0 Candidal stomatitis; G40.209 Localization-related (focal) (partial) symptomatic epilepsy and epileptic syndromes with complex partial seizures, not intractable, without status epilepticus; I95.9 Hypotension, unspecified; Z93.1 Gastrostomy status; J45.909 Unspecified asthma, uncomplicated; R00.0 Tachycardia, unspecified
CPT/HCPCS: 36013; 36415; 36600; 37184; 37187; 71045; 71275; 75746; 80048; 80053; 80156; 80202; 81001; 81003; 82728; 82803; 83880; 84145; 84484; 85014; 85018; 85025; 85347; 85730; 86140; 87040; 87086; 87150; 87205; 87210; 87641; 93005; 93306; 93970; 94640; 96365; 96366; 96367; 96372; 99291; C1760; C1769; C1887; C1894; J0743; J1450; J1644; J1650; J1940; J2250; J2704; J3010; J3370; J3490; J7030; J7040; J7050; J7626; Q9967

== ENCOUNTER 2021-09-14 19:25 | Inpatient (IN) | payer MEDICAID, SELFPAY ==
[2021-09-14] VITALS (12 sets, daily range): BP systolic 113–139; BP diastolic 82–106; PULSE 111–172; RESP 16–28; TEMP 36.6; O2SAT 91–95; BMI 30.9
[2021-09-14] MEDS: sodium chloride 0.9% 1,000 ML 999 ML IV ×2 (19:35→22:32)
[2021-09-14] MEDS: adenosine 3 mg/mL SDV 2mL 6 MG IVP (19:39)
[2021-09-14] MEDS: dilTIAZem 5 mg/mL SDV 5 mL 20 MG IVP ×2 (19:42→19:46)
--- NOTE | 2021-09-14 19:42 | W.ED.ARRPALP ---
HPI - Arrhythmia/Palpitations General: Chief Complaint: Arrhythmia/Palpitations Stated Complaint: svt Time Seen by Provider: 09/14/21 19:26 PFSH ED PFSH: Medical History Asthma due to environmental allergies Constipation COVID-19 virus infection G tube feedings Insomnia Overweight (BMI 25.0-29.9) Seasonal allergic rhinitis Spastic quadriplegic cerebral palsy Unspecified intellectual disabilities Urine incontinence Vitamin D deficiency Surgical History History of open reduction and internal fixation (ORIF) procedure Left femur at [facility] 02/28/21 History of tonsillectomy and adenoidectomy 2001 Hx of myringotomy 2001 Status post open reduction and internal fixation (ORIF) of fracture Family History Grandfather Diabetes Paternal grandfather Maternal grandfather Heart disease Maternal grandmother Mother Diabetes Hyperlipidemia Thyroid condition Grandmother Diabetes Paternal grandmother Maternal grandmother Hyperlipidemia Maternal grandmother Thyroid condition Maternal grandmother Paternal grandmother Other Cancer Hypertension Social History Smoking and tobacco status: never smoked Second hand smoke exposure: No Smoking risk assessment/counseling performed?: No Alcohol intake: never Desire information about alcohol rehabilitation?: No Counseling given: No Desire information about substance/drug rehabilitation?: No Counseling given: No Adopted: No Caregiver/support person: Yes Lives independently: No Household members: family Housing: House Marital status: Single Number of children: 0 service: No Current occupational status: disabled History of recent travel: No Sexually active: No Current gender identity: Female Course Vital Signs: Vital signs: Vital Signs Pulse Rate 172 H 09/14/21 19:30 Respiratory Rate 28 H 09/14/21 19:30 Blood Pressure 139/106 09/14/21 19:30 Pulse Oximetry 95 09/14/21 19:30 Discharge Plan Discharge Condition: Stable Prescriptions: No Action (DME) [employer] Shellie-Med Msk Spacer See Rx Instructions .ROUTE .MEDSUPPLY Qty: 1 0RF Rx Instructions: As directed tizanidine 4 mg tablet 8 mg PO TID 30 Days Qty: 180 11RF Flovent HFA 110 mcg/actuation HFA aerosol inhaler 2 puff INHALATION Q12H Qty: 12 5RF hydroxyzine HCl 10 mg/5 mL solution 50 mg PO BEDTIME 30 Days Qty: 750 5RF lactulose 20 gram/30 mL solution 20 g PO BID PRN (Reason: constipation) Qty: 1500 5RF trazodone 50 mg tablet 25 - 50 mg PO BEDTIME Qty: 60 5RF zafirlukast [Accolate] 10 mg tablet 20 mg PO BID Qty: 60 5RF Rx Instructions: must be taken on empty stomach, at least 1 hr before or 2 hrs after a meal/food (DME) G-tube See Rx Instructions .Route .MEDSUPPLY Qty: 1 0RF Rx Instructions: need large balloon to help prevent pulling out (DME) Hospital bed with full bed rails See Rx Instructions .Route .MEDSUPPLY Qty: 1 0RF Rx Instructions: Code E0260 use for 99 months Eliquis 5 mg tablet 2.5 mg peg-tube BID@0900,2100 Qty: 30 4RF albuterol sulfate 2.5 mg /3 mL (0.083 %) solution for nebulization 2.5 mg INHALATION Q6H PRN (Reason: shortness of breath or wheezing) Qty: 75 5RF (DME) Bed rail full length See Rx Instructions .Route .MEDSUPPLY Qty: 1 0RF Rx Instructions: As directed (DME) nebulizers Mis See Rx Instructions .ROUTE .MEDSUPPLY Qty: 1 0RF Rx Instructions: As directed (DME) Disposable nebulizer circuit with mask See Rx Instructions .ROUTE .MEDSUPPLY Qty: 1 2RF Rx Instructions: As directed Tegretol 100 mg/5 mL suspension See Rx Instructions .ROUTE .COMPLEX Qty: 450 3RF Dose Instruction: take 15ML BY MOUTH EVERY MORNING, 10ML AT NOON AND 15MLs in THE evening Rx Instructions: take 15ML BY MOUTH EVERY MORNING, 10ML AT NOON AND 15MLs in THE evening cholecalciferol (vitamin D3) 125 mcg (5,000 unit) capsule 125 mcg PO QAM Qty: 30 5RF cetirizine 5 mg/5 mL solution 5 mg PO BEDTIME Qty: 450 1RF albuterol sulfate [Ventolin HFA] 90 mcg/actuation HFA aerosol inhaler 2 puff INHALATION Q4H PRN (Reason: shortness of breath or wheezing) Qty: 6.7 2RF baclofen 10 mg tablet See Rx Instructions .ROUTE .COMPLEX Qty: 360 8RF Dose Instruction: TAKE THREE TABLETS BY MOUTH FOUR TIMES DAILY Rx Instructions: TAKE THREE TABLETS BY MOUTH FOUR TIMES DAILY medroxyprogesterone [Depo-Provera] 150 mg/mL suspension 150 mg IM ONCE Qty: 1 0RF Referrals: Roldan Guerrero, COMBAT INFORMATION CENTER OFFICER-C [Primary Care Provider] - Coding Level of Care Code ED Fire Extinguisher Repairer Inspector for Tobias Ayon
--- NOTE | 2021-09-14 19:45 | ECG_ITS ---
[facility] Test Date: 2021-09-14 Pat Name: Estephanie Choi Department: Room: [facility] Gender: Female Cross Tie Cutter: : 2000 Requested By: Risa Ross Order Number: [id number] Evan MD: Elton Bautista M.D. Measurements Intervals [place] Rate: 166 P: AR: QRS: -67 QRSD: 71 T: 14 QT: 228 QTc: 379 Interpretive Statements SinusTACHYCARDIA LEFT AXIS DEVIATION [QRS AXIS < -30] POSSIBLE ANTERIOR MYOCARDIAL INFARCTION , OF INDETERMINATE AGE [30 ms Q WAVE IN V3/V4, OR R < 0.2 mV IN V4] CRITICAL TEST RESULT Compared to ECG 06/04/2021 07:31:04 Left-axis deviation now present Sinus tachycardia no longer present Incomplete right bundle-branch block no longer present T-wave abnormality no longer present Possible ischemia no longer present Myocardial infarct finding still present Electronically Signed On 09-15-2021 21:32:52 CDT by Elton Bautista M.D. [email or web address]
--- NOTE | 2021-09-14 20:13 | CTR_ITS ---
PROCEDURE INFORMATION: Exam: CTA Chest With Contrast Exam date and time: 09/14/2021 9:13 PM Age: 20 years old Clinical indication: Abdominal tenderness; Prior surgery; Surgery date: 6+ months; Patient HX: Cp quadraplegic w HX of pe - svt and redness around peg tube; Additional info: Prior HX of massive pe/ possible g tube infection/complicati TECHNIQUE: Imaging protocol: Computed tomographic angiography of the chest with contrast. 3D rendering (Not supervised by radiologist): MIP and/or 3D reconstructed images were created by the technologist. Radiation optimization: All CT scans at this facility use at least one of these dose optimization techniques: automated exposure control; mA and/or kV adjustment per patient size (includes targeted exams where dose is matched to clinical indication); or iterative reconstruction. Contrast material: OMNI 350; Contrast volume: 95 ml; Contrast route: INTRAVENOUS (IV); COMPARISON: CT angio chest PE protcl [id number] 06/03/2021 5:34 PM RADIATION DOSE METRICS: Total DLP (mGy-cm): 1243.49 FINDINGS: Pulmonary arteries: No pulmonary embolus or aortic dissection. Aorta: See Pulmonary arteries finding. Lungs: Unremarkable. No consolidation. No masses. Pleural spaces: Mild left pleural fluid collection. Heart: Unremarkable. No cardiomegaly. No pericardial effusion. Mediastinal space: Peripheral atelectasis involving portions of the right upper lobe and superior segment right lower lobe with collapse of the lung against the mediastinum and posterior medial thorax. Lymph nodes: Unremarkable. No enlarged lymph nodes. Diaphragm: Elevation of the right hemidiaphragm consistent with eventration. Stomach and bowel: Right colonic interposition with the right colon between the diaphragm and liver. Bones/joints: Unremarkable. No acute fracture. Soft tissues: Unremarkable. PROCEDURE INFORMATION: Exam: CT Abdomen And Pelvis With Contrast Exam date and time: 09/14/2021 9:13 PM Age: 20 years old Clinical indication: Abdominal tenderness; Prior surgery; Surgery date: 6+ months; Patient HX: Cp quadraplegic w HX of pe - svt and redness around peg tube; Additional info: Prior HX of massive pe/ possible g tube infection/complicati TECHNIQUE: Imaging protocol: Computed tomography of the abdomen and pelvis with contrast. Radiation optimization: All CT scans at this facility use at least one of these dose optimization techniques: automated exposure control; mA and/or kV adjustment per patient size (includes targeted exams where dose is matched to clinical indication); or iterative reconstruction. Contrast material: OMNI 350; Contrast volume: 95 ml; Contrast route: INTRAVENOUS (IV); COMPARISON: CT angio chest PE protcl [id number] 06/03/2021 5:34 PM RADIATION DOSE METRICS: Total DLP (mGy-cm): 1243.49 FINDINGS: Tubes, catheters and devices: Enteric tube tip is over the antrum of the stomach (distal stomach). Percutaneous G-tube in place. Liver: Normal. No mass. Gallbladder and bile ducts: Normal. No calcified stones. No ductal dilation. Pancreas: Normal. No ductal dilation. Spleen: Normal. No splenomegaly. Adrenal glands: Normal. No mass. Kidneys and ureters: Normal. No hydronephrosis. Stomach and bowel: Moderate bowel thickening of the rectum consistent with moderate proctitis. Prominent air-filled hepatic flexure under the right hemidiaphragm consistent with colonic interposition. Dilated loops of small bowel up to 4.6 cm in diameter consistent with ileus versus enteritis versus occult obstruction. No obvious transition point is identified. Appendix: No evidence of appendicitis. Intraperitoneal space: Unremarkable. No free air. No significant fluid collection. Vasculature: Unremarkable. No abdominal aortic aneurysm. Lymph nodes: Unremarkable. No enlarged lymph nodes. Urinary bladder: Unremarkable as visualized. Reproductive: Unremarkable as visualized. Bones/joints: Unremarkable. No acute fracture. Soft tissues: Unremarkable. CT/CT angio chest w abd pel w con IMPRESSION: 1. Elevation of the right hemidiaphragm consistent with eventration. 2. Peripheral atelectasis involving portions of the right upper lobe and superior segment right lower lobe with collapse of the lung against the mediastinum and posterior medial thorax. 3. Right colonic interposition with the right colon between the diaphragm and liver. 4. Mild left pleural fluid collection. 5. No pulmonary embolus or aortic dissection. IMPRESSION: 1. Moderate bowel thickening of the rectum consistent with moderate proctitis. 2. Percutaneous G-tube in place. 3. Prominent air-filled hepatic flexure under the right hemidiaphragm consistent with colonic interposition. 4. Dilated loops of small bowel up to 4.6 cm in diameter consistent with ileus versus enteritis versus occult obstruction. No obvious transition point is identified.
--- NOTE | 2021-09-14 20:25 | XRR_ITS ---
PROCEDURE INFORMATION: Exam: XR Chest Exam date and time: 09/14/2021 8:43 PM Age: 20 years old Clinical indication: Device placement; Ng tube; Dyspnea; Additional info: Eval pna TECHNIQUE: Imaging protocol: XR of the chest. Views: 1 view. COMPARISON: CR XR chest 1V portable [id number] 06/03/2021 12:41 PM FINDINGS: Tubes, catheters and devices: Enteric tube coiled over the stomach with tip over the distal gastric body. Lungs: Unremarkable. No consolidation. Pleural spaces: Unremarkable. No pleural effusion. No pneumothorax. Heart/Mediastinum: Unremarkable. No cardiomegaly. Diaphragm: Dilated air-filled hepatic flexure under the elevated right hemidiaphragm consistent with eventration and colonic interposition. Bones/joints: Levoscoliosis. XR/XR chest 1V portable [id number] IMPRESSION: 1. Dilated air-filled hepatic flexure under the elevated right hemidiaphragm consistent with eventration and colonic interposition. 2. Enteric tube coiled over the stomach with tip over the distal gastric body.
--- NOTE | 2021-09-14 20:29 | ED_ITS ---
HPI - General Adult General: Chief complaint: Arrhythmia/Palpitations Stated complaint: svt Time Seen by Provider: 09/14/21 19:26 History of Present Illness: Patient is a 20-year-old female with a history of cerebral palsy, prior massive PE requiring thrombectomy currently on Eliquis, G tube dependence presenting to the emergency room with new onset altered mental status and fast heart rate. Per family, patient has become more altered today not acting like herself. At baseline, patient is able to move her hands and excitement. However patient has been noted to be different compared to baseline. Patient received feeding through G-tube at 4 AM, 9 AM and 12 AM earlier today. Patient's family noticed that the patient was having a hard fast heart rate on the pulse ox and called EMS and patient was brought here. In route, EMS noted the patient was had a heart rate between 160-1 90. Patient received 6 mg adenosine en route. On arrival, patient is altered and history is limited. Patient is noted to be in atrial flutter with heart rate in the 160s. 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 Seasonal allergic rhinitis Spastic quadriplegic cerebral palsy Unspecified intellectual disabilities Urine incontinence Vitamin D deficiency Surgical History History of open reduction and internal fixation (ORIF) procedure Left femur at [facility] 02/28/21 History of tonsillectomy and adenoidectomy 2001 Hx of myringotomy 2001 Status post open reduction and internal fixation (ORIF) of fracture Family History Grandfather Diabetes Paternal grandfather Maternal grandfather Heart disease Maternal grandmother Mother Diabetes Hyperlipidemia Thyroid condition Grandmother Diabetes Paternal grandmother Maternal grandmother Hyperlipidemia Maternal grandmother Thyroid condition Maternal grandmother Paternal grandmother Other Cancer Hypertension Social History Smoking and tobacco status: never smoked Second hand smoke exposure: No Smoking risk assessment/counseling performed?: No Alcohol intake: never Desire information about alcohol rehabilitation?: No Counseling given: No Desire information about substance/drug rehabilitation?: No Counseling given: No Adopted: No Caregiver/support person: Yes Lives independently: No Household members: family Housing: House Marital status: Single Number of children: 0 service: No Current occupational status: disabled History of recent travel: No Sexually active: No Current gender identity: Female Physical Exam HENMT: COMMON NORMALS: atraumatic HEAD & SCALP: atraumatic MOUTH: moist mucous membranes abnormal and other (+mouth gaping) Eye: COMMON NORMALS: conjunctivae normal CONJUNCTIVA: Yes conjunctivae normal Neck/C-Spine: COMMON NORMALS: full ROM and supple Resp: COMMON NORMALS: normal respiratory effort OTHER: +decreased breath sounds b/l Cardio: RATE: tachycardic GI: COMMON NORMALS: Soft to palpation PALPATION: Yes Soft to palpation OTHER: + Mild erythema around the G-tube site and significant gastric content leaking around the G tube site Extremity: COMMON NORMALS: full ROM Neuro: SENSORIUM/ORIENTATION: Yes obtunded and Yes stuporous OTHER: +unable to assess given AMS Psych: OTHER: +unable to assess give nAMS Skin: OTHER: mild erythema around the G tube site Course Vital Signs: Vital signs: Vital Signs Temperature 99.4 F 09/15/21 08:00 Pulse Rate 139 H 09/15/21 08:30 Respiratory Rate 32 H 09/15/21 08:30 Blood Pressure 113/73 09/15/21 08:30 Pulse Oximetry 98 09/15/21 08:30 MDM - General Adult Medical Decision Making 20-year-old female history of prior massive PE s/p thrombectomy currently on Eliquis, G-tube dependence, cerebral palsy presenting to emergency room with new onset altered mental status and fast heart rate. On physical exam, patient is noted to be in sinus tachycardia to the 160s. EKG showed atrial flutter. Patient received 40 mg of diltiazem with mild transient improvement in heart rate. Patient received 10 mg metoprolol, 2 L of fluids and 250 mcg of digoxin. Her heart rate initially improved to the 110s but now is tachycardic to the 130s in atrial flutter. Patient is currently on Cardizem drip currently at 5 mg/hr. WAYLON chest abdomen pelvis showed no PE. Patient's noted to have enlarged small bowel measuring 4.6 cm. G-tube appears to be intact in position. I have discu ssed case with Dr. Walton who will follow the patient. We will cover empirically with antibiotics for erythema around the G-tube site. There is concerns that there may be G-tube malfunction give peristoma leakage. Dr. Walton was consulted and will be following patient for this. In addition, Dr. Walton will follow patient for possible occult small bowel obstruction. Patient has NG tube with drainage of about 1.7 L of gastric content in the ED. Disposition: ICU Lab Data : 09/15/21 02:48 09/15/21 02:48 Radiology Impressions Chest/Abdomen/Pelvis CT 09/14/21 20:13 IMPRESSION: 1. Elevation of the right hemidiaphragm consistent with eventration. 2. Peripheral atelectasis involving portions of the right upper lobe and superior segment right lower lobe with collapse of the lung against the mediastinum and posterior medial thorax. 3. Right colonic interposition with the right colon between the diaphragm and liver. 4. Mild left pleural fluid collection. 5. No pulmonary embolus or aortic dissection. IMPRESSION: 1. Moderate bowel thickening of the rectum consistent with moderate proctitis. 2. Percutaneous G-tube in place. 3. Prominent air-filled hepatic flexure under the right hemidiaphragm consistent with colonic interposition. 4. Dilated loops of small bowel up to 4.6 cm in diameter consistent with ileus versus enteritis versus occult obstruction. No obvious transition point is identified. KUB X-Ray 09/15/21 06:00 IMPRESSION: Nonspecific small and large bowel dilatation as above. Compatible with ileus. Chest X-Ray 09/15/21 06:39 IMPRESSION: Reduction in the redundancy of the nasogastric tube. The tip is presumably within the body or antrum of the stomach. Laboratory Results WBC 9.8 10^3/uL (4.0-10.0) 09/14/21 20:25 RBC 5.86 10^6/uL (4.1-5.3) H 09/14/21 20:25 Hgb 16.1 g/dL (11.5-15.3) H 09/14/21 20: Hct 50.3 % (37.0-47.0) H 09/14/21 20: MCV 85.8 fl (81-99) 09/14/21 20: MCH 27.5 pg (28.0-34.0) L 09/14/21: MCHC 32.0 g/dL (30.0-36.0) 09/14/21: RDW 13.8 % (12.1-15.1) 09/14/21: Plt Count 442 10^3/cmm (130-400) H 09/14/21: MPV 9.6 fL (7.4-10.4) 09/14/21 20: Neut % (Auto) 69.8 % 09/14/21 20: Lymph % (Auto) 10.6 % 09/14/21: [place] % (Auto) 19.0 % 09/14/21 20: Eos % (Auto) 0.0 % 09/14/21: Baso % (Auto) 0.3 % 09/14/21: Neut # (Auto) 6.82 10^3/uL (1.8-7.7) 09/14/21: Lymph # (Auto) 1.0 10^3/uL (0.8-4.8) 09/14/21: [place] # (Auto) 1.9 10^3/uL (0.2-0.9) H 09/14/21: Eos # (Auto) 0.0 10^3/uL (0.0-0.8) 09/14/21: Baso # (Auto) 0.0 10^3/uL (0.0-0.1) 09/14/21: Nucleated RBC % (auto) 0 % 09/14/21: Nucleated RBCs # 0.0 /100WBC 09/14/21: D-Dimer 8.05 ug/mIFEU (0-0.59) H 09/14/21 20: Sodium 146 mmol/L (136-145) H 09/14/21 20:25 Potassium 4.2 mmol/L (3.5-5.1) 09/14/21 20:25 Chloride 116 mmol/L (98-107) H 09/14/21 20:25 Carbon Dioxide 16 mmol/L (22-29) L 09/14/21 20:25 Anion Gap 18.2 (5-19) 09/14/21 20:25 BUN 25 mg/dL (6-20) H 09/14/21 20:25 Creatinine 0.6 mg/dL (0.5-0.9) 09/14/21 20:25 GFR Calculation 125.0 mL/min (90-130) 09/14/21 20:25 Glucose 153 mg/dL (65-115) H 09/14/21 20:25 Calculated Osmolality 309 mOsm/kg (285-295) H 09/14/21 20:25 Lactate 1.0 mmol/L (0.5-2.2) 09/14/21 20:25 Calcium 9.2 mg/dL (8.5-10.5) 09/14/21: Magnesium 2.2 mg/dL (1.7-2.3) 09/14/21 20:25 Total Bilirubin 0.2 mg/dL (0.15-1.2) 09/14/21 20:25 AST 24 U/L (0-32) 09/14/21 20: ALT 33 U/L (0-33) 09/14/21 20:25 Alkaline Phosphatase 104 IU/L (35-105) 09/14/21 20:25 Troponin T Baseline 10 ng/L (0-10) 09/14/21 20: Troponin T 120 Minute 6.64 ng/L (0-10) 09/14/21 22:30 Delta Troponin T Not Reportable 09/14/21 22:30 Total Protein 6.9 g/dL (6.6-8.7) 09/14/21 20: Albumin 4.0 g/dL (3.5-5.2) 09/14/21 20:25 Globulin 2.9 g/dL (1.3-4.6) 09/14/21 20:25 Lipase 8 U/L (13-60) L 09/14/21 20:25 Procalcitonin 0.51 ng/mL (0-0.5) H 09/14/21 22:30 TSH 1.17 uIU/mL (0.27-4.20) 09/14/21 20:25 Free T4 0.69 ng/dL (0.82-1.77) L 09/14/21 20:25 Urine Color Yellow (Yellow) 09/14/21 20:43 Urine Appearance Clear (CLEAR) 09/14/21 20:43 Urine pH 5 (5-7) 09/14/21 20:43 Ur Specific [place] 1.025 (1.005-1.030) 09/14/21 20:43 Urine Protein 3+ (Negative) H 09/14/21 20:43 Urine Glucose (UA) Norm (Normal) 09/14/21 20:43 Urine Ketones Negative (Negative) 09/14/21 20:43 Urine Blood 3+ (Negative) H 09/14/21 20:43 Urine Nitrate Negative (Negative) 09/14/21 20:43 Urine Bilirubin 1+ (Negative) H 09/14/21 20:43 Urine Urobilinogen Norm mg/dL (Negative) 09/14/21 20:43 Ur Leukocyte Esterase Negative (Negative) 09/14/21 20:43 Urine RBC 10-15 /hpf (0-2) H 09/14/21 20:43 Urine WBC 0-4 /hpf (0-5) H 09/14/21 20:43 Ur Squamous Epith Cells 5-10 /hpf (0-5) H 09/14/21 20:43 Amorphous Sediment 1+ /hpf 09/14/21 20:43 Urine Bacteria 1+ /hpf (NONE) H 09/14/21 20:43 Hyaline Casts 10-15 /lpf H 09/14/21 20:43 Imaging Data Other Imaging: Radiologist's impression: [address] [address] [address] Scan Report Signed Patient: Estephanie Choi Unit #: [id number] : 2000 Age/Sex: 20 / F ADM Date: 09/14/21 Loc: ER Room/Bed: Attending Dr: Ordering Provider/Ordering MD: Risa Ross MD Date of Service: 09/14/21 Procedure(s): CT angio chest w abd pel w con Accession Number(s): [id number] Report Number: [id number] PROCEDURE INFORMATION: Exam: CTA Chest With Contrast Exam date and time: 09/14/2021 9:13 PM Age: 20 years old Clinical indication: Abdominal tenderness; Prior surgery; Surgery date: 6+ months; Patient HX: Cp quadraplegic w HX of pe - svt and redness around peg tube; Additional info: Prior HX of massive pe/ possible g tube infection/complicati TECHNIQUE: Imaging protocol: Computed tomographic angiography of the chest with contrast. 3D rendering (Not supervised by radiologist): MIP and/or 3D reconstructed images were created by the technologist. Radiation optimization: All CT scans at this facility use at least one of these dose optimization techniques: automated exposure control; mA and/or kV adjustment per patient size (includes targeted exams where dose is matched to clinical indication); or iterative reconstruction. Contrast material: OMNI 350; Contrast volume: 95 ml; Contrast route: INTRAVENOUS (IV);? COMPARISON: CT angio chest PE protcl [id number] 06/03/2021 5:34 PM RADIATION DOSE METRICS: Total DLP (mGy-cm): 1243.49 FINDINGS: Pulmonary arteries: No pulmonary embolus or aortic dissection. Aorta: See Pulmonary arteries finding. Lungs: Unremarkable. No consolidation. No masses. Pleural spaces: Mild left pleural fluid collection. Heart: Unremarkable. No cardiomegaly. No pericardial effusion. Mediastinal space: Peripheral atelectasis involving portions of the right upper lobe and superior segment right lower lobe with collapse of the lung against the mediastinum and posterior medial thorax. Lymph nodes: Unremarkable. No enlarged lymph nodes. Diaphragm: Elevation of the right hemidiaphragm consistent with eventration. Stomach and bowel: Right colonic interposition with the right colon between the diaphragm and liver. Bones/joints: Unremarkable. No acute fracture. Soft tissues: Unremarkable. PROCEDURE INFORMATION: Exam: CT Abdomen And Pelvis With Contrast Exam date and time: 09/14/2021 9:13 PM Age: 20 years old Clinical indication: Abdominal tenderness; Prior surgery; Surgery date: 6+ months; Patient HX: Cp quadraplegic w HX of pe - svt and redness around peg tube; Additional info: Prior HX of massive pe/ possible g tube infection/complicati TECHNIQUE: Imaging protocol: Computed tomography of the abdomen and pelvis with contrast. Radiation optimization: All CT scans at this facility use at least one of these dose optimization techniques: automated exposure control; mA and/or kV adjustment per patient size (includes targeted exams where dose is matched to clinical indication); or iterative reconstruction. Contrast material: OMNI 350; Contrast volume: 95 ml; Contrast route: INTRAVENOUS (IV);? COMPARISON: CT angio chest PE protcl [id number] 06/03/2021 5:34 PM RADIATION DOSE METRICS: Total DLP (mGy-cm): 1243.49 FINDINGS: Tubes, catheters and devices: Enteric tube tip is over the antrum of the stomach (distal stomach). Percutaneous G-tube in place. Liver: Normal. No mass. Gallbladder and bile ducts: Normal. No calcified stones. No ductal dilation. Pancreas: Normal. No ductal dilation. Spleen: Normal. No splenomegaly. Adrenal glands: Normal. No mass. Kidneys and ureters: Normal. No hydronephrosis. Stomach and bowel: Moderate bowel thickening of the rectum consistent with moderate proctitis. Prominent air-filled hepatic flexure under the right hemidiaphragm consistent with colonic interposition. Dilated loops of small bowel up to 4.6 cm in diameter consistent with ileus versus enteritis versus occult obstruction. No obvious transition point is identified. Appendix: No evidence of appendicitis. Intraperitoneal space: Unremarkable. No free air. No significant fluid collection. Vasculature: Unremarkable. No abdominal aortic aneurysm. Lymph nodes: Unremarkable. No enlarged lymph nodes. Urinary bladder: Unremarkable as visualized. Reproductive: Unremarkable as visualized. Bones/joints: Unremarkable. No acute fracture. Soft tissues: Unremarkable. CT/CT angio chest w abd pel w con IMPRESSION: 1. Elevation of the right hemidiaphragm consistent with eventration. 2. Peripheral atelectasis involving portions of the right upper lobe and superior segment right lower lobe with collapse of the lung against the mediastinum and posterior medial thorax. 3. Right colonic interposition with the right colon between the diaphragm and liver. 4. Mild left pleural fluid collection. 5. No pulmonary embolus or aortic dissection. ? ? IMPRESSION: 1. Moderate bowel thickening of the rectum consistent with moderate proctitis. 2. Percutaneous G-tube in place. 3. Prominent air-filled hepatic flexure under the right hemidiaphragm consistent with colonic interposition. 4. Dilated loops of small bowel up to 4.6 cm in diameter consistent with ileus versus enteritis versus occult obstruction. No obvious transition point is identified. ? Dictated By: Owen Cosby MD Signed By: Owen Cosby MD Signed Date/Time: 09/14/212213 DD/ 12 Critical Care Time Critical Care Time: Critical Care Time: Yes Total Critical Care Time: 35 Attestation: The high probability of a clinically significant, sudden or life threatening deterioration of the patient's cardiovascular symptoms system(s) required my full and direct attention, intervention and personal management. The critical care time is as shown. This time is in addition to time spent performing any reported procedures but includes the following: [x] Data and vital sign review and interpretation [x] Patient assessment, examination and intervention [x] Documentation [x] Medication orders and management Discharge Plan Discharge Patient Disposition: Admitted As Inpatient Admit Provider: Benny Samaniego Clinical Impression: Atrial flutter, Altered mental status, Skin infection at gastrostomy tube site, Ileus, Malfunction of gastrostomy tube Condition: Stable Coding Level of Care Code ED Hunter Trapper for Chg Fwd Exam Comprehensive
[2021-09-14] MEDS: digoxin 250 mcg/ml INJ 2 mL IVP (20:32)
[2021-09-14] MEDS: metoprolol tartrate 1 mg/1 mL SDV 5 mL 10 MG IVP (20:33)
[2021-09-14 20:36] LABS: Basophils % 0.3 %; Hematocrit 50.3 % (37.0-47.0); Hemoglobin 16.1 g/dL (11.5-15.3); Lymphocytes % 10.6 %; Mean Corpuscular Hemoglobin 27.5 pg (28.0-34.0); Mean Corpuscular Volume 85.8 fl (81-99); Mean Platelet Volume 9.6 fL (7.4-10.4); Monocytes # 1.9 10^3/uL (0.2-0.9); Neutrophils # 6.82 10^3/uL (1.8-7.7); Neutrophils % 69.8 %; Nucleated Red Blood Cells % 0 %; Platelet Count 442 10^3/cmm (130-400); Red Blood Count 5.86 10^6/uL (4.1-5.3); Red Cell Distribution Width 13.8 % (12.1-15.1); White Blood Count 9.8 10^3/uL (4.0-10.0)
[2021-09-14 20:54] LABS: Troponin(5th) Baseline 10 ng/L (0-10)
[2021-09-14 20:59] LABS: D Dimer 8.05 ug/mIFEU (0-0.59)
[2021-09-14 21:05] LABS: Alanine Aminotransferase 33 U/L (0-33); Alkaline Phosphatase 104 IU/L (35-105); Anion Gap 18.2 (5-19); Aspartate Amino Transferase 24 U/L (0-32); Blood Urea Nitrogen 25 mg/dL (6-20); Calcium 9.2 mg/dL (8.5-10.5); Carbon Dioxide 16 mmol/L (22-29); Chloride 116 mmol/L (98-107); Free T4 Free Thyroxine 0.69 ng/dL (0.82-1.77); Globulin 2.9 g/dL (1.3-4.6); Glucose 153 mg/dL (65-115); Lipase 8 U/L (13-60); Magnesium 2.2 mg/dL (1.7-2.3); Osmolality Calculated 309 mOsm/kg (285-295); Potassium 4.2 mmol/L (3.5-5.1); Sodium 146 mmol/L (136-145); Thyroid Stimulating Hormone 1.17 uIU/mL (0.27-4.20); Total Bilirubin 0.2 mg/dL (0.15-1.2); Total Protein 6.9 g/dL (6.6-8.7)
[2021-09-14] MEDS: iohexol 350 mg/mL 100 mL Btl IV (21:20)
[2021-09-14 21:25] LABS: Add Urine Microscopic? YES; Bilirubin Urine 1+ (Negative); Blood Urine 3+ (Negative); Glucose Urine UA Norm (Normal); Ketones Urine Negative (Negative); Leukocyte Esterase Urine Negative (Negative); Nitrate Urine Negative (Negative); Protein Urine 3+ (Negative); Specific Gravity, Urine 1.025 (1.005-1.030); Urine Appearance Clear (CLEAR); Urine Color Yellow (Yellow); Urobilinogen Urine Norm (Negative); pH Urine 5 (5-7)
[2021-09-14 21:26] LABS: WBC Urine 0-4 /hpf (0-5)
[2021-09-14 21:27] LABS: Add Urine Culture? Yes; Amorphous Sediment Urine 1+ /hpf; Bacteria Urine 1+ /hpf
[2021-09-14 21:31] LABS: Slide Review Slide Review Perform
--- NOTE | 2021-09-14 21:45 | ECG_ITS ---
[facility] Test Date: 2021-09-14 Pat Name: Estephanie Choi Department: Room: [facility] Gender: Female Light Cleaner: : 2000 Requested By: Risa Ross Order Number: [id number] Evan MD: Elton Bautista M.D. Measurements Intervals [place] Rate: 166 P: [place]: QRS: -67 QRSD: 71 T: 14 QT: 228 QTc: 379 Interpretive Statements Sinus tachycardia LEFT AXIS DEVIATION [QRS AXIS < -30] POSSIBLE ANTERIOR MYOCARDIAL INFARCTION , OF INDETERMINATE AGE [30 ms Q WAVE IN V3/V4, OR R < 0.2 mV IN V4] CRITICAL TEST RESULT Compared to ECG 06/04/2021 07:31:04 Left-axis deviation now present Sinus tachycardia no longer present Incomplete right bundle-branch block no longer present T-wave abnormality no longer present Possible ischemia no longer present Myocardial infarct finding still present Electronically Signed On 09-15-2021 21:39:05 CDT by Elton Bautista M.D. [email or web address]
--- NOTE | 2021-09-14 22:54 | P.HP_ITS ---
Providers/Chief Complaint Admitting Physician: Benny Samaniego MD Primary Care Provider: Roldan Guerrero, ADOLESCENT COORDINATOR-C Chief Complaint: svt History of Present Illness Estephanie Choi is a 20 year old female who has a history of partial epilepsy, spastic quadriplegia, saddle embolism status post thrombectomy has been on Eliquis, suffered from hypoxia related to COVID-19 and saddle embolism, required 2 L of oxygen at baseline, cerebral palsy, communicates via gestures and sounds presented today with chief complaint of increased output from PEG tube and worsening of confusion. Patient cannot provide any history, mother is at the bedside who is stating that he was in her usual state of health until today when she noticed that she was not able to reciprocate, they noticed a lot of output from PEG tube, lately her stools were little harder than usual. She normally gets tube feeds every 4 hours with 120 mL of water flushes and sometimes apple juice. When EMS arrived she was in tachycardia, SVT, she was given 2 doses of adenosine, and then she was treated for atrial flutter 2-1, digoxin and Cardizem bolus, heart rate was in 170s, she was put on Cardizem drip In the ER noticed increased output from her PEG tube, as per the nursing staff almost 1.5 L was suctioned and NG tube and there was roughly 300 to 400 mL pouring out of her PEG tube Diagnostic work-up in the ER revealed hemoconcentration, dehydration, normal anion gap acidosis She was started on fluids, received cefepime and metronidazole along vancomycin IMPRESSION: 1. Elevation of the right hemidiaphragm consistent with eventration. 2. Peripheral atelectasis involving portions of the right upper lobe and superior segment right lower lobe with collapse of the lung against the mediastinum and posterior medial thorax. 3. Right colonic interposition with the right colon between the diaphragm and liver. 4. Mild left pleural fluid collection. 5. No pulmonary embolus or aortic dissection. ? ? IMPRESSION: 1. Moderate bowel thickening of the rectum consistent with moderate proctitis. 2. Percutaneous G-tube in place. 3. Prominent air-filled hepatic flexure under the right hemidiaphragm consistent with colonic interposition. 4. Dilated loops of small bowel up to 4.6 cm in diameter consistent with ileus versus enteritis versus occult obstruction. No obvious transition point is identified. ? Review of Systems General: Reports: ROS unobtainable due to mental status Medications/Allergies Home Medications Medication Instructions Recorded Confirmed Last Taken Type inhalat.spacing dev,med. mask #1 each 05/24/19 08/22/21 Unknown Rx ([facility]) Hospital bed with full bed rails #1 ea 08/01/20 08/22/21 Unknown Rx albuterol sulfate 2.5 mg (3 mL) INHALATION Q6H PRN 10/04/20 08/22/21 Unknown Rx #75 ml tizanidine 4 mg tablet 8 mg PO TID 30 Days #180 tab 11/25/20 08/22/21 02/27/21 12:00 Rx G-tube #1 ea 12/14/20 08/22/21 Unknown Rx Bed rail full length #1 ea 03/07/21 08/22/21 Unknown Rx fluticasone propionate 110 2 puff INHALATION Q12H #12 gm 05/19/21 08/22/21 Unknown Rx mcg/actuation HFA aerosol inhaler (Flovent HFA) hydroxyzine HCl 10 mg/5 mL oral 50 mg (25 mL) PO BEDTIME 30 Days 05/19/21 08/22/21 Unknown Rx solution #750 ml lactulose 20 gram/30 mL oral 20 g (30 mL) PO BID PRN #1500 ml 05/19/21 08/22/21 Unknown Rx solution trazodone 50 mg tablet 25 - 50 mg PO BEDTIME #60 tab 05/19/21 08/22/21 Unknown Rx zafirlukast 10 mg tablet (Accolate) 20 mg PO BID #60 tab 05/19/21 08/22/21 Unknown Rx Disposable nebulizer circuit with #1 ea 06/11/21 08/22/21 Unknown Rx mask nebulizers #1 ea 06/11/21 08/22/21 Unknown Rx apixaban 5 mg tablet (Eliquis) 2.5 mg PEG-TUBE BID@0900,2100 #30 06/20/21 08/22/21 Unknown Rx tab Tegretol 100 mg/5 mL oral See Rx Instructions .ROUTE 07/01/21 08/22/21 Unknown Rx suspension (carbamazepine) .COMPLEX #450 milliliter NS cholecalciferol (vitamin D3) 125 125 mcg PO QAM #30 cap 07/01/21 08/22/21 Unknown Rx mcg (5,000 unit) capsule cetirizine 5 mg/5 mL oral solution 5 mg (5 mL) PO BEDTIME #450 ml 07/13/21 08/22/21 Unknown Rx albuterol sulfate 90 mcg/actuation 2 puff INHALATION Q4H PRN #6.7 gm 07/30/21 08/22/21 Unknown Rx aerosol inhaler (Ventolin HFA) baclofen 10 mg tablet See Rx Instructions .ROUTE 08/26/21 Unknown Rx .COMPLEX #360 tab medroxyprogesterone 150 mg/mL 150 mg IM ONCE #1 ml 09/09/21 Unknown Rx intramuscular suspension (Depo-Provera) Allergies Allergy/AdvReac Type Severity Reaction Status Date / Time azithromycin [From Zithromax] Allergy Unknown Verified 06/03/21 11:08 cephalexin [From Keflex] Allergy Unknown Verified 06/03/21 11:08 ibuprofen Allergy ADR-Gastrointestinal Verified 06/03/21 11:08 Upset lactose Allergy Unknown Verified 06/03/21 11:08 levofloxacin [From Levaquin] Allergy ALGY-Rash Verified 06/03/21 11:08 Penicillins Allergy Unknown Verified 06/03/21 11:08 pineapple Allergy Unknown Verified 06/03/21 11:08 Sulfa (Sulfonamide Allergy ALGY-Rash Verified 06/03/21 11:08 Antibiotics) PFSH Acute 2 PFSH: Medical History (Updated 09/15/21 @ 00:01 by Benny Samaniego MD) Asthma due to environmental allergies Constipation COVID-19 virus infection G tube feedings Insomnia Overweight (BMI 25.0-29.9) 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 Seasonal allergic rhinitis Spastic quadriplegic cerebral palsy Unspecified intellectual disabilities Urine incontinence Vitamin D deficiency Surgical History History of open reduction and internal fixation (ORIF) procedure Left femur at [facility] 02/28/21 History of tonsillectomy and adenoidectomy 2001 Hx of myringotomy 2001 Status post open reduction and internal fixation (ORIF) of fracture Family History Grandfather Diabetes Paternal grandfather Maternal grandfather Heart disease Maternal grandmother Mother Diabetes Hyperlipidemia Thyroid condition Grandmother Diabetes Paternal grandmother Maternal grandmother Hyperlipidemia Maternal grandmother Thyroid condition Maternal grandmother Paternal grandmother Other Cancer Hypertension Social History Smoking and tobacco status: never smoked Second hand smoke exposure: No Smoking risk assessment/counseling performed?: No Alcohol intake: never Desire information about alcohol rehabilitation?: No Counseling given: No Desire information about substance/drug rehabilitation?: No Counseling given: No Adopted: No Caregiver/support person: Yes Lives independently: No Household members: family Housing: House Marital status: Single Number of children: 0 service: No Current occupational status: disabled History of recent travel: No Sexually active: No Current gender identity: Female Vitals/I&O/Wt Last Vital Signs Pulse 121 H 09/14/21 21:43 Resp 16 09/14/21 21:43 BP 117/85 09/14/21 21:43 Pulse Ox 94 09/14/21 21:43 09/14/21 09/14/21 09/14/21 06:59 14:59 22:59 Intake Total 1000 / 1000 Balance 1000 / 1000 Weight last 48 hrs Weight 81.647 kg Physical Exam Narrative: Spastic quadriplegic Patient is nonverbal Lot of erythema noticed around the PEG tube, PEG tube discoloration noted Nonpurulent cellulitis Skin maceration Edema of lower extremities noted Abdomen without active bowel sounds Bilateral breath sounds with rhonchi Currently on 2 L nasal cannula Patient is tachypneic Not able to communicate Neuro exam is limited Abdomen is slightly distended however soft Variable S1-S2 Brown catheter draining clear urine Urinary Catheter Management: Brown: Cath Placed During This Visit: yes Urinary Catheter Date of Insertion: 09/14/21 Urinary Catheter Time of Insertion: 20:40 Data : 09/14/21 20:25 09/14/21 20:25 Micro: Microbiology 09/14/21 20:56 Blood Culture - Preliminary Blood SPECIMEN COLLECTED 09/14/21 20:56 Blood Culture - Preliminary Blood SPECIMEN COLLECTED A&P Assessment and plan (1) Atrial flutter: Status: Acute (2) Skin infection at gastrostomy tube site: Status: Acute (3) Altered mental status: Status: Acute (4) Ileus: Status: Acute (5) Malfunction of gastrostomy tube: Status: Acute Plan Metabolic encephalopathy with increased output from the PEG tube Related to dehydration Ileus It is very difficult to assess her neurological status Consider CT scan of head once like to more stable Held Eliquis Start IV fluids along antibiotics No signs of UTI Elevation of right hemidiaphragm consistent with eventration atelectasis of lung, no signs of PE or aortic dissection She does have 4.6 cm dilated loops of small bowel, check C. difficile panel Moderate thickening of rectum consistent with proctitis NG tube to suction, 2 L output noted, at risk of contraction alkalosis She will stay n.p.o. for now She will stay on D5 half-normal saline SVT, atrial flutter She received 2 doses of adenosine For atrial flutter she received Cardizem IV push and then started Cardizem drip Holding anticoagulating agent for now in anticipation of any surgical interv ention if needed Potassium is normal, check magnesium level, thyroid panel noted Recent echo revealed EF 55% normal diastolic dysfunction, troponin unremarkable Chronic hypoxia: Hypoxia has not worsened currently still requiring [address] Walton is consulted and notified He is aware of all the CT findings N.p.o. Patient is full code goals of care discussed with her mother DVT prophylaxis: SCDs GI prophylaxis with Protonix Admit to ICU Attestations Medical Necessity Statement*: Patient is at risk of deterioration, need ICU management, anticipating more than 2 midnight stay in the hospital Time Spent in Patient Care: 40mins Coding Level of Care Code Acute Business Administration Professor for [facility] Fwd Diagnoses Atrial flutter I48.92 Skin infection at gastrostomy tube site K94.22; L08.9 Altered mental status R41.82 Ileus K56.7 Malfunction of gastrostomy tube K94.23
[2021-09-14 23:01] LABS: Troponin 5 2HR 6.64 ng/L (0-10)
[2021-09-15] VITALS (74 sets, daily range): BP systolic 95–136; BP diastolic 56–99; PULSE 95–147; RESP 19–34; TEMP 36.8–37.8; O2SAT 86–100
[2021-09-15 00:21] LABS: Procalcitonin 0.51 ng/mL (0-0.5)
--- NOTE | 2021-09-15 00:23 | PC.PHAR ---
Pharmacokinetic dosing service Date: 09/15/21 Time: 23 Objective: Patient: Estephanie Choi Floor: ICU-5 Age: 20 yo Serum creatinine: 0.6 mg/dL Height: 64.0 Inches Weight (kg): 81.647 Diagnosis: Relevant medical/social history: Cultures and sensitivities: Other labs: Assessment: IBW (kg): 54.70 Dosing wt(kg): 81.647 Estimated Creatinine clearance (ml/min): 127.0 CRCL method: Cockcroft and Gault using ibw(default). Drug selected: Vancomycin Loading dose (mg): 0 Vd (liters): 73.5 (factor used: 0.9 L/kg) Damian (hr-1): 0.110 Half life (hrs): 6.30 Recommended dose: 1250 mg Interval: 8 hrs Infusion time (hrs): 1.5 Predicted peak (mcg/mL): 26.8 Predicted trough (mcg/mL): 13.11 Total body weight is being used for vancomycin dosing. Renal function is stable [ ] /unstable [ ] Recommendations: Give Vancomycin 1250 mg q 8 hrs with an expected Cpeak of 26.8 mcg/ml and an expected Ctrough of 13.11 mcg/ml Renal dosing of other antibiotics (review renal dosing of other medications and list guidelines here): Thank you for the consult, will continue to follow. Signature: Susan Cisse [facility]
[2021-09-15 00:24] LABS: Glucose Point of Care 152 mg/dL (70-110)
[2021-09-15] MEDS: metroNIDAZOLE IV 500 MG/100 ML PREMIX 100 MG IV (01:16)
--- NOTE | 2021-09-15 01:45 | ECG_ITS ---
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 Measurements Intervals [place] Rate: 166 P: [place]: QRS: -67 QRSD: 71 T: 14 QT: 228 QTc: 379 Interpretive Statements Possible ectopic atrial tachycardia LEFT AXIS DEVIATION [QRS AXIS < -30] POSSIBLE ANTERIOR MYOCARDIAL INFARCTION , OF INDETERMINATE AGE [30 ms Q WAVE IN V3/V4, OR R < 0.2 mV IN V4] CRITICAL TEST RESULT Compared to ECG 06/04/2021 07:31:04 Left-axis deviation now present Sinus tachycardia no longer present Incomplete right bundle-branch block no longer present T-wave abnormality no longer present Possible ischemia no longer present Myocardial infarct finding still present Electronically Signed On 09-15-2021 21:40:01 CDT by Elton Bautista M.D. [id number]
[2021-09-15] MEDS: vancomycin 1,250 MG/250 ML PIGGYBACK 250 MG IV ×3 (02:16→17:32)
[2021-09-15 02:57] LABS: Basophils % 0.4 %; Eosinophils % 0.1 %; Hematocrit 50.8 % (37.0-47.0); Lymphocytes # 1.3 10^3/uL (0.8-4.8); Lymphocytes % 17.4 %; Mean Corpuscular HGB Conc 31.5 g/dL (30.0-36.0); Mean Corpuscular Hemoglobin 27.3 pg (28.0-34.0); Mean Corpuscular Volume 86.7 fl (81-99); Mean Platelet Volume 9.7 fL (7.4-10.4); Monocytes # 1.2 10^3/uL (0.2-0.9); Monocytes % 15.7 %; Neutrophils # 5.06 10^3/uL (1.8-7.7); Neutrophils % 66.1 %; Nucleated Red Blood Cells % 0 %; Platelet Count 425 10^3/cmm (130-400); Red Blood Count 5.86 10^6/uL (4.1-5.3); White Blood Count 7.7 10^3/uL (4.0-10.0)
[2021-09-15 03:14] LABS: C Reactive Protein 92.2 mg/L (0.0-4.9); Magnesium 2.1 mg/dL (1.7-2.3); Phosphorus 3.5 mg/dL (2.5-4.5)
[2021-09-15 03:17] LABS: Lactate (Lactic Acid level) 1.1 mmol/L (0.5-2.2)
[2021-09-15] MEDS: aztreonam 2,000 MG in sodium chloride 0.9% (plus) 100 ML 200 MG IV (03:17)
[2021-09-15 03:20] LABS: Slide Review Slide Review Perform
[2021-09-15 03:30] LABS: Alanine Aminotransferase 32 U/L (0-33); Albumin Level 3.9 g/dL (3.5-5.2); Alkaline Phosphatase 103 IU/L (35-105); Anion Gap 20.1 (5-19); Aspartate Amino Transferase 22 U/L (0-32); Blood Urea Nitrogen 20 mg/dL (6-20); Calcium 9.3 mg/dL (8.5-10.5); Carbon Dioxide 17 mmol/L (22-29); Chloride 112 mmol/L (98-107); Globulin 3.2 g/dL (1.3-4.6); Glomerular Filtration Rate 199.6 mL/min (90-130); Glucose 182 mg/dL (65-115); Osmolality Calculated 307 mOsm/kg (285-295); Potassium 4.1 mmol/L (3.5-5.1); Sodium 145 mmol/L (136-145); Total Bilirubin 0.2 mg/dL (0.15-1.2); Total Protein 7.1 g/dL (6.6-8.7)
--- NOTE | 2021-09-15 06:00 | XR_ITS ---
WS: [id number] XR KUB portable [id number] REASON FOR EXAM: ileus FINDINGS: Gastrostomy tube in the left upper quadrant. Moderately dilated transverse colon, 6.5 cm in diameter, and hepatic flexure with liver right diaphra gm interposition of the hepatic flexure. Multiple loops of moderately significantly small bowel, 3.8 cm in diameter. No free air or retroperitoneal air. No mass identified. No significant calcification seen. XR/XR KUB portable [id number] IMPRESSION: Nonspecific small and large bowel dilatation as above. Compatible with ileus.
--- NOTE | 2021-09-15 06:39 | XR_ITS ---
WS: [id number] XR chest 1V portable [id number] REASON FOR EXAM: NG tube placement FINDINGS: Compared to previous examination of 09/14/2021 there appears to been retraction of the nasogastric tube reducing the redundancy over the body the stomach. Presumably the tip lies within the body or antral portion of the stomach. Gastrostomy tube again identified. Significant gaseous distention of the hepatic flexure with interposition. No free air identified. XR/XR chest 1V portable [id number] IMPRESSION: Reduction in the redundancy of the nasogastric tube. The tip is presumably with in the body or antrum of the stomach.
--- NOTE | 2021-09-15 07:13 | PM.CONSULT ---
Providers/Reason For Consult Consulting Physician/Specialty*: Vicente Walton MD Reason for Consult*: Concern for bowel obstruction Requesting Physician: Dr. Ross Attending Physician: Benny Samaniego MD Primary Care Provider: KODY Chacon History of Present Illness History of Present Illness Chief Complaint: Altered mental status History of present illness: Ms. Estephanie Choi is a 20 year old female patient with history of partial epilepsy, spastic quadriplegia, saddle embolism status post thrombectomy has been on Eliquis, suffered from hypoxia related to COVID-19 and saddle embolism, required 2 L of oxygen at baseline, cerebral palsy, communicates via gestures and sounds. Patient presented to the emergency department with history of increased output from the G-tube particularly a Rogerio button that was replaced about 4 months ago. Seems that the patient had altered mental status and she was found to have supraventricular tachycardia. Patient undergone blood work that did not show much significant concern except that the patient does show to be dehydrated. Further work-up was done in the form of CT chest abdomen and pelvis and that did show: 1. Elevation of the right hemidiaphragm consistent with eventration. 2. Peripheral atelectasis involving portions of the right upper lobe and superior segment right lower lobe with collapse of the lung against the mediastinum and posterior medial thorax. 3. Right colonic interposition with the right colon between the diaphragm and liver. 4. Mild left pleural fluid collection. 5. No pulmonary embolus or aortic dissection. Also there was mention some irritation around the G-tube concerning for infection and thus general surgery was consulted for further evaluation Review of Systems General: Reports: ROS unobtainable due to medical condition Medications/Allergies Home Medications Medication Instructions Recorded Confirmed Last Taken Type inhalat.spacing dev,med. mask #1 each 05/24/19 09/15/21 Unknown Rx ([facility]) Hospital bed with full bed rails #1 ea 08/01/20 09/15/21 Unknown Rx albuterol sulfate 2.5 mg (3 mL) INHALATION Q6H PRN 10/04/20 09/15/21 Unknown Rx #75 ml tizanidine 4 mg tablet 8 mg PO TID 30 Days #180 tab 11/25/20 09/15/21 02/27/21 12:00 Rx G-tube #1 ea 12/14/20 09/15/21 Unknown Rx Bed rail full length #1 ea 03/07/21 09/15/21 Unknown Rx fluticasone propionate 110 2 puff INHALATION Q12H #12 gm 05/19/21 09/15/21 Unknown Rx mcg/actuation HFA aerosol inhaler (Flovent HFA) hydroxyzine HCl 10 mg/5 mL oral 50 mg (25 mL) PO BEDTIME 30 Days 05/19/21 09/15/21 Unknown Rx solution #750 ml lactulose 20 gram/30 mL oral 20 g (30 mL) PO BID PRN #1500 ml 05/19/21 09/15/21 Unknown Rx solution trazodone 50 mg tablet 25 - 50 mg PO BEDTIME #60 tab 05/19/21 09/15/21 Unknown Rx Disposable nebulizer circuit with #1 ea 06/11/21 09/15/21 Unknown Rx mask nebulizers #1 ea 06/11/21 09/15/21 Unknown Rx apixaban 5 mg tablet (Eliquis) 2.5 mg PEG-TUBE BID@0900,2100 #30 06/20/21 09/15/21 Unknown Rx tab Tegretol 100 mg/5 mL oral See Rx Instructions .ROUTE 07/01/21 09/15/21 Unknown Rx suspension (carbamazepine) .COMPLEX #450 milliliter NS cholecalciferol (vitamin D3) 125 125 mcg PO QAM #30 cap 07/01/21 09/15/21 Unknown Rx mcg (5,000 unit) capsule cetirizine 5 mg/5 mL oral solution 5 mg (5 mL) PO BEDTIME #450 ml 07/13/21 09/15/21 Unknown Rx albuterol sulfate 90 mcg/actuation 2 puff INHALATION Q4H PRN #6.7 gm 07/30/21 09/15/21 Unknown Rx aerosol inhaler (Ventolin HFA) baclofen 10 mg tablet 40 mg PO QID 09/15/21 09/15/21 Unknown History medroxyprogesterone 150 mg/mL 150 mg IM Q90D 09/15/21 09/15/21 Unknown History intramuscular suspension (Depo-Provera) zafirlukast 20 mg tablet 20 mg PO BID 09/15/21 09/15/21 Unknown History Allergies Allergy/AdvReac Type Severity Reaction Status Date / Time azithromycin [From Zithromax] Allergy Unknown Verified 09/15/21 14:40 cephalexin [From Keflex] Allergy Unknown Verified 09/15/21 14:40 ibuprofen Allergy ADR-Gastrointestinal Verified 09/15/21 14:40 Upset lactose Allergy Unknown Verified 09/15/21 14:40 levofloxacin [From Levaquin] Allergy ALGY-Rash Verified 09/15/21 14:40 Penicillins Allergy Unknown Verified 09/15/21 14:40 pineapple Allergy Unknown Verified 09/15/21 14:40 Sulfa (Sulfonamide Allergy ALGY-Rash Verified 09/15/21 14:40 Antibiotics) Current Medications Generic Name Dose Route Start Last Admin Trade Name Freq PRN Reason Stop Dose Admin Diltiazem HCl 100 mg/ Dextrose 100 mls @ 5 mls/hr 09/14/21 20:00 09/15/21 01:28 IV 15 mg/hr .Q20H ESTHELA 15 mls/hr Administration 5 MG/HR Dextrose/Sodium Chloride 1,000 mls @ 100 mls/hr 09/14/21 23:45 09/15/21 00:00 Dextrose 5%-Sod Chloride 0.45% IV 100 mls/hr .Q10H ESTHELA Administration Aztreonam 2,000 mg/ Sodium 100 mls @ 200 mls/hr 09/15/21 02:30 09/15/21 03:48 Chloride IV Infused Q12H ESTHELA Infusion Protocol Vancomycin/PEG/NADA/Lysine/Water 1,250 mg in 250 mls @ 250 mls/hr 09/15/21 01:00 09/15/21 03:17 Vancocin IV Infused Q8H ESTHELA Infusion PFSH Acute PFSH: Medical History Asthma due to environmental allergies Constipation COVID-19 virus infection G tube feedings Insomnia Overweight (BMI 25.0-29.9) 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 Seasonal allergic rhinitis Spastic quadriplegic cerebral palsy Unspecified intellectual disabilities Urine incontinence Vitamin D deficiency Surgical History History of open reduction and internal fixation (ORIF) procedure Left femur at [facility] 02/28/21 History of tonsillectomy and adenoidectomy 2002 Hx of myringotomy 2002 Status post open reduction and internal fixation (ORIF) of fracture Family History Grandfather Diabetes Paternal grandfather Maternal grandfather Heart disease Maternal grandmother Mother Diabetes Hyperlipidemia Thyroid condition Grandmother Diabetes Paternal grandmother Maternal grandmother Hyperlipidemia Maternal grandmother Thyroid condition Maternal grandmother Paternal grandmother Other Cancer Hypertension Social History Smoking and tobacco status: never smoked Second hand smoke exposure: No Smoking risk assessment/counseling performed?: No Alcohol intake: never Desire information about alcohol rehabilitation?: No Counseling given: No Desire information about substance/drug rehabilitation?: No Counseling given: No Adopted: No Caregiver/support person: Yes Lives independently: No Household members: family Housing: House Marital status: Single Number of children: 0 service: No Current occupational status: disabled History of recent travel: No Sexually active: No Current gender identity: Female Vitals/I&O/Wt Last Vital Signs Temp 98.3 F 09/15/21 03:15 Pulse 146 H 09/15/21 06:15 Resp 25 H 09/15/21 06:00 BP 136/99 09/15/21 06:15 Pulse Ox 95 09/15/21 06:15 09/14/21 09/15/21 09/15/21 22:59 06:59 14:59 Intake Total 1000 / 1000 526.5 / 1526.5 Output Total 380 / 380 Balance 1000 / 1000 146.5 / 1146.5 Weight last 48 hrs Weight 180 lb Physical Exam Const: COMMON NORMALS: apparent distress (Mild to moderate distress) and negative for patient oriented x3 (Awake but not oriented) GENERAL APPEARANCE: cooperative ORIENTATION/CONSCIOUSNESS: Yes awake, Yes oriented to person, Yes oriented to place and Yes oriented to time HENMT: COMMON NORMALS: normocephalic HEAD & SCALP: normocephalic Eye: COMMON NORMALS: Equal, round and reactive pupils present and no scleral icterus PUPIL: Yes Equal, round and reactive pupils present Lymph: LYMPHATIC: no lymphadenopathy noted Chest: COMMONS NORMALS: normal inspection of the chest Resp: COMMON NORMALS: normal respiratory effort and clear to auscultation bilaterally AUSCULTATION: clear to auscultation bilaterally Cardio: COMMON NORMALS: S1 normal heart sound present and S2 normal heart sound present; negative for No murmurs present (Cardio) HEART SOUNDS: S1 normal heart sound present and S2 normal heart sound present GI: COMMON NORMALS: Soft to palpation; negative for No hepatosplenomegaly present INSPECTION: Yes normal to inspection PALPATION: Yes Soft to palpation, No Firmness to palpation present (GI), No Tenderness to palpation present (GI), No Guarding due to palpation present (GI), No Rigid due to palpation, No No hepatosplenomegaly present and Yes Other GI palpation findings present (Rogerio button in place with some irritation around the tube) Neuro: COMMON NORMALS: negative for patient oriented x3 (Awake but not oriented) SENSORIUM/ORIENTATION: Yes oriented to person, Yes oriented to place and Yes oriented to time Psych: COMMON NORMALS: mental status grossly normal Skin: COMMON NORMALS: no rashes or lesions noted GENERAL SKIN EXAM: no rashes or lesions noted Urinary Catheter Management: Brown: Cath Placed During This Visit: yes Reason for Continuing Indwelling Catheter: Accurate Measurement of Urinary Output in Critically Ill Patients Urinary Catheter Date of Insertion: 09/14/21 Urinary Catheter Time of Insertion: 20:40 Data : 09/15/21 02:48 09/15/21 02:48 Micro: Microbiology 09/14/21 20:56 Blood Culture - Preliminary Blood SPECIMEN COLLECTED 09/14/21 20:56 Blood Culture - Preliminary Blood SPECIMEN COLLECTED A&P Assessment and plan (1) Skin infection at gastrostomy tube site: From surgical standpoint of view patient would benefit from cleansing of the skin with alcohol swabs and application of zinc oxide cream as needed followed by DuoDERM to protect the skin from further excoriation. If patient continues to have an issue with the Rogerio button she may be switched to longer 1 or replacement of the G-tube instead. Status: Suspected (2) Ileus: Likely the patient is constipated and that could explain why she has a lot of NG output. After limited history taking physical examination and reviewing the CT scan with my personal interpretation. I do believe that the patient is chronically constipated likely a milk and molasses enema would add a benefit to the patient. Please call for further concerns or questions Status: Acute Consult Attestations Medical Necessity Statement: Per admitting service Coding Level of Care Code Acute District Recruiter for [facility] Fwd Exam Comprehensive Diagnoses Skin infection at gastrostomy tube site K94.22; L08.9 Ileus K56.7
--- NOTE | 2021-09-15 07:13 | PC.NURSE ---
Patient arrived to ICU 5 on via bed with portable monitoring. NG tube in place. Patient is tachycardic. 2 liters oxygen NS oxygen sats 94. Patient has pressure ulcer upon admission (see wound assessment). Hair is matted, skin is dirty, mouth is extremely dry with lips and tongue cracked open. Oral care was performed. Full bed bath with hair washed.
[2021-09-15] MEDS: pantoprazole 40 mg SDV IVP ×2 (08:59→17:32)
[2021-09-15] MEDS: dextrose 5%-sod chloride 0.45% 1,000 ML 100 ML IV ×4 (09:00→19:36)
--- NOTE | 2021-09-15 09:05 | PC.PHAR ---
pts mother chan [phone] verified pts medications-pts mother states the pt takes baclofen 40mg (4 tabs) qid-rx written and filled on 08/26/21 for 30mg (3 tabs) qid-notes are made in the pharmacy comments
[2021-09-15] MEDS: sodium chloride 0.9% 1,000 ML 999 ML IV (09:16)
--- NOTE | 2021-09-15 10:22 | PC.CHAP ---
Pastoral Care Encounter/Spiritual Assessment Type of Contact [] Declined manager product management visit [] Patient/Family/Request visit [] Outpatient visit [] Follow-up visit [] Physician referral [] Code/Alert [x] Routine visit [] Staff referral [] Actively dying [x] Patient sleeping [] Family support [] [] Out of room [] Palliative care [] [] Receiving care in room [] Pre-surgical visit [] Trauma [] Long length of stay [x] ICU visit [] Other: Relational/Emotional Strength [] Patient feels connected with others/family/visitors/staff [] Distress [] Loneliness/isolation [] Abandonment Spirituality of Patient [] Person of Valerie [] Attends Baptism of their Valerie [] Believes in Prayer [] Reads Bible or Sikhism materials [] There are Spiritual issues to be addressed Is Project Manager Interventions [x] Prayer [] Active listening [] Non-anxious presence [] Spiritual/emotional support [] Crisis/trauma care [] Spiritual counseling [] Bereavement support [] Provided bereavement packet [] Provided Bible/devotional materials [] Provided toy/stuffed animal, coloring book to patient or family member [] Provided Communion [] Anointing/[place] [] Salvation [x] Completed spiritual assessment [] Other: Impact on Illness or Injury [] Angry [] Fearful [] Anxious [] Often cries [] Exhaustion [] Unable to work [] Unable to attend bahai [] Unable to walk/stand [] Unable to read [] Unable to drive [] Unable to eat/drink [] Unable to sleep [] Unable to be with family [] Patient intubated [] Other: Summary Time spent with patient
[2021-09-15] MEDS: sodium chloride 0.9% 500 ML 999 ML IV (14:39)
--- NOTE | 2021-09-15 15:08 | PC.NURSE ---
Pt was admitted to ICU at 1400 via bed on room air. She is alert to self only and has many wounds. On the top of right foot is a large blister filled with fluid, the right heel has an unstageable ulcer, bilateral arms are covered in bruises and groin area is excoriated. Significant other is at bedside and refused to answer any questions for pt and he took all belongings home.
--- NOTE | 2021-09-15 17:07 | PM.PN ---
Subjective Subjective: Patient was seen and examined this morning continued to be in a flutter with RVR, with heart rate ranging into 140s to 150s, patient is extremely dehydrated, will bolus her with 1.5 L normal saline, continue with maintenance normal saline, Continue Cardizem drip for now. Medications: Medication Review Details: Generic Name Dose Route Start Last Admin Trade Name Lorenzoq PRN Reason Stop Dose Admin Diltiazem HCl 100 mg/ Dextrose 100 mls @ 5 mls/h r 09/14/21 20:00 09/15/21 08:58 IV 15 mg/hr .Q20H ESTHELA 15 mls/hr Administration 5 MG/HR Dextrose/Sodium Ch loride 1,000 mls @ 100 m ls/hr 09/14/21 23:45 09/15/21 09:00 Dextrose 5%-Sod Chloride 0.45% IV 100 mls/hr .Q10H ESTHELA Administration Vancomycin/PEG/NAD A/Lysine/Water 1,250 mg in 250 m ls @ 250 mls/hr 09/15/21 01:00 09/15/21 17:32 Vancocin IV 250 mls/hr Q8H ESTHELA Administration Imipenem/Cilastati n Sodium 500 100 mls @ 200 mls /hr 09/15/21 08:00 09/15/21 14:39 mg/ Sodium Chlor austin IV 200 mls/hr Q6H ESTHELA Administration Protocol Pantoprazole Sodiu m 40 mg 09/15/21 09:00 09/15/21 17:32 Pantoprazole 40 Mg Sdv IVP 40 mg BID ESTHELA Administration Vitals/I&O/Wt Last Vital Signs Temp 99.4 F 09/15/21 08:00 Pulse 130 H 09/15/21 16:00 Resp 32 H 09/15/21 16:00 BP 119/69 09/15/21 16:00 Pulse Ox 100 09/15/21 16:00 09/15/21 09/15/21 09/15/21 06:59 14:59 22:59 Intake Total 526.5 / 1526.5 1166.6 / 1166.6 Output Total 380 / 380 Balance 146.5 / 1146.5 1166.6 / 1166.6 Weight last 48 hrs Weight 81.647 kg Physical Exam HENMT: COMMON NORMALS: normocephalic and atraumatic HEAD & SCALP: normocephalic and atraumatic Eye: GENERAL EYE: appearance normal, both eyes and all related structures Chest: COMMONS NORMALS: normal inspection of the chest and normal palpation of entire chest wall CHEST: Yes Symmetrical chest wall rise Resp: COMMON NORMALS: normal respiratory effort, No retractions, No use of accessory muscles and clear to auscultation bilaterally EFFORT & INSPECTION: Yes symmetric chest movement AUSCULTATION: clear to auscultation bilaterally Cardio: COMMON NORMALS: regular rate, regular rhythm, S1 normal heart sound present, S2 normal heart sound present, No gallops present (Cardio), No murmurs present (Cardio), No rub (Cardio) and Peripheral pulses 2+ throughout RATE: regular rate RHYTHM: regular rhythm HEART SOUNDS: S1 normal heart sound present and S2 normal heart sound present PERIPHERAL PULSES: Peripheral pulses 2+ throughout GI: COMMON NORMALS: Normal to inspection, nondistended, normoactive bowel sounds present, Soft to palpation, non-tender, No hepatosplenomegaly present and no masses AUSCULTATION: Yes normoactive bowel sounds PALPATION: Yes Soft to palpation and Yes No hepatosplenomegaly present RECTAL EXAM: deferred OTHER: PEG tube site is erythematous Extremity: COMMON NORMALS: no clubbing, cyanosis or edema and no pedal edema Urinary Catheter Management: Brown: Cath Placed During This Visit: yes Reason for Continuing Indwelling Catheter: Accurate Measurement of Urinary Output in Critically Ill Patients Urinary Catheter Date of Insertion: 09/14/21 Urinary Catheter Time of Insertion: 20:40 Data : 09/15/21 02:48 09/15/21 02:48 Micro: Microbiology 09/14/21 20:56 Blood Culture - Preliminary Blood SPECIMEN COLLECTED 09/14/21 20:56 Blood Culture - Preliminary Blood SPECIMEN COLLECTED A&P Assessment and plan (1) Atrial flutter: Status: Acute (2) Skin infection at gastrostomy tube site: Status: Suspected (3) Altered mental status: Status: Acute (4) Ileus: Status: Acute (5) Malfunction of gastrostomy tube: Status: Acute Plan 20 year old female who has a history of partial epilepsy, spastic quadriplegia, saddle embolism status post thrombectomy has been on Eliquis, suffered from hypoxia related to COVID-19 and saddle embolism, required 2 L of oxygen at baseline, cerebral palsy, communicates via gestures and sounds presented today with chief complaint of increased output from PEG tube and worsening of confusion. Assessment: Atrial flutter with RVR: Recent echo revealed EF 55% normal diastolic dysfunction. Troponin trend unremarkable Received adenosine in the ER Currently on Cardizem drip Will initiate Eliquis Continue telemetry monitoring Monitor electrolytes Chronic constipation: Currently on bowel regimen Metabolic encephalopathy with increased output from the PEG tube: Increase PEG tube output likely secondary to constipation. CT abdomen and pelvis with contrast:Moderate bowel thickening of the rectum consistent with moderate proctitis. Dilated loops of small bowel up to 4.6 cm in diameter consistent with ileus versus enteritis versus occult obstruction. No obvious transition point is identified. Follow blood culture Empirically on broad-spectrum antibiotics N.p.o. IV hydration Surgery on board Chronic hypoxia: Hypoxia has not worsened currently still requiring 2 L of oxygen History of pulmonary embolism: On Eliquis at home CODE STATUS: Full code DVT prophylaxis: SCDs GI prophylaxis with Protonix Attestations Medical Necessity Statement*: Patient is still in hospital for management of A.flutter with RVR. Time Spent in Patient Care: Greater than 35 minutes (>than 50% of time spent in counselling and/or direct pt care on unit). Critical Care Time: The high probability of a clinically significant, sudden or life threatening deterioration of the patient's [] system(s) required my full and direct attention, intervention and personal management. The critical care time is as shown. This time is in addition to time spent performing any reported procedures but includes the following: [x] Data and vital sign review and interpretation [x] Patient assessment, examination and intervention [x] Documentation [x] Medication orders and management Critical Care Time (min): 50 Coding Level of Care Code Acute Garbage Collector Supervisor for Chg Fwd Diagnoses Atrial flutter I48.92 Skin infection at gastrostomy tube site K94.22; L08.9 Altered mental status R41.82 Ileus K56.7 Malfunction of gastrostomy tube K94.23
--- NOTE | 2021-09-15 18:23 | PC.NURSE ---
Pt had a moderate bowel movement after 2 enemas. Also remains on Cardizem drip with HR in 120's.
--- NOTE | 2021-09-15 19:09 | PC.NURSE ---
Large scabbed area is noted to the roof of mouth area that bleeds intermittently. Oral care done per orders.
--- NOTE | 2021-09-15 21:15 | XRR_ITS ---
PROCEDURE INFORMATION: Exam: XR Abdomen Exam date and time: 09/15/2021 9:23 PM Age: 20 years old Clinical indication: Device placement; Gi device; Nasogastric tube; Additional info: Ng placement TECHNIQUE: Imaging protocol: XR of the abdomen. Views: Frontal supine view of the abdomen. 1 View. COMPARISON: CR XR KUB portable [id number] 09/15/2021 5:48 AM FINDINGS: Tubes, catheters and devices: There is a nasogastric tube in place with its tip in the stomach. Gastrostomy tube is seen overlying the stomach. Gastrointestinal tract: Compared with the earlier examination at 5:51 a.m., there is decrease in bowel distention. Bones/joints: Unremarkable. XR/XR KUB portable [id number] IMPRESSION: Nasogastric tube is in the stomach.
[2021-09-16] VITALS (79 sets, daily range): BP systolic 105–164; BP diastolic 60–135; PULSE 61–132; RESP 18–31; TEMP 37.2–37.5; O2SAT 90–100
[2021-09-16] MEDS: vancomycin 1,250 MG/250 ML PIGGYBACK 250 MG IV ×3 (00:25→16:12)
[2021-09-16 01:13] LABS: Basophils % 0.4 %; Eosinophils # 0.1 10^3/uL (0.0-0.8); Hematocrit 41.1 % (37.0-47.0); Hemoglobin 12.8 g/dL (11.5-15.3); Lymphocytes # 1.8 10^3/uL (0.8-4.8); Lymphocytes % 19.5 %; Mean Corpuscular HGB Conc 31.1 g/dL (30.0-36.0); Mean Corpuscular Hemoglobin 27.4 pg (28.0-34.0); Mean Platelet Volume 9.3 fL (7.4-10.4); Monocytes # 1.3 10^3/uL (0.2-0.9); Monocytes % 14.1 %; Neutrophils # 5.91 10^3/uL (1.8-7.7); Neutrophils % 64.7 %; Nucleated Red Blood Cells % 0 %; Platelet Count 345 10^3/cmm (130-400); Red Blood Count 4.67 10^6/uL (4.1-5.3); Red Cell Distribution Width 14.1 % (12.1-15.1); White Blood Count 9.1 10^3/uL (4.0-10.0)
[2021-09-16 01:33] LABS: Alanine Aminotransferase 19 U/L (0-33); Albumin Level 2.8 g/dL (3.5-5.2); Alkaline Phosphatase 84 IU/L (35-105); Anion Gap 14.6 (5-19); Aspartate Amino Transferase 16 U/L (0-32); Blood Urea Nitrogen 10 mg/dL (6-20); Calcium 8.1 mg/dL (8.5-10.5); Carbon Dioxide 18 mmol/L (22-29); Chloride 109 mmol/L (98-107); Globulin 3.1 g/dL (1.3-4.6); Glomerular Filtration Rate 444.2 mL/min (90-130); Glucose 126 mg/dL (65-115); Osmolality Calculated 287 mOsm/kg (285-295); Potassium 3.6 mmol/L (3.5-5.1); Sodium 138 mmol/L (136-145); Total Bilirubin 0.2 mg/dL (0.15-1.2); Total Protein 5.9 g/dL (6.6-8.7)
[2021-09-16 01:54] LABS: Slide Review Slide Review Perform
[2021-09-16] MEDS: dextrose 5%-sod chloride 0.45% 1,000 ML 100 ML IV (05:10)
[2021-09-16] MEDS: peg /e-lyte soln 4,000 mL Btl 4000 ML PO (06:36)
[2021-09-16] MEDS: pantoprazole 40 mg SDV IVP ×2 (08:50→17:52)
--- NOTE | 2021-09-16 09:09 | ECG_ITS ---
[facility] Test Date: 2021-09-16 Pat Name: Estephanie Choi Department: Room: ICU05 Gender: Female Concrete Conveyor Operator: : 2000 Requested By: Jose L Rodriguez Order Number: [id number] Evan MD: Mehul Howard M.D. Measurements Intervals [place] Rate: 107 P: 38 MS: 147 QRS: -28 QRSD: 86 T: 35 QT: 267 QTc: 358 Interpretive Statements SINUS TACHYCARDIA LOW QRS VOLTAGE IN PRECORDIAL LEADS [QRS DEFLECTION < 1.0 mV IN CHEST LEADS] POSSIBLE ANTERIOR MYOCARDIAL INFARCTION , PROBABLY OLD [30 ms Q WAVE IN V3/V4, OR R < 0.2 mV IN V4] Compared to ECG 09/14/2021 19:38:53 Low QRS voltage now present Left-axis deviation no longer present Myocardial infarct finding still present Electronically Signed On 09-16-2021 17:30:59 CDT by Mehul Howard M.D. [id number]
--- NOTE | 2021-09-16 11:26 | PM.PN ---
Subjective Subjective: Patient overall seems to be in a more stable status. Produced some bowel movements yet small after enemas Medications: Reviewed: Yes Vitals/I&O/Wt Last Vital Signs Temp 99.5 F 09/16/21 08:00 Pulse 101 H 09/16/21 08:30 Resp 28 H 09/16/21 08:30 BP 120/79 09/16/21 08:30 Pulse Ox 94 09/16/21 08:30 09/15/21 09/16/21 09/16/21 22:59 06:59 14:59 Intake Total 4650 / 6066.6 1406.667 / 7473.267 Output Total 500 / 500 900 / 1400 Balance 4150 / 5566.6 506.667 / 6073.267 Weight last 48 hrs Weight 180 lb Physical Exam Narrative: Patient is conscious alert No apparent distress BMI 31 Head and neck examination PERRLA no masses no cervical lymphadenopathy no jaundice Abdomen nontender nondistended soft no organomegaly guarding or rigidity/no signs of peritonitis Rogerio button in place with minimal skin excoriation around Urinary Catheter Management: Brown: Cath Placed During This Visit: yes Reason for Continuing Indwelling Catheter: Accurate Measurement of Urinary Output in Critically Ill Patients Urinary Catheter Date of Insertion: 09/14/21 Urinary Catheter Time of Insertion: 20:40 Data : 09/17/21 06:35 09/17/21 06:35 Micro: Microbiology 09/14/21 20:43 Urine Culture - Preliminary Urine,Clean Catch 09/14/21 20:56 Blood Culture - Preliminary Blood NEGATIVE TO DATE 09/14/21 20:56 Blood Culture - Preliminary Blood NEGATIVE TO DATE A&P Assessment and plan (1) Skin infection at gastrostomy tube site: Continue skin care. From surgical standpoint of view patient would benefit from cleansing of the skin with alcohol swabs and application of zinc oxide cream as needed followed by DuoDERM to protect the skin from further excoriation. If patient continues to have an issue with the Rogerio button she may be switched to longer 1 or replacement of the G-tube instead. Status: Suspected (2) Ileus: We will start GoLytely gentlely through NG tube today Please call for further concerns or questions Status: Acute Attestations Medical Necessity Statement*: Per admitting service Coding Level of Care Code Acute Mechanical Service Representative for Tobias Ayon Diagnoses Skin infection at gastrostomy tube site K94.22; L08.9 Ileus K56.7
[2021-09-16] MEDS: sodium chloride 0.9% 1,000 ML 50 ML IV (11:31)
--- NOTE | 2021-09-16 15:23 | P.PN_ITS ---
Subjective Subjective: Patient was seen and examined this morning, overall she is doing better, currently in sinus, noted T-max 100. Cardizem drip has been discontinued. Medications: Reviewed: Yes Medication Review Details: Generic Name Dose Route Start Last Admin Trade Name Zoila PRN Reason Stop Dose Admin Vancomycin/PEG/NAD A/Lysine/Water 1,250 mg in 250 m ls @ 250 mls/hr 09/15/21 01:00 09/16/21 12:10 Vancocin IV Infused Q8H ESTHELA Infusion Imipenem/Cilastati n Sodium 500 100 mls @ 200 mls /hr 09/15/21 08:00 09/16/21 12:10 mg/ Sodium Chlor austin IV Infused Q6H ESTHELA Infusion Protocol Sodium Chloride 1,000 mls @ 50 ml s/hr 09/16/21 08:00 09/16/21 11:31 Sodium Chloride 0.9% IV 50 mls/hr .Q20H ESTHELA Administration Pantoprazole Sodiu m 40 mg 09/15/21 09:00 09/16/21 08:50 Pantoprazole 40 Mg Sdv IVP 40 mg BID ESTHELA Administration Vitals/I&O/Wt Last Vital Signs Temp 99.5 F 09/16/21 08:00 Pulse 90 09/16/21 14:00 Resp 26 H 09/16/21 14:00 BP 114/69 09/16/21 14:00 Pulse Ox 95 09/16/21 13:15 09/16/21 09/16/21 09/16/21 06:59 14:59 22:59 Intake Total 1406.667 / 7473.267 350 / 350 Output Total 900 / 1400 600 / 600 Balance 506.667 / 6073.267 -250 / -250 Weight last 48 hrs Weight 81.647 kg Physical Exam HENMT: COMMON NORMALS: normocephalic and atraumatic HEAD & SCALP: normocephalic and atraumatic Eye: GENERAL EYE: appearance normal, both eyes and all related structures Chest: COMMONS NORMALS: normal inspection of the chest and normal palpation of entire chest wall CHEST: Yes Symmetrical chest wall rise Resp: COMMON NORMALS: normal respiratory effort, No retractions, No use of accessory muscles and clear to auscultation bilaterally EFFORT & INSPECTION: Yes symmetric chest movement AUSCULTATION: clear to auscultation bilaterally Cardio: COMMON NORMALS: regular rate, regular rhythm, S1 normal heart sound present, S2 normal heart sound present, No gallops present (Cardio), No murmurs present (Cardio), No rub (Cardio) and Peripheral pulses 2+ throughout RATE: regular rate RHYTHM: regular rhythm HEART SOUNDS: S1 normal heart sound present and S2 normal heart sound present PERIPHERAL PULSES: Peripheral pulses 2+ throughout GI: COMMON NORMALS: Normal to inspection, nondistended, normoactive bowel sounds present, Soft to palpation, non-tender, No hepatosplenomegaly present and no masses AUSCULTATION: Yes normoactive bowel sounds PALPATION: Yes Soft to palpation and Yes No hepatosplenomegaly present RECTAL EXAM: deferred OTHER: PEG tube site is erythematous Extremity: COMMON NORMALS: no clubbing, cyanosis or edema and no pedal edema Urinary Catheter Management: Brown: Cath Placed During This Visit: yes Reason for Continuing Indwelling Catheter: Accurate Measurement of Urinary Output in Critically Ill Patients Urinary Catheter Date of Insertion: 09/14/21 Urinary Catheter Time of Insertion: 20:40 Data : 09/16/21 01:03 09/16/21 01:03 Micro: Microbiology 09/14/21 20:43 Urine Culture - Preliminary Urine,Clean Catch 09/14/21 20:56 Blood Culture - Preliminary Blood NEGATIVE TO DATE 09/14/21 20:56 Blood Culture - Preliminary Blood NEGATIVE TO DATE A&P Assessment and plan (1) Atrial flutter: Status: Acute (2) Skin infection at gastrostomy tube site: Status: Suspected (3) Altered mental status: Status: Acute (4) Ileus: Status: Acute (5) Malfunction of gastrostomy tube: Status: Acute Plan 20 year old female who has a history of partial epilepsy, spastic quadriplegia, saddle embolism status post thrombectomy has been on Eliquis, suffered from hypoxia related to COVID-19 and saddle embolism, required 2 L of oxygen at baseline, cerebral palsy, communicates via gestures and sounds presented today with chief complaint of increased output from PEG tube and worsening of confusion. Assessment: Atrial flutter with RVR: Recent echo revealed EF 55% normal diastolic dysfunction. Troponin trend unremarkable Received adenosine in the ER Currently on Cardizem drip Will initiate Eliquis Continue telemetry monitoring Monitor electrolytes Chronic constipation: Currently on bowel regimen Metabolic encephalopathy with increased output from the PEG tube: Increase PEG tube output likely secondary to constipation. CT abdomen and pelvis with contrast:Moderate bowel thickening of the rectum consistent with moderate proctitis. Dilated loops of small bowel up to 4.6 cm in diameter consistent with ileus versus enteritis versus occult obstruction. No obvious transition point is identified. Follow blood culture Empirically on broad-spectrum antibiotics N.p.o. IV hydration Surgery on board Chronic hypoxia: Hypoxia has not worsened currently still requiring 2 L of oxygen History of pulmonary embolism: On Eliquis at home CODE STATUS: Full code DVT prophylaxis: SCDs GI prophylaxis with Protonix Attestations Medical Necessity Statement*: Patient is to be in hospital for management of above defined problems. Time Spent in Patient Care: Greater than 35 minutes (>than 50% of time spent in counselling and/or direct pt care on unit) . Coding Level of Care Code Acute Cytogenetics Technologist for g Fwd Exam Detailed Diagnoses Atrial flutter I48.92 Skin infection at gastrostomy tube site K94.22; L08.9 Altered mental status R41.82 Ileus K56.7 Malfunction of gastrostomy tube K94.23
--- NOTE | 2021-09-16 18:17 | PC.NURSE ---
Pt has had copious amounts of green, liquid stool this shift. Family is at bedside and is aware that doctors have asked them to bring seizure medication and formula to the facility for patient. The sores in mouth are still present.
[2021-09-16] MEDS: apixaban 5 mg Tablet 2.5 MG PEG-TUBE (20:46)
[2021-09-17] VITALS (24 sets, daily range): BP systolic 86–136; BP diastolic 60–87; PULSE 70–112; RESP 18–24; TEMP 36.5–37.2; O2SAT 93–100
[2021-09-17] MEDS: sodium chloride 0.9% 1,000 ML 50 ML IV (05:45)
[2021-09-17 07:05] LABS: Basophils % 0.1 %; Eosinophils % 0.5 %; Hemoglobin 12.7 g/dL (11.5-15.3); Lymphocytes # 1.6 10^3/uL (0.8-4.8); Lymphocytes % 18.6 %; Mean Corpuscular HGB Conc 33.4 g/dL (30.0-36.0); Mean Corpuscular Volume 83.7 fl (81-99); Mean Platelet Volume 9.4 fL (7.4-10.4); Monocytes # 0.8 10^3/uL (0.2-0.9); Monocytes % 9.5 %; Neutrophils # 6.03 10^3/uL (1.8-7.7); Neutrophils % 71.1 %; Nucleated Red Blood Cells % 0 %; Platelet Count 313 10^3/cmm (130-400); Red Blood Count 4.54 10^6/uL (4.1-5.3); Red Cell Distribution Width 13.8 % (12.1-15.1); White Blood Count 8.5 10^3/uL (4.0-10.0)
[2021-09-17 07:35] LABS: Alanine Aminotransferase 15 U/L (0-33); Albumin Level 2.9 g/dL (3.5-5.2); Alkaline Phosphatase 137 IU/L (35-105); Anion Gap 17.7 (5-19); Aspartate Amino Transferase 16 U/L (0-32); Blood Urea Nitrogen 3 mg/dL (6-20); Calcium 8.2 mg/dL (8.5-10.5); Carbon Dioxide 21 mmol/L (22-29); Chloride 107 mmol/L (98-107); Globulin 3.2 g/dL (1.3-4.6); Glomerular Filtration Rate 154.3 mL/min (90-130); Glucose 83 mg/dL (65-115); Osmolality Calculated 292 mOsm/kg (285-295); Sodium 143 mmol/L (136-145); Total Bilirubin 0.2 mg/dL (0.15-1.2); Total Protein 6.1 g/dL (6.6-8.7)
--- NOTE | 2021-09-17 07:50 | P.PN_ITS ---
Subjective Subjective: Patient was seen and examined this morning, overall clinically she is much improved, heart rate is better controlled, has remained afebrile. Medications: Reviewed: Yes Medication Review Details: Generic Name Dose Route Start Last Admin Trade Name Zoila PRN Reason Stop Dose Admin Vancomycin/PEG/NAD A/Lysine/Water 1,250 mg in 250 m ls @ 250 mls/hr 09/15/21 01:00 09/16/21 12:10 Vancocin IV Infused Q8H ESTHELA Infusion Imipenem/Cilastati n Sodium 500 100 mls @ 200 mls /hr 09/15/21 08:00 09/16/21 12:10 mg/ Sodium Chlor austin IV Infused Q6H ESTHELA Infusion Protocol Sodium Chloride 1,000 mls @ 50 ml s/hr 09/16/21 08:00 09/16/21 11:31 Sodium Chloride 0.9% IV 50 mls/hr .Q20H ESTHELA Administration Pantoprazole Sodiu m 40 mg 09/15/21 09:00 09/16/21 08:50 Pantoprazole 40 Mg Sdv IVP 40 mg BID ESTHELA Administration Vitals/I&O/Wt Last Vital Signs Temp 98.9 F 09/17/21 04:00 Pulse 84 09/17/21 06:00 Resp 23 H 09/17/21 06:00 BP 120/82 09/17/21 06:00 Pulse Ox 100 09/17/21 06:00 09/16/21 09/17/21 09/17/21 22:59 06:59 14:59 Intake Total 1450 / 1800 1011.667 / 2811.667 Output Total 250 / 850 875 / 1725 Balance 1200 / 950 136.667 / 1086.667 Physical Exam HENMT: COMMON NORMALS: normocephalic and atraumatic HEAD & SCALP: normocephalic and atraumatic Eye: GENERAL EYE: appearance normal, both eyes and all related structures Chest: COMMONS NORMALS: normal inspection of the chest and normal palpation of entire chest wall CHEST: Yes Symmetrical chest wall rise Resp: COMMON NORMALS: normal respiratory effort, No retractions, No use of accessory muscles and clear to auscultation bilaterally EFFORT & INSPECTION: Yes symmetric chest movement AUSCULTATION: clear to auscultation bilaterally Cardio: COMMON NORMALS: regular rate, regular rhythm, S1 normal heart sound present, S2 normal heart sound present, No gallops present (Cardio), No murmurs present (Cardio), No rub (Cardio) and Peripheral pulses 2+ throughout RATE: regular rate RHYTHM: regular rhythm HEART SOUNDS: S1 normal heart sound present and S2 normal heart sound present PERIPHERAL PULSES: Peripheral pulses 2+ throughout GI: COMMON NORMALS: Normal to inspection, nondistended, normoactive bowel sounds present, Soft to palpation, non-tender, No hepatosplenomegaly present and no masses AUSCULTATION: Yes normoactive bowel sounds PALPATION: Yes Soft to palpation and Yes No hepatosplenomegaly present RECTAL EXAM: deferred OTHER: PEG tube site is erythematous Extremity: COMMON NORMALS: no clubbing, cyanosis or edema and no pedal edema Urinary Catheter Management: Brown: Cath Placed During This Visit: yes Reason for Continuing Indwelling Catheter: Accurate Measurement of Urinary Output in Critically Ill Patients Urinary Catheter Date of Insertion: 09/14/21 Urinary Catheter Time of Insertion: 20:40 Data : 09/17/21 06:35 09/17/21 06:35 Micro: Microbiology 09/14/21 20:43 Urine Culture - Preliminary Urine,Clean Catch A&P Assessment and plan (1) Atrial flutter: Status: Acute (2) Skin infection at gastrostomy tube site: Status: Suspected (3) Altered mental status: Status: Acute (4) Ileus: Status: Acute (5) Malfunction of gastrostomy tube: Status: Acute (6) Hypokalemia: Status: Acute Plan 20 year old female who has a history of partial epilepsy, spastic quadriplegia, saddle embolism status post thrombectomy has been on Eliquis, suffered from hypoxia related to COVID-19 and saddle embolism, required 2 L of oxygen at baseline, cerebral palsy, communicates via gestures and sounds presented today with chief complaint of increased output from PEG tube and worsening of confusion. Assessment: Atrial flutter with RVR: Recent echo revealed EF 55% normal diastolic dysfunction. Troponin trend unremarkable Received adenosine in the ER Currently on Cardizem drip Will initiate Eliquis Continue telemetry monitoring Monitor electrolytes Chronic constipation: Currently on bowel regimen Metabolic encephalopathy with increased output from the PEG tube: Increase PEG tube output likely secondary to constipation. CT abdomen and pelvis with contrast:Moderate bowel thickening of the rectum consistent with moderate proctitis. Dilated loops of small bowel up to 4.6 cm in diameter consistent with ileus versus enteritis versus occult obstruction. No obvious transition point is identified. Follow blood culture Empirically on broad-spectrum antibiotics N.p.o. IV hydration Surgery on board #Hypokalemia : Monitor and replace potassium #History of seizure disorder: Is on carbamazepine at home, will resume. Chronic hypoxia: Hypoxia has not worsened currently still requiring 2 L of oxygen History of pulmonary embolism: On Eliquis CODE STATUS: Full code DVT prophylaxis: SCDs GI prophylaxis with Protonix Attestations Medical Necessity Statement*: Patient is to be in hospital for management of above defined problems. Time Spent in Patient Care: Greater than 35 minutes (>than 50% of time s pent in counselling and/or direct pt care on unit) . Coding Level of Care Code Acute Wedding Transportation Driver for g Fwd Exam Detailed Diagnoses Atrial flutter I48.92 Skin infection at gastrostomy tube site K94.22; L08.9 Altered mental status R41.82 Ileus K56.7 Malfunction of gastrostomy tube K94.23 Hypokalemia E87.6
[2021-09-17 08:15] LABS: Potassium 2.7 mmol/L (3.5-5.1)
[2021-09-17] MEDS: pantoprazole 40 mg SDV IVP ×2 (09:06→19:51)
[2021-09-17] MEDS: lidocaine 1% 5 ML in potassium chloride premix 100 ML 25 ML IV ×2 (09:14→12:23)
[2021-09-17] MEDS: apixaban 5 mg Tablet 2.5 MG PEG-TUBE ×2 (09:19→20:59)
[2021-09-17 09:49] LABS: Glucose Point of Care 67 mg/dL (70-110)
[2021-09-17] MEDS: nystatin 100,000 unit/mL UDC 5 mL 100000 UNIT PO ×3 (12:25→20:59)
[2021-09-17] MEDS: tizanidine 4 mg Tablet 8 MG PO (14:23)
[2021-09-17] MEDS: baclofen 10 mg Tablet 40 MG PO ×2 (17:07→20:59)
[2021-09-18] VITALS (27 sets, daily range): BP systolic 87–134; BP diastolic 52–89; PULSE 68–118; RESP 12–29; TEMP 36.4–37.3; O2SAT 93–98; BMI 26.1
[2021-09-18 06:10] LABS: Basophils % 0.1 %; Eosinophils # 0.1 10^3/uL (0.0-0.8); Eosinophils % 1.4 %; Hematocrit 39.3 % (37.0-47.0); Lymphocytes # 1.9 10^3/uL (0.8-4.8); Lymphocytes % 26.9 %; Mean Corpuscular HGB Conc 33.1 g/dL (30.0-36.0); Mean Corpuscular Hemoglobin 27.7 pg (28.0-34.0); Mean Corpuscular Volume 83.6 fl (81-99); Mean Platelet Volume 9.5 fL (7.4-10.4); Monocytes # 0.6 10^3/uL (0.2-0.9); Monocytes % 8.8 %; Neutrophils # 4.34 10^3/uL (1.8-7.7); Neutrophils % 62.4 %; Nucleated Red Blood Cells % 0 %; Platelet Count 370 10^3/cmm (130-400); Red Cell Distribution Width 13.8 % (12.1-15.1)
[2021-09-18] MEDS: acetaminophen 325 mg Tablet 650 MG PO ×2 (06:18→12:34)
[2021-09-18] MEDS: pantoprazole 40 mg SDV IVP (08:37)
[2021-09-18] MEDS: nystatin 100,000 unit/mL UDC 5 mL 100000 UNIT PO ×4 (08:37→20:00)
[2021-09-18] MEDS: apixaban 5 mg Tablet 2.5 MG PEG-TUBE ×2 (08:37→20:00)
[2021-09-18] MEDS: baclofen 10 mg Tablet 40 MG PO ×4 (08:53→20:00)
[2021-09-18 10:00] LABS: Alanine Aminotransferase 17 U/L (0-33); Albumin Level 2.8 g/dL (3.5-5.2); Alkaline Phosphatase 93 IU/L (35-105); Anion Gap 16.7 (5-19); Aspartate Amino Transferase 16 U/L (0-32); Calcium 8.7 mg/dL (8.5-10.5); Carbon Dioxide 23 mmol/L (22-29); Chloride 105 mmol/L (98-107); Globulin 2.9 g/dL (1.3-4.6); Glucose 87 mg/dL (65-115); Sodium 142 mmol/L (136-145); Total Bilirubin 0.2 mg/dL (0.15-1.2); Total Protein 5.7 g/dL (6.6-8.7)
[2021-09-18 10:20] LABS: Blood Urea Nitrogen 1 mg/dL (6-20); Glomerular Filtration Rate 988.4 mL/min (90-130); Osmolality Calculated 289 mOsm/kg (285-295); Potassium 2.7 mmol/L (3.5-5.1)
--- NOTE | 2021-09-18 10:43 | P.PN_ITS ---
Subjective Subjective: Patient is tolerating feeds via NG tube Medications: Reviewed: Yes Vitals/I&O/Wt Last Vital Signs Temp 98.5 F 09/18/21 08:47 Pulse 80 09/18/21 10:00 Resp 18 09/18/21 10:00 BP 113/65 09/18/21 10:00 Pulse Ox 98 09/18/21 10:00 09/17/21 09/18/21 09/18/21 22:59 06:59 14:59 Intake Total 999.167 / 1277.917 246 / 1523.917 100 / 100 Output Total 1350 / 1750 1500 / 3250 Balance -350.833 / -472.083 -1254 / -1726.083 100 / 100 Weight last 48 hrs Weight 152 lb 3.2 oz Physical Exam Narrative: Patient is conscious semi-alert Mildly distressed BMI 31 Head and neck examination PERRLA no masses no cervical lymphadenopathy no jaundice Abdomen nontender nondistended soft no organomegaly guarding or rigidity/no signs of peritonitis Rogerio button in place with minimal skin excoriation around Urinary Catheter Management: Brown: Cath Placed During This Visit: yes Reason for Continuing Indwelling Catheter: Accurate Measurement of Urinary Output in Critically Ill Patients Urinary Catheter Date of Insertion: 09/14/21 Urinary Catheter Time of Insertion: 20:40 Data : 09/18/21 05:49 09/18/21 08:55 Micro: Microbiology 09/14/21 20:43 Urine Culture - Final Urine,Clean Catch A&P Assessment and plan (1) Skin infection at gastrostomy tube site: G-tube exchange to 20 Thai 4.5 cm bedside after informed consent from the family Resume tube feeds at 10 mL/h and increase by 10 mL every 4 hours to reach a goal Ladonna G-tube skin care. DC NG tube. Assurance and education All questions have been answered and all concerns have been addressed to patient's satisfaction. Status: Suspected (2) Ileus: Patient can have magnesium citrate have a bowel every other day as needed Please call for further concerns or questions Status: Acute Attestations Medical Necessity Statement*: Per admitting service Procedures Time out/Consent Time Out Performed: Yes Consent for Procedure: Consent obtained from other (indicate) (Mother) Procedure Narrative Preprocedure diagnosis Rogerio button Postprocedure diagnosis the same Procedure done exchange of Rogerio button. Patient was identified in the ICU .placed first in supine position, timeout was done verifying the patient's name, date of , and procedure, all were in agreement. the patient was continuously monitored via school bus monitor. The previous Rogerio button was removed at bedside after deflating the balloon, and got replaced by another Rogerio button where the balloon was pretested and a total of 6 mL of sterile water were placed. The new Rogerio button was 20 Thai , 4.5 cm. And was introduced without difficulty. Gastric contents were revealed from the Rogerio button feeding access, NG was taken out at the same time Patient tolerated the procedure well I was present for the whole entire procedure Nursing staff internist office based only Elias Alvarez anesthesia Estimated blood loss 0 No immediate complication No specimen Coding Level of Care Code Acute Warehouse Inventory Clerk for [facility] Fwd Diagnoses Skin infection at gastrostomy tube site K94.22; L08.9 Ileus K56.7
[2021-09-18] MEDS: lidocaine 1% 5 ML in potassium chloride premix 100 ML 25 ML IV ×2 (12:22→16:03)
--- NOTE | 2021-09-18 12:29 | P.PN_ITS ---
Subjective Subjective: Patient was seen and examined this morning, clinically she is stable and much improved, cultures have remained negative, hemodynamically stable, afebrile, will discontinue the empiric antibiotic coverage. Medications: Reviewed: Yes Medication Review Details: Generic Name Dose Route Start Last Admin Trade Name Freq PRN Reason Stop Dose Admin Acetaminophen 650 mg 09/17/21 19:00 09/18/21 06:18 Acetaminophen 32 5 Mg Tablet PO 650 mg Q6H PRN Administration MILD PAIN Apixaban 2.5 mg 09/16/21 21:00 09/18/21 08:37 Apixaban 5 Mg Ta blet PEG-TUBE 2.5 mg BID@0900,2100 ESTHELA Administration Baclofen 40 mg 09/17/21 17:00 09/18/21 12:22 Baclofen 10 Mg T ablet PO 40 mg QID ESTHELA Administration Imipenem/Cilastati n Sodium 500 100 mls @ 200 mls /hr 09/15/21 08:00 09/18/21 09:07 mg/ Sodium Chlor [place] IV Infused Q6H ESTHELA Infusion Protocol Lidocaine HCl 5 ml / Potassium 105 mls @ 25 mls/ hr 09/18/21 12:00 09/18/21 12:22 Chloride IV 09/18/21 19:59 25 mls/hr Q4H ESTHELA Administration Non-Formulary Medi cation 10 - 15 ml 09/17/21 12:00 09/18/21 04:53 Carbamazepine [T egretol] PO 15 ml TID@0400,1200,210 0 ESTHELA Administration Nystatin 100,000 unit 09/17/21 13:00 09/18/21 12:22 Nystatin 100,000 Unit/Ml Udc 5 Ml PO 100,000 unit QID ESTHELA Administration Pantoprazole Sodiu m 40 mg 09/18/21 09:00 09/18/21 08:37 Pantoprazole 40 Mg Sdv IVP 40 mg DAILY ESTHELA Administration Tizanidine HCl 8 mg 09/17/21 14:03 09/17/21 14:23 Tizanidine 4 Mg Tablet PO 8 mg TID PRN Administration SPASMS Vitals/I&O/Wt Last Vital Signs Temp 98.5 F 09/18/21 08:47 Pulse 80 09/18/21 10:00 Resp 18 09/18/21 10:00 BP 113/65 09/18/21 10:00 Pulse Ox 98 09/18/21 10:00 09/17/21 09/18/21 09/18/21 22:59 06:59 14:59 Intake Total 999.167 / 1277.917 246 / 1523.917 100 / 100 Output Total 1350 / 1750 1500 / 3250 Balance -350.833 / -472.083 -1254 / -1726.083 100 / 100 Weight last 48 hrs Weight 69.037 kg Physical Exam HENMT: COMMON NORMALS: normocephalic and atraumatic HEAD & SCALP: normocephalic and atraumatic Eye: GENERAL EYE: appearance normal, both eyes and all related structures Chest: COMMONS NORMALS: normal inspection of the chest and normal palpation of entire chest wall CHEST: Yes Symmetrical chest wall rise Resp: COMMON NORMALS: normal respiratory effort, No retractions, No use of accessory muscles and clear to auscultation bilaterally EFFORT & INSPECTION: Yes symmetric chest movement AUSCULTATION: clear to auscultation bilaterally Cardio: COMMON NORMALS: regular rate, regular rhythm, S1 normal heart sound present, S2 normal heart sound present, No gallops present (Cardio), No murmurs present (Cardio), No rub (Cardio) and Peripheral pulses 2+ throughout RATE: regular rate RHYTHM: regular rhythm HEART SOUNDS: S1 normal heart sound present and S2 normal heart sound present PERIPHERAL PULSES: Peripheral pulses 2+ throughout GI: COMMON NORMALS: Normal to inspection, nondistended, normoactive bowel sounds present, Soft to palpation, non-tender, No hepatosplenomegaly present and no masses AUSCULTATION: Yes normoactive bowel sounds PALPATION: Yes Soft to palpation and Yes No hepatosplenomegaly present RECTAL EXAM: deferred OTHER: PEG tube site is erythematous Extremity: COMMON NORMALS: no clubbing, cyanosis or edema and no pedal edema Urinary Catheter Management: Brown: Cath Placed During This Visit: yes Reason for Continuing Indwelling Catheter: Accurate Measurement of Urinary Output in Critically Ill Patients Urinary Catheter Date of Insertion: 09/14/21 Urinary Catheter Time of Insertion: 20:40 Data : 09/18/21 05:49 09/18/21 08:55 Micro: Microbiology 09/14/21 20:43 Urine Culture - Final Urine,Clean Catch A&P Assessment and plan (1) Atrial flutter: Status: Acute (2) Skin infection at gastrostomy tube site: Status: Suspected (3) Altered mental status: Status: Acute (4) Ileus: Status: Acute (5) Malfunction of gastrostomy tube: Status: Acute (6) Hypokalemia: Status: Acute Plan 20 year old female who has a history of partial epilepsy, spastic quadriplegia, saddle embolism status post thrombectomy has been on Eliquis, suffered from hypoxia related to COVID-19 and saddle embolism, required 2 L of oxygen at baseline, cerebral palsy, communicates via gestures and sounds presented today with chief complaint of increased output from PEG tube and worsening of c onfusion. Assessment: Atrial flutter with RVR: Recent echo revealed EF 55% normal diastolic dysfunction. Troponin trend unremarkable Received adenosine in the ER Currently on Cardizem drip Will initiate Eliquis Continue telemetry monitoring Monitor electrolytes Chronic constipation: Currently on bowel regimen Metabolic encephalopathy with increased output from the PEG tube: Increase PEG tube output likely secondary to constipation. CT abdomen and pelvis with contrast:Moderate bowel thickening of the rectum consistent with moderate proctitis. Dilated loops of small bowel up to 4.6 cm in diameter consistent with ileus versus enteritis versus occult obstruction. No obvious transition point is identified. Follow blood culture Was Empirically on broad-spectrum antibiotics has been discontinued On NG tube feed IV hydration Surgery on board #Hypokalemia : Monitor and replace potassium #History of seizure disorder: Is on carbamazepine at home, will resume. Chronic hypoxia: Hypoxia has not worsened currently still requiring 2 L of oxygen History of pulmonary embolism: On Eliquis CODE STATUS: Full code DVT prophylaxis: SCDs GI prophylaxis with Protonix Attestations Medical Necessity Statement*: Patient is still in hospital for management of above-defined problems Coding Level of Care Code Acute Gallery Or Museum Technician for [facility] Fwd Exam Detailed Diagnoses Atrial flutter I48.92 Skin infection at gastrostomy tube site K94.22; L08.9 Altered mental status R41.82 Ileus K56.7 Malfunction of gastrostomy tube K94.23 Hypokalemia E87.6
[2021-09-18] MEDS: tizanidine 4 mg Tablet 8 MG PO (15:27)
[2021-09-18] MEDS: metoprolol tartrate 1 mg/1 mL SDV 5 mL 5 MG IVP (21:06)
--- NOTE | 2021-09-18 22:30 | PC.NURSE ---
Physician Communication Tube feed specifications unclear. Dr. Walton contacted for clarification; Orders received to start tube feed at 10 ml/hr and to increase 10 ml/hr Q 4 hours to reach a goal of 40 ml/hr.
--- NOTE | 2021-09-18 23:00 | PC.NURSE ---
Telemetry Patient found to be pulling at telemetry wires continuously. Verbal coaching and education non-effective. Leads moved to patient's back to allow for continuous cardiac monitoring.
[2021-09-19] VITALS (13 sets, daily range): BP systolic 96–138; BP diastolic 56–85; PULSE 73–114; RESP 18–23; TEMP 36.7–36.9; O2SAT 94–98; BMI 26.0
[2021-09-19] MEDS: acetaminophen 325 mg Tablet 650 MG PO (00:14)
[2021-09-19] MEDS: potassium chloride oral liq 20 mEq/15 mL UDC 40 MEQ PO ×2 (06:31→09:17)
[2021-09-19 07:38] LABS: Basophils % 0.1 %; Eosinophils # 0.2 10^3/uL (0.0-0.8); Eosinophils % 2.2 %; Hematocrit 37.7 % (37.0-47.0); Hemoglobin 12.4 g/dL (11.5-15.3); Lymphocytes # 1.9 10^3/uL (0.8-4.8); Lymphocytes % 27.2 %; Mean Corpuscular HGB Conc 32.9 g/dL (30.0-36.0); Mean Corpuscular Hemoglobin 27.5 pg (28.0-34.0); Mean Corpuscular Volume 83.6 fl (81-99); Monocytes # 0.8 10^3/uL (0.2-0.9); Neutrophils % 58.1 %; Nucleated Red Blood Cells % 0 %; Platelet Count 379 10^3/cmm (130-400); Red Blood Count 4.51 10^6/uL (4.1-5.3); Red Cell Distribution Width 13.8 % (12.1-15.1); White Blood Count 6.9 10^3/uL (4.0-10.0)
[2021-09-19 07:56] LABS: Anion Gap 15.2 (5-19); Blood Urea Nitrogen 3 mg/dL (6-20); Carbon Dioxide 25 mmol/L (22-29); Chloride 107 mmol/L (98-107); Glomerular Filtration Rate 444.2 mL/min (90-130); Glucose 90 mg/dL (65-115); Osmolality Calculated 292 mOsm/kg (285-295); Potassium 4.2 mmol/L (3.5-5.1); Sodium 143 mmol/L (136-145)
[2021-09-19] MEDS: baclofen 10 mg Tablet 40 MG PO (09:07)
[2021-09-19] MEDS: pantoprazole 40 mg SDV IVP (09:07)
[2021-09-19] MEDS: apixaban 5 mg Tablet 2.5 MG PEG-TUBE (09:08)
[2021-09-19] MEDS: tizanidine 4 mg Tablet 8 MG PO (09:08)
[2021-09-19] MEDS: nystatin 100,000 unit/mL UDC 5 mL 100000 UNIT PO (09:09)
--- NOTE | 2021-09-19 09:52 | PC.NURSE ---
tolerating tubefeeding well.10cc residual noted.tubefeeding rate increased to 40 cc/hr
--- NOTE | 2021-09-19 10:10 | PC.CHAP ---
Pastoral Care Encounter/Spiritual Assessment Type of Contact [] Declined order department supervisor visit [] Patient/Family/Request visit [] Outpatient visit [] Follow-up visit [] Physician referral [] Code/Alert [x] Routine visit [] Staff referral [] Actively dying [] Patient sleeping [] Family support [] [] Out of room [] Palliative care [] [] Receiving care in room [] Pre-surgical visit [] Trauma [] Long length of stay [x] ICU visit [] Other: Relational/Emotional Strength [] Patient feels connected with others/family/visitors/staff [] Distress [] Loneliness/isolation [] Abandonment Spirituality of Patient [] Person of Valerie [] Attends Nondenominational of their Valerie [] Believes in Prayer [] Reads Bible or Confucianist materials [] There are Spiritual issues to be addressed Supervisor Costuming Interventions [x] Prayer [] Active listening [] Non-anxious presence [] Spiritual/emotional support [] Crisis/trauma care [] Spiritual counseling [] Bereavement support [] Provided bereavement packet [] Provided Bible/devotional materials [] Provided toy/stuffed animal, coloring book to patient or family member [] Provided Communion [] Anointing/[place] [] Salvation [x] Completed spiritual assessment [] Other: Impact on Illness or Injury [] Angry [] Fearful [] Anxious [] Often cries [] Exhaustion [] Unable to work [] Unable to attend confucianism [] Unable to walk/stand [] Unable to read [] Unable to drive [] Unable to eat/drink [] Unable to sleep [] Unable to be with family [] Patient intubated [] Other: Summary Time spent with patient
--- NOTE | 2021-09-19 11:06 | PM.DCS ---
Discharge Providers Date of Admission: 09/14/21 23:46 Date of Discharge: September 19, 2021 Attending Provider at Admission: Benny Samaniego MD Attending Provider at Discharge: Jose L Rodriguez MD Primary Care Provider: KODY Chacon Diagnoses at Discharge Discharge Diagnosis (1) Skin infection at gastrostomy tube site: Status: Suspected (2) Ileus: Status: Acute Reason for Visit Reason for Visit: [facility] Hospital Course Hospital Course 20 year old female who has a history of partial epilepsy, spastic quadriplegia, saddle embolism status post thrombectomy has been on Eliquis, suffered from hypoxia related to COVID-19 and saddle embolism, required 2 L of oxygen at baseline, cerebral palsy, communicates via gestures and sounds presented with chief complaint of increased output from PEG tube and worsening of confusion. SHe was admitted for the management of a flutter with RVR, she was kept on Cardizem drip initially, she was hydrated adequately, likely the flutter was precipitated by severe dehydration, later she converted to normal sinus rhythm, Cardizem drip was discontinued, she was also managed for encephalopathy Likely precipitated by severe dehydration ,atrial flutter, severe constipation,CT abdomen and pelvis with contrast:Moderate bowel thickening of the rectum consistent with moderate proctitis. Dilated loops of small bowel up to 4.6 cm in diameter consistent with ileus versus enteritis versus occult obstruction. No obvious transition point is identified. Cultures were negative, SHe was empirically kept on antibiotics which were later discontinued. Electrolyte abnormalities were corrected. She was continued to be managed for other comorbid conditions. She was also managed for skin infection at gastrostomy tube site:G-tube exchange was done ( 20 Portuguese 4.5 cm ) initially nasogastric tube was placed As there was concern for ileus, NG tube was later removed, at the time of discharge patient was tolerating tube feeds well. She was discharged in stable condition to home. She will continue to follow primary care physician as outpatient. Physical Exam HENMT: COMMON NORMALS: normocephalic and atraumatic HEAD & SCALP: normocephalic and atraumatic Eye: GENERAL EYE: appearance normal, both eyes and all related structures Chest: COMMONS NORMALS: normal inspection of the chest and normal palpation of entire chest wall CHEST: Yes Symmetrical chest wall rise Resp: COMMON NORMALS: normal respiratory effort, No retractions, No use of accessory muscles and clear to auscultation bilaterally EFFORT & INSPECTION: Yes symmetric chest movement AUSCULTATION: clear to auscultation bilaterally Cardio: COMMON NORMALS: regular rate, regular rhythm, S1 normal heart sound present, S2 normal heart sound present, No gallops present (Cardio), No murmurs present (Cardio), No rub (Cardio) and Peripheral pulses 2+ throughout RATE: regular rate RHYTHM: regular rhythm HEART SOUNDS: S1 normal heart sound present and S2 normal heart sound present PERIPHERAL PULSES: Peripheral pulses 2+ throughout GI: COMMON NORMALS: Normal to inspection, nondistended, normoactive bowel sounds present, Soft to palpation, non-tender, No hepatosplenomegaly present and no masses AUSCULTATION: Yes normoactive bowel sounds PALPATION: Yes Soft to palpation and Yes No hepatosplenomegaly present RECTAL EXAM: deferred Extremity: COMMON NORMALS: no clubbing, cyanosis or edema and no pedal edema Urinary Catheter Management: Brown: Cath Placed During This Visit: yes Reason for Continuing Indwelling Catheter: Accurate Measurement of Urinary Output in Critically Ill Patients Urinary Catheter Date of Insertion: 09/14/21 Urinary Catheter Time of Insertion: 20:40 Discharge Data Studies Completed and Pending Completed Studies During Hospitalization Category Date Time Status CT angio chest w abd pel w con Urgent Cat Scan 09/14/21 20:13 Completed XR KUB portable [id number] AM LABS Exams 09/15/21 06:00 Completed XR KUB portable [id number] Stat Exams 09/15/21 21:15 Completed XR chest 1V portable [id number] Routine Exams 09/15/21 06:39 Completed XR chest 1V portable [id number] Stat Exams 09/14/21 20:25 Completed Pending at discharge Category Date Time Status BMP [Basic Metabolic Panel] AM LABS Lab 09/20/21 04:00 Ordered BMP [Basic Metabolic Panel] AM LABS Lab 09/21/21 04:00 Ordered Blood Culture Stat Lab 09/14/21 20:56 Results CBC Auto Diff [Complete Blood Count w/Auto] AM LABS Lab 09/20/21 04:00 Ordered CBC Auto Diff [Complete Blood Count w/Auto] AM LABS Lab 09/21/21 04:00 Ordered Radiology Impressions Chest/Abdomen/Pelvis CT 09/14/21 20:13 IMPRESSION: 1. Elevation of the right hemidiaphragm consistent with eventration. 2. Peripheral atelectasis involving portions of the right upper lobe and superior segment right lower lobe with collapse of the lung against the mediastinum and posterior medial thorax. 3. Right colonic interposition with the right colon between the diaphragm and liver. 4. Mild left pleural fluid collection. 5. No pulmonary embolus or aortic dissection. IMPRESSION: 1. Moderate bowel thickening of the rectum consistent with moderate proctitis. 2. Percutaneous G-tube in place. 3. Prominent air-filled hepatic flexure under the right hemidiaphragm consistent with colonic interposition. 4. Dilated loops of small bowel up to 4.6 cm in diameter consistent with ileus versus enteritis versus occult obstruction. No obvious transition point is identified. Chest X-Ray 09/15/21 06:39 IMPRESSION: Reduction in the redundancy of the nasogastric tube. The tip is presumably within the body or antrum of the stomach. KUB X-Ray 09/15/21 21:15 IMPRESSION: Nasogastric tube is in the stomach. Laboratory Results WBC 6.9 10^3/uL (4.0-10.0) 09/19/21 07:20 RBC 4.51 10^6/uL (4.1-5.3) 09/19/21 07:20 Hgb 12.4 g/dL (11.5-15.3) 09/19/21 07:20 Hct 37.7 % (37.0-47.0) 09/19/21 07:20 MCV 83.6 fl (81-99) 09/19/21 07:20 MCH 27.5 pg (28.0-34.0) L 09/19/21 07:20 MCHC 32.9 g/dL (30.0-36.0) 09/19/21 07:20 RDW 13.8 % (12.1-15.1) 09/19/21 07:20 Plt Count 379 10^3/cmm (130-400) 09/19/21 07:20 MPV 9.0 fL (7.4-10.4) 09/19/21 07:20 Neut % (Auto) 58.1 % 09/19/21 07:20 Lymph % (Auto) 27.2 % 09/19/21 07:20 Sharkey % (Auto) 12.0 % 09/19/21 07:20 Eos % (Auto) 2.2 % 09/19/21 07:20 Baso % (Auto) 0.1 % 09/19/21 07:20 Neut # (Auto) 4.00 10^3/uL (1.8-7.7) 09/19/21 07:20 Lymph # (Auto) 1.9 10^3/uL (0.8-4.8) 09/19/21 07:20 Sharkey # (Auto) 0.8 10^3/uL (0.2-0.9) 09/19/21 07:20 Eos # (Auto) 0.2 10^3/uL (0.0-0.8) 09/19/21 07:20 Baso # (Auto) 0.0 10^3/uL (0.0-0.1) 09/19/21 07:20 Nucleated RBC % (auto) 0 % 09/19/21 07:20 Nucleated RBCs # 0.0 /100WBC 09/19/21 07:20 D-Dimer 8.05 ug/mIFEU (0-0.59) H 09/14/21 20:25 Sodium 143 mmol/L (136-145) 09/19/21 07:20 Potassium 4.2 mmol/L (3.5-5.1) 09/19/21 07:20 Chloride 107 mmol/L (98-107) 09/19/21 07:20 Carbon Dioxide 25 mmol/L (22-29) 09/19/21 07:20 Anion Gap 15.2 (5-19) 09/19/21 07:20 BUN 3 mg/dL (6-20) L 09/19/21 07:20 Creatinine 0.2 mg/dL (0.5-0.9) L 09/19/21 07:20 GFR Calculation 444.2 mL/min (90-130) H 09/19/21 07:20 Glucose 90 mg/dL (65-115) 09/19/21 07:20 POC Glucose 67 mg/dL (70-110) L 09/17/21 08:49 Calculated Osmolality 292 mOsm/kg (285-295) 09/19/21 07:20 Lactate 1.1 mmol/L (0.5-2.2) 09/15/21 02:48 Calcium 9.0 mg/dL (8.5-10.5) 09/19/21 07:20 Phosphorus 3.5 mg/dL (2.5-4.5) 09/15/21 02:48 Magnesium 2.1 mg/dL (1.7-2.3) 09/15/21 02:48 Total Bilirubin 0.2 mg/dL (0.15-1.2) 09/18/21 08:55 AST 16 U/L (0-32) 09/18/21 08:55 ALT 17 U/L (0-33) 09/18/21 08:55 Alkaline Phosphatase 93 IU/L (35-105) 09/18/21 08:55 Troponin T Baseline 10 ng/L (0-10) 09/14/21 20:25 Troponin T 120 Minute 6.64 ng/L (0-10) 09/14/21 22:30 Delta Troponin T Not Reportable 09/14/21 22:30 Troponin T Hi Sens 6Hr 6.00 ng/L (0-10) 09/15/21 02:48 Troponin T Hi Sens 6Hr Delta Not Reportable 09/15/21 02:48 C-Reactive Protein 92.2 mg/L (0.0-4.9) H 09/15/21 02:48 Total Protein 5.7 g/dL (6.6-8.7) L 09/18/21 08:55 Albumin 2.8 g/dL (3.5-5.2) L 09/18/21 08:55 Globulin 2.9 g/dL (1.3-4.6) 09/18/21 08:55 Lipase 8 U/L (13-60) L 09/14/21 20:25 Procalcitonin 0.51 ng/mL (0-0.5) H 09/14/21 22:30 TSH 1.17 uIU/mL (0.27-4.20) 09/14/21 20:25 Free T4 0.69 ng/dL (0.82-1.77) L 09/14/21 20:25 Urine Color Yellow (Yellow) 09/14/21 20:43 Urine Appearance Clear (CLEAR) 09/14/21 20:43 Urine pH 5 (5-7) 09/14/21 20:43 Ur Specific [place] 1.025 (1.005-1.030) 09/14/21 20:43 Urine Protein 3+ (Negative) H 09/14/21 20:43 Urine Glucose (UA) Norm (Normal) 09/14/21 20:43 Urine Ketones Negative (Negative) 09/14/21 20:43 Urine Blood 3+ (Negative) H 09/14/21 20:43 Urine Nitrate Negative (Negative) 09/14/21 20:43 Urine Bilirubin 1+ (Negative) H 09/14/21 20:43 Urine Urobilinogen Norm mg/dL (Negative) 09/14/21 20:43 Ur Leukocyte Esterase Negative (Negative) 09/14/21 20:43 Urine RBC 10-15 /hpf (0-2) H 09/14/21 20:43 Urine WBC 0-4 /hpf (0-5) H 09/14/21 20:43 Ur Squamous Epith Cells 5-10 /hpf (0-5) H 09/14/21 20:43 Amorphous Sediment 1+ /hpf 09/14/21 20:43 Urine Bacteria 1+ /hpf (NONE) H 09/14/21 20:43 Hyaline Casts 10-15 /lpf H 09/14/21 20:43 Vancomycin Trough Cancelled 09/16/21 01:03 Vitals Last Vital Signs Temp 98.1 F 09/19/21 10:59 Pulse 108 H 09/19/21 10:59 Resp 22 H 09/19/21 10:59 BP 125/76 09/19/21 10:59 Pulse Ox 98 09/19/21 10:59 Discharge Plan Discharge Patient Disposition: Home Condition: Stable Prescriptions: Continued (DME) [facility] Shellie-Med Msk Spacer See Rx Instructions .ROUTE .MEDSUPPLY Qty: 1 0RF Rx Instructions: As directed tizanidine 4 mg tablet 8 mg PO TID 30 Days Qty: 180 11RF Flovent HFA 110 mcg/actuation HFA aerosol inhaler 2 puff INHALATION Q12H Qty: 12 5RF hydroxyzine HCl 10 mg/5 mL solution 50 mg PO BEDTIME 30 Days Qty: 750 5RF lactulose 20 gram/30 mL solution 20 g PO BID PRN (Reason: constipation) Qty: 1500 5RF trazodone 50 mg tablet 25 - 50 mg PO BEDTIME Qty: 60 5RF (DME) G-tube See Rx Instructions .Route .MEDSUPPLY Qty: 1 0RF Rx Instructions: need large balloon to help prevent pulling out (DME) Hospital bed with full bed rails See Rx Instructions .Route .MEDSUPPLY Qty: 1 0RF Rx Instructions: Code E0260 use for 99 months Eliquis 5 mg tablet 2.5 mg peg-tube BID@0900,2100 Qty: 30 4RF albuterol sulfate 2.5 mg /3 mL (0.083 %) solution for nebulization 2.5 mg INHALATION Q6H PRN (Reason: shortness of breath or wheezing) Qty: 75 5RF (DME) Bed rail full length See Rx Instructions .Route .MEDSUPPLY Qty: 1 0RF Rx Instructions: As directed (DME) nebulizers Misc See Rx Instructions .ROUTE .MEDSUPPLY Qty: 1 0RF Rx Instructions: As directed (DME) Disposable nebulizer circuit with mask See Rx Instructions .ROUTE .MEDSUPPLY Qty: 1 2RF Rx Instructions: As directed Tegretol 100 mg/5 mL suspension See Rx Instructions .ROUTE .COMPLEX Qty: 450 3RF Dose Instruction: take 15ML BY MOUTH EVERY MORNING, 10ML AT NOON AND 15MLs in THE evening Rx Instructions: take 15ML BY MOUTH EVERY MORNING, 10ML AT NOON AND 15MLs in THE evening cholecalciferol (vitamin D3) 125 mcg (5,000 unit) capsule 125 mcg PO QAM Qty: 30 5RF cetirizine 5 mg/5 mL solution 5 mg PO BEDTIME Qty: 450 1RF albuterol sulfate [Ventolin HFA] 90 mcg/actuation HFA aerosol inhaler 2 puff INHALATION Q4H PRN (Reason: shortness of breath or wheezing) Qty: 6.7 2RF zafirlukast 20 mg tablet 20 mg PO BID 0RF baclofen 10 mg tablet 40 mg PO QID 0RF Depo-Provera 150 mg/mL suspension 150 mg IM Q90D 0RF Discharge Orders: Discharge Order (Routine); Ordered 09/19/21 Ordered By: Jose L Rodriguez Referrals: Aj Fuentes, SENIOR QA AUTOMATION ENGINEER-C [Primary Care Provider] - 1 week (you have an appointment with aj fuentes on 09/26 at 1020.call for questions or concerns:[phone]) Discharge Diet: Resume prior tube feeds Patient Instructions: How to Use and Care for Your PEG Tube (DC), Hypotension (DC), Ileus (DC), PEG Tube Insertion (DC), Opioid Safety, Thrush - Adult, Wound Care (General) Discharge Attestations Time Spent in Discharge Care*: greater than 30 min Status at Discharge: Cognitive status at discharge: severely impaired cognition, Behavioral status at discharge: cooperative, Quality Metrics Clinical Quality Measures [ No reported AMI, CVA or VTE this stay] Coding Level of Care Code Acute Chg FW DC note Exam Detailed Diagnoses Skin infection at gastrostomy tube site K94.22; L08.9 Ileus K56.7
--- NOTE | 2021-09-19 12:53 | PC.NURSE ---
discharge instructions given and explained to pt's father.he verb understanding of instructions.discharged via w/c to exit
== END 2021-09-19 12:56 | disposition home or self-care (01) | DRG 308 ==
LOC: ER 21:00 → ICU 23:13
PROVIDERS: Admitting Provider Internal Medicine; Emergency Provider Emergency Medicine; PCP Nurse Practitioner; Visit Provider Internal Medicine
DX: I48.92 Unspecified atrial flutter (principal); G80.0 Spastic quadriplegic cerebral palsy; G93.41 Metabolic encephalopathy; K56.7 Ileus, unspecified; K94.23 Gastrostomy malfunction; Z86.711 Personal history of pulmonary embolism; Z86.16 Personal history of COVID-19; F79 Unspecified intellectual disabilities; L08.9 Local infection of the skin and subcutaneous tissue, unspecified; G40.909 Epilepsy, unspecified, not intractable, without status epilepticus; E86.0 Dehydration; K59.09 Other constipation; E87.6 Hypokalemia; Z79.891 Long term (current) use of opiate analgesic; Z79.01 Long term (current) use of anticoagulants; Z79.3 Long term (current) use of hormonal contraceptives
CPT/HCPCS: 36415; 36416; 51702; 71045; 71275; 74018; 74177; 80048; 80053; 81001; 82962; 83605; 83690; 83735; 84100; 84145; 84439; 84443; 84484; 85025; 85378; 86140; 87040; 87086; 93005; 96365; 96366; 96367; 96375; 99285; C9113; J0153; J0743; J1160; J3370; J3480; J3490; J7030; J7040; J7799; Q9967; S0030

== ENCOUNTER → 2021-09-30 12:14 | Outpatient (BNVA) | payer MEDICAID, SELFPAY | PROVIDERS: PCP Nurse Practitioner; Visit Provider Nurse Practitioner | DX: J45.909 Unspecified asthma, uncomplicated (principal); R23.8 Other skin changes; E55.9 Vitamin D deficiency, unspecified | CPT/HCPCS: 80048; 85025 ==

== ENCOUNTER → 2021-11-25 12:42 | Outpatient (BNVA) | payer MEDICAID, SELFPAY | PROVIDERS: PCP Nurse Practitioner; Visit Provider Specialist | DX: G40.419 Other generalized epilepsy and epileptic syndromes, intractable, without status epilepticus (principal) | CPT/HCPCS: 99215 ==

== ENCOUNTER 2022-01-17 16:26 | Emergency (ER) | payer MEDICAID, SELFPAY ==
[2022-01-17 16:30] VITALS: BP 105/75; PULSE 86; RESP 18; TEMP 36.7; O2SAT 99; BMI 32.2
--- NOTE | 2022-01-17 16:30 | ECG_ITS ---
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 Measurements Intervals Mark Rate: 78 P: 48 MO: 156 QRS: -16 QRSD: 81 T: 30 QT: 339 QTc: 386 Interpretive Statements SINUS RHYTHM WITH SINUS ARRHYTHMIA LOW QRS VOLTAGE IN PRECORDIAL LEADS [QRS DEFLECTION < 1.0 mV IN CHEST LEADS] POSSIBLE ANTERIOR MYOCARDIAL INFARCTION , PROBABLY OLD [30 ms Q WAVE IN V3/V4, OR R < 0.2 mV IN V4] Compared to ECG 09/16/2021 09:23:43 Sinus tachycardia no longer present Myocardial infarct finding still present Electronically Signed On 01-18-2022 13:18:30 CDT by Mehul Howard M.D. [id number]
--- NOTE | 2022-01-17 16:37 | W.ED.GENADLT ---
HPI - General Adult General: Chief complaint: General Medical Stated complaint: vague complaint Time Seen by Provider: 01/17/22 16:29 Source: patient Mode of arrival: ambulatory Limitations: no limitations History of Present Illness: 21 yo female present to the ER from home. Family is reporting that at times the patient seems to be in pain. They correlate this with low heart rates the reporting that the oxygen sat drops into the and heart rate drops into the 50s at various times. They are monitoring with a finger tip oximeter. She also has a PEG tube which has been functioning normally. She has a history of a flutter. 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 Seasonal allergic rhinitis Skin infection at gastrostomy tube site Spastic quadriplegic cerebral palsy Unspecified intellectual disabilities Urine incontinence Vitamin D deficiency Surgical History History of open reduction and internal fixation (ORIF) procedure Left femur at [facility] 02/28/21 History of tonsillectomy and adenoidectomy 2001 Hx of myringotomy 2002 Status post open reduction and internal fixation (ORIF) of fracture Family History Grandfather Diabetes Paternal grandfather Maternal grandfather Heart disease Maternal grandmother Mother Diabetes Hyperlipidemia Thyroid condition Grandmother Diabetes Paternal grandmother Maternal grandmother Hyperlipidemia Maternal grandmother Thyroid condition Maternal grandmother Paternal grandmother Father Stroke Denies family history of Colon cancer Ovarian cancer Breast cancer Hypertension Uterine cancer Social History Smoking and tobacco status: never smoked Physical Exam Const: COMMON NORMALS: no acute distress GENERAL APPEARANCE: cooperative and comfortable ORIENTATION/CONSCIOUSNESS: Yes awake HENMT: COMMON NORMALS: normocephalic, atraumatic and hearing grossly normal bilaterally HEAD & SCALP: normocephalic and atraumatic Resp: COMMON NORMALS: normal respiratory effort, No retractions, No use of accessory muscles and clear to auscultation bilaterally AUSCULTATION: clear to auscultation bilaterally Cardio: COMMON NORMALS: regular rate, regular rhythm and No murmurs present (Cardio) RATE: regular rate RHYTHM: regular rhythm GI: COMMON NORMALS: Soft to palpation and No hepatosplenomegaly present AUSCULTATION: Yes normoactive bowel sounds PALPATION: Yes Soft to palpation, No Tenderness to palpation present (GI), No Guarding due to palpation present (GI) and Yes No hepatosplenomegaly present Extremity: COMMON NORMALS: normal to inspection, capillary refill normal, no clubbing, cyanosis or edema, no calf tenderness and no pedal edema Skin: COMMON NORMALS: no rashes or lesions noted GENERAL SKIN EXAM: no rashes or lesions noted Course Vital Signs: Vital signs: Vital Signs Temperature 98.1 F 01/17/22 16:30 Pulse Rate 102 H 01/17/22 18:15 Respiratory Rate 22 H 01/17/22 18:15 Blood Pressure 110/76 01/17/22 18:15 Pulse Oximetry 100 01/17/22 18:15 Oxygen Delivery Me thod 01/17/22 17:00 MDM - General Adult Medical Decision Making Patient has history of atrial fibs/flutter. He is on apixaban is currently not on anything for rate control will be monitored here in the emergency room there was no sign of any bradycardia. For now we will make no changes in medication set up for 48-hour Holter monitor and follow-up with her primary care or cardiology to review to see if any rate suppression is warranted. Discussed with the family and concerned about starting anything to control the upper end of the rate if she is having bradycardic episodes we will exacerbate those significantly. Medical Records I reviewed the patient's medical records. Lab Data I reviewed the patient's lab results. : 01/17/22 17:14 01/17/22 17:14 Radiology Impressions Chest X-Ray 01/17/22 16:42 IMPRESSION: No acute cardiopulmonary abnormality. Laboratory Results WBC 9.4 10^3/uL (4.0-10.0) 01/17/22 17:14 RBC 4.79 10^6/uL (4.1-5.3) 01/17/22 17:14 Hgb 13.5 g/dL (11.5-15.3) 01/17/22 17:14 Hct 40.2 % (37.0-47.0) 01/17/22 17:14 MCV 83.9 fl (81-99) 01/17/22 17:14 MCH 28.2 pg (28.0-34.0) 01/17/22 17:14 MCHC 33.6 g/dL (30.0-36.0) 01/17/22 17:14 RDW 12.7 % (12.1-15.1) 01/17/22 17:14 Plt Count 362 10^3/cmm (130-400) 01/17/22 17:14 MPV 9.1 fL (7.4-10.4) 01/17/22 17:14 Neut % (Auto) 69.6 % 01/17/22 17:14 Lymph % (Auto) 20.6 % 01/17/22 17:14 Milam % (Auto) 8.8 % 01/17/22 17:14 Eos % (Auto) 0.7 % 01/17/22 17:14 Baso % (Auto) 0.2 % 01/17/22 17:14 Neut # (Auto) 6.56 10^3/uL (1.8-7.7) 01/17/22 17:14 Lymph # (Auto) 1.9 10^3/uL (0.8-4.8) 01/17/22 17:14 Milam # (Auto) 0.8 10^3/uL (0.2-0.9) 01/17/22 17:14 Eos # (Auto) 0.1 10^3/uL (0.0-0.8) 01/17/22 17:14 Baso # (Auto) 0.0 10^3/uL (0.0-0.1) 01/17/22 17:14 Nucleated RBC % (auto) 0 % 01/17/22 17:14 Nucleated RBCs # 0.0 /100WBC 01/17/22 17:14 Sodium 138 mmol/L (136-145) 01/17/22 17:14 Potassium 3.6 mmol/L (3.5-5.1) 01/17/22 17:14 Chloride 106 mmol/L (98-107) 01/17/22 17:14 Carbon Dioxide 19 mmol/L (22-29) L 01/17/22 17:14 Anion Gap 16.6 (5-19) 01/17/22 17:14 BUN 14 mg/dL (6-20) 01/17/22 17:14 Creatinine 0.3 mg/dL (0.5-0.9) L 01/17/22 17:14 GFR Calculation 275.7 mL/min (90-130) H 01/17/22 17:14 Glucose 88 mg/dL (65-115) 01/17/22 17:14 Calculated Osmolality 286 mOsm/kg (285-295) 01/17/22 17:14 Calcium 9.2 mg/dL (8.5-10.5) 01/17/22 17:14 Total Bilirubin 0.2 mg/dL (0.15-1.2) 01/17/22 17:14 AST 18 U/L (0-32) 01/17/22 17:14 ALT 18 U/L (0-33) 01/17/22 17:14 Alkaline Phosphatase 115 U/L (35-105) H 01/17/22 17:14 Total Protein 6.9 g/dL (6.6-8.7) 01/17/22 17:14 Albumin 3.9 g/dL (3.5-5.2) 01/17/22 17:14 Globulin 3.0 g/dL (1.3-4.6) 01/17/22 17:14 TSH 1.64 uIU/mL (0.27-4.20) 01/17/22 17:14 Urine Color Straw (Yellow) 01/17/22 17:06 Urine Appearance Clear (CLEAR) 01/17/22 17:06 Urine pH 9 (5-7) H 01/17/22 17:06 Ur Specific [place] 1.015 (1.005-1.030) 01/17/22 17:06 Urine Protein Neg (Negative) 01/17/22 17:06 Urine Glucose (UA) Norm (Normal) 01/17/22 17:06 Urine Ketones 1+ (Negative) H 01/17/22 17:06 Urine Blood Neg (Negative) 01/17/22 17:06 Urine Nitrate Negative (Negative) 01/17/22 17:06 Urine Bilirubin Neg (Negative) 01/17/22 17:06 Prot Sulfosalicylic Acd Negative (Negative) 01/17/22 17:06 Urine Urobilinogen Norm mg/dL (Negative) 01/17/22 17:06 Ur Leukocyte Esterase Negative (Negative) 01/17/22 17:06 Discharge Plan Discharge Patient Disposition: Home Clinical Impression: Atrial fib/flutter, transient Condition: Stable Prescriptions: No Action (DME) OptiChamber Shellie-Med Msk Spacer See Rx Instructions .ROUTE .MEDSUPPLY Qty: 1 0RF Rx Instructions: As directed (DME) G-tube See Rx Instructions .Route .MEDSUPPLY Qty: 1 0RF Rx Instructions: need large balloon to help prevent pulling out (DME) Hospital bed with full bed rails See Rx Instructions .Route .MEDSUPPLY Qty: 1 0RF Rx Instructions: Code E0260 use for 99 months Depo-Provera 150 mg/mL suspension 150 mg IM Q90D Qty: 1 3RF calcium carbonate 400 mg/5 mL suspension 400 mg PO DAILY Qty: 118 0RF permethrin [Elimite] 5 % cream 1 applic topical ONCE Qty: 60 0RF Rx Instructions: apply second treatment 14 days after first treatment if live lice remain zinc oxide 20 % ointment 1 applic topical BID PRN (Reason: skin irritation) Qty: 30 0RF albuterol sulfate [Ventolin HFA] 90 mcg/actuation HFA aerosol inhaler 2 puff INHALATION Q4H PRN (Reason: shortness of breath or wheezing) Qty: 6.7 2RF cetirizine 5 mg/5 mL solution 5 mg PO BEDTIME Qty: 450 2RF cholecalciferol (vitamin D3) 125 mcg/mL (5,000 unit/mL) drops 125 mcg PO DAILY Qty: 52 2RF Flovent HFA 110 mcg/actuation HFA aerosol inhaler 2 puff INHALATION Q12H Qty: 12 2RF hydroxyzine HCl 10 mg/5 mL solution 50 mg PO BEDTIME 30 Days Qty: 750 2RF lactulose 20 gram/30 mL solution 20 g PO BID PRN (Reason: constipation) Qty: 1500 2RF trazodone 50 mg tablet 25 - 50 mg PO BEDTIME Qty: 60 2RF zafirlukast 20 mg tablet 20 mg PO BID Qty: 60 2RF albuterol sulfate 2.5 mg /3 mL (0.083 %) solution for nebulization 2.5 mg INHALATION Q6H PRN (Reason: shortness of breath or wheezing) Qty: 75 5RF (DME) Bed rail full length See Rx Instructions .Route .MEDSUPPLY Qty: 1 0RF Rx Instructions: As directed (DME) nebulizers Misc See Rx Instructions .ROUTE .MEDSUPPLY Qty: 1 0RF Rx Instructions: As directed (DME) Disposable nebulizer circuit with mask See Rx Instructions .ROUTE .MEDSUPPLY Qty: 1 2RF Rx Instructions: As directed tizanidine 4 mg tablet See Rx Instructions .ROUTE .COMPLEX Qty: 180 11RF Dose Instruction: TAKE TWO TABLETS BY MOUTH THREE TIMES DAILY FOR 30 DAYS Rx Instructions: TAKE TWO TABLETS BY MOUTH THREE TIMES DAILY FOR 30 DAYS lacosamide [Vimpat] 10 mg/mL solution 50 mg PO BID Qty: 200 5RF lorazepam [Lorazepam Intensol] 2 mg/mL concentrate 2 mg PO DAILY PRN (Reason: anxiety) Qty: 30 5RF Rx Instructions: 2mg as needed for seizure Eliquis 5 mg tablet 2.5 mg peg-tube BID@0900,2100 Qty: 30 1RF Tegretol 100 mg/5 mL suspension See Rx Instructions .ROUTE .COMPLEX Qty: 450 0RF Dose Instruction: take 15ML BY MOUTH EVERY MORNING, 10ML AT NOON AND 15MLs in THE evening Rx Instructions: take 15ML BY MOUTH EVERY MORNING, 10ML AT NOON AND 15MLs in THE evening baclofen 10 mg tablet 40 mg PO QID Discharge Orders: Discharge ED (Routine); Ordered 01/17/22 Ordered By: Isrrael Whitlock Referrals: Roldan Guerrero FNP-C [Primary Care Provider] - Discharge Diet: Usual diet Discharge Activity: Resume usual activity Patient Instructions: Opioid Safety Activity Restrictions/Additional Instructions: Case management make arrangements for you to have a 48-hour Holter monitor follow-up with your primary care doctor after this is completed. Coding Level of Care Code ED Signal Supervisor for Chg Fwd Exam Detailed
--- NOTE | 2022-01-17 16:42 | XRR_ITS ---
PROCEDURE INFORMATION: Exam: XR Chest Exam date and time: 01/17/2022 4:48 PM Age: 21 years old Clinical indication: Tachypnea; Additional info: Dyspnea/cough TECHNIQUE: Imaging protocol: Radiologic exam of the chest. Views: 1 view. COMPARISON: CR XR chest 1V portable [id number] 09/15/2021 6:52 AM FINDINGS: Lungs: The lungs are clear. Pleural spaces: Unremarkable. No pleural effusion. No pneumothorax. Heart/Mediastinum: Unremarkable. No cardiomegaly. Bones/joints: Unremarkable. XR/XR chest 1V portable [id number] IMPRESSION: No acute cardiopulmonary abnormality.
[2022-01-17 17:00] VITALS: BP 105/75; PULSE 104; RESP 23; O2SAT 97
[2022-01-17 17:22] LABS: Add Urine Microscopic? NO; Charge for UA Resulting for Rev
[2022-01-17 17:23] LABS: Basophils % 0.2 %; Eosinophils # 0.1 10^3/uL (0.0-0.8); Eosinophils % 0.7 %; Hematocrit 40.2 % (37.0-47.0); Hemoglobin 13.5 g/dL (11.5-15.3); Lymphocytes # 1.9 10^3/uL (0.8-4.8); Lymphocytes % 20.6 %; Mean Corpuscular HGB Conc 33.6 g/dL (30.0-36.0); Mean Corpuscular Hemoglobin 28.2 pg (28.0-34.0); Mean Corpuscular Volume 83.9 fl (81-99); Mean Platelet Volume 9.1 fL (7.4-10.4); Monocytes # 0.8 10^3/uL (0.2-0.9); Monocytes % 8.8 %; Neutrophils # 6.56 10^3/uL (1.8-7.7); Neutrophils % 69.6 %; Nucleated Red Blood Cells % 0 %; Platelet Count 362 10^3/cmm (130-400); Red Blood Count 4.79 10^6/uL (4.1-5.3); Red Cell Distribution Width 12.7 % (12.1-15.1); White Blood Count 9.4 10^3/uL (4.0-10.0)
[2022-01-17 17:28] LABS: Bilirubin Urine Neg (Negative); Blood Urine Neg (Negative); Glucose Urine UA Norm (Normal); Ketones Urine 1+ (Negative); Leukocyte Esterase Urine Negative (Negative); Nitrate Urine Negative (Negative); Protein Urine Neg (Negative); Specific Gravity, Urine 1.015 (1.005-1.030); Sulfosalicylic Acid Urine Negative (Negative); Urine Appearance Clear (CLEAR); Urine Color Straw (Yellow); Urobilinogen Urine Norm (Negative); pH Urine 9 (5-7)
[2022-01-17 17:51] LABS: Alanine Aminotransferase 18 U/L (0-33); Albumin Level 3.9 g/dL (3.5-5.2); Alkaline Phosphatase 115 U/L (35-105); Anion Gap 16.6 (5-19); Aspartate Amino Transferase 18 U/L (0-32); Blood Urea Nitrogen 14 mg/dL (6-20); Calcium 9.2 mg/dL (8.5-10.5); Carbon Dioxide 19 mmol/L (22-29); Chloride 106 mmol/L (98-107); Glomerular Filtration Rate 275.7 mL/min (90-130); Glucose 88 mg/dL (65-115); Osmolality Calculated 286 mOsm/kg (285-295); Potassium 3.6 mmol/L (3.5-5.1); Sodium 138 mmol/L (136-145); Thyroid Stimulating Hormone 1.64 uIU/mL (0.27-4.20); Total Bilirubin 0.2 mg/dL (0.15-1.2); Total Protein 6.9 g/dL (6.6-8.7)
[2022-01-17 18:15] VITALS: BP 110/76; PULSE 102; RESP 22; O2SAT 100
--- NOTE | 2022-01-20 10:47 | DCPLANNER ---
Addendum entered by Caity Brandt 04/20/22 15:17: Patient had a follow up appointment scheduled with heart care - patient did attend appointment. Addendum entered by Caity Brandt 01/23/22 09:05: Patient has a follow up appointment scheduled for Thursday, February 10, 2022 at 10:45 with heart care for a 48 hour halter monitor. Clinic will call patients mother with appointment. Addendum entered by Caity Brandt 01/21/22 12:16: mobile manager received the following message from [facility] regarding follow up appointment: Attempted to call pt. No vm setup. On Wed 1:41p Jan 20, 2022 Lidia Wellington (Covering For: [facility] Front Office) Wrote To: [facility] Attempted to call patient - no voicemail option available mobile manager called phone number [phone] this number is no longer in service mobile manager called phone number [phone] - no voicemail set up Original Note: mobile manager had message to schedule an outpatient 48 hour halter monitor. mobile manager faxed a signed order to centralized scheduling, who will call patient with appointment information.
== END 2022-01-17 18:21 | disposition home or self-care (01) ==
PROVIDERS: Emergency Provider Family Medicine; PCP Nurse Practitioner
DX: I48.91 Unspecified atrial fibrillation (principal); I48.92 Unspecified atrial flutter; Z79.01 Long term (current) use of anticoagulants; G80.0 Spastic quadriplegic cerebral palsy
CPT/HCPCS: 71045; 80053; 81003; 84443; 85025; 93005; 99285

== ENCOUNTER 2022-02-05 18:28 | Emergency (ER) | payer MEDICAID, SELFPAY ==
[2022-02-05 18:37] VITALS: BP 111/78; PULSE 113; RESP 16; TEMP 36.6; O2SAT 98
--- NOTE | 2022-02-05 18:51 | ED_ITS ---
HPI - General Adult General: Chief complaint: General Medical Stated complaint: New Brusing Time Seen by Provider: 02/05/22 18:47 History of Present Illness: Patient is a 21-year-old female with a history of atrial flutter on Eliquis, chronic G-tube dependence, baseline intellectual d isability, chronic bedbound who presents the emergency room for concerns of possible bruise to the groin area. Patient lives at home with family. Patient wears diapers daily. In addition, patient is wheelchair with her son to see buckle to get around. Earlier today, patient is nursing staff was cleaned the patient when patient was noted to have a hyperpigmented result of bruise with mild swelling in the groin area. Family was alerted and patient was brought to the emergency room for further evaluation. Family does not suspect that the is any trauma. Patient has not had any recent increased urination or frequent diaper change. Patient has not had any fall. Family does not suspect that there is any trauma or injuries involved recently. Patient has not been outside in the sun. Patient has not had any new vaginal discharge. Family otherwise reports the patient is at baseline. 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 Seasonal allergic rhinitis Skin infection at gastrostomy tube site Spastic quadriplegic cerebral palsy Unspecified intellectual disabilities Urine incontinence Vitamin D deficiency Surgical History History of open reduction and internal fixation (ORIF) procedure Left femur at [facility] 02/28/21 History of tonsillectomy and adenoidectomy 2001 Hx of myringotomy 2001 Status post open reduction and internal fixation (ORIF) of fracture Family History Grandfather Diabetes Paternal grandfather Maternal grandfather Heart disease Maternal grandmother Mother Diabetes Hyperlipidemia Thyroid condition Grandmother Diabetes Paternal grandmother Maternal grandmother Hyperlipidemia Maternal grandmother Thyroid condition Maternal grandmother Paternal grandmother Father Stroke Denies family history of Colon cancer Ovarian cancer Breast cancer Hypertension Uterine cancer Social History Smoking and tobacco status: never smoked Second hand smoke exposure: No Smoking risk assessment/counseling performed?: No Alcohol intake: never Desire information about alcohol rehabilitation?: No Counseling given: No Desire information about substance/drug rehabilitation?: No Counseling given: No Adopted: No Caregiver/support person: Yes Lives independently: No Household members: family Housing: House Marital status: Single Number of children: 0 Number of grandchildren: 0 service: No Current occupational status: disabled Current occupational exposures/hazards: No Pets and animals: Yes History of recent travel: No Current gender identity: Female Physical Exam HENMT: COMMON NORMALS: atraumatic HEAD & SCALP: atraumatic MOUTH: moist mucous membranes not abnormal Eye: COMMON NORMALS: EOMs intact bilaterally and conjunctivae normal CONJUNCTIVA: Yes conjunctivae normal Neck/C-Spine: COMMON NORMALS: full ROM and supple Resp: COMMON NORMALS: normal respiratory effort and clear to auscultation bilaterally AUSCULTATION: clear to auscultation bilaterally Cardio: COMMON NORMALS: regular rate RATE: regular rate GI: COMMON NORMALS: Soft to palpation and non-tender PALPATION: Yes Soft to palpation : OTHER: Exam supervised by Olivier: 9cm horizontal poorly defined mildly indurated hyperpigmented area on the anterior groin without any visible bruises, laceration. External genitalia appears to be intact Extremity: COMMON NORMALS: full ROM Course Vital Signs: Vital signs: Vital Signs Temperature 97.8 F 02/05/22 18:37 Pulse Rate 113 H 02/05/22 18:37 Respiratory Rate 16 02/05/22 18:37 Blood Pressure 111/78 02/05/22 18:37 Pulse Oximetry 98 02/05/22 18:37 Oxygen Delivery Me thod 02/05/22 18:37 [facility] - General Adult Medical Decision Making Patient is a 21-year-old female with a history of atrial flutter on Eliquis, chronic G-tube dependence, baseline intellectual disability, chronic bedbound who presents the emergency room for concerns of possible bruise to the groin area. On exam, patient is noted to have a 9 cm heart horizontal poorly defined hyperpigmentated area. Do not suspect there is any acute trauma or injury. Do not suspect any assault with her physical or sexual in nature. It is unclear what this hyperpigmentated lesion is. I suspect that given the fact the patient has a horizontal buckle in her wheelchair this may be from skin breakdown from overuse. Given family close instructions to follow-up in the next 2 to 3 days for reassessment of the lesion. Disposition: Discharge. Patient counseled regarding diagnostic impression, treatment plan. Patient given ED strict return precautions to return for continuation, worsening, or development of new symptoms. Instructed to f/u w/ PCP regarding symptoms today. Patient verbalized understanding. Discharge Plan Discharge Patient Disposition: Home Clinical Impression: Hyperpigmentation Condition: Stable Prescriptions: No Action (DME) OptiChamber Shellie-Med Msk Spacer See Rx Instructions .ROUTE .MEDSUPPLY Qty: 1 0RF Rx Instructions: As directed (DME) G-tube See Rx Instructions .Route .MEDSUPPLY Qty: 1 0RF Rx Instructions: need large balloon to help prevent pulling out (DME) Hospital bed with full bed rails See Rx Instructions .Route .MEDSUPPLY Qty: 1 0RF Rx Instructions: Code E0260 use for 99 months Depo-Provera 150 mg/mL suspension 150 mg IM Q90D Qty: 1 3RF permethrin [Elimite] 5 % cream 1 applic topical ONCE Qty: 60 0RF Rx Instructions: apply second treatment 14 days after first treatment if live lice remain calcium carbonate 400 mg/5 mL suspension 400 mg PO DAILY Qty: 118 2RF Eliquis 5 mg tablet 2.5 mg peg-tube BID@0900,2100 Qty: 30 2RF cetirizine 5 mg/5 mL solution 5 mg PO BEDTIME Qty: 450 2RF cholecalciferol (vitamin D3) 125 mcg/mL (5,000 unit/mL) drops 125 mcg PO DAILY Qty: 52 2RF Flovent HFA 110 mcg/actuation HFA aerosol inhaler 2 puff INHALATION Q12H Qty: 12 2RF hydroxyzine HCl 10 mg/5 mL solution 50 mg PO BEDTIME 30 Days Qty: 750 2RF lactulose 20 gram/30 mL solution 20 g PO BID PRN (Reason: constipation) Qty: 1500 2RF trazodone 50 mg tablet 25 - 50 mg PO BEDTIME Qty: 60 2RF zafirlukast 20 mg tablet 20 mg PO BID Qty: 60 2RF zinc oxide 20 % ointment 1 applic topical BID PRN (Reason: skin irritation) Qty: 30 0RF albuterol sulfate [Ventolin HFA] 90 mcg/actuation HFA aerosol inhaler 2 puff INHALATION Q4H PRN (Reason: shortness of breath or wheezing) Qty: 6.7 2RF albuterol sulfate 2.5 mg /3 mL (0.083 %) solution for nebulization 2.5 mg INHALATION Q6H PRN (Reason: shortness of breath or wheezing) Qty: 75 5RF (DME) Bed rail full length See Rx Instructions .Route .MEDSUPPLY Qty: 1 0RF Rx Instructions: As directed (DME) nebulizers Mis See Rx Instructions .ROUTE .MEDSUPPLY Qty: 1 0RF Rx Instructions: As directed (DME) Disposable nebulizer circuit with mask See Rx Instructions .ROUTE .MEDSUPPLY Qty: 1 2RF Rx Instructions: As directed tizanidine 4 mg tablet See Rx Instructions .ROUTE .COMPLEX Qty: 180 11RF Dose Instruction: TAKE TWO TABLETS BY MOUTH THREE TIMES DAILY FOR 30 DAYS Rx Instructions: TAKE TWO TABLETS BY MOUTH THREE TIMES DAILY FOR 30 DAYS lacosamide [Vimpat] 10 mg/mL solution 50 mg PO BID Qty: 200 5RF lorazepam [Lorazepam Intensol] 2 mg/mL concentrate 2 mg PO DAILY PRN (Reason: anxiety) Qty: 30 5RF Rx Instructions: 2mg as needed for seizure Tegretol 100 mg/5 mL suspension See Rx Instructions .ROUTE .COMPLEX Qty: 450 0RF Dose Instruction: take 15ML BY MOUTH EVERY MORNING, 10ML AT NOON AND 15MLs in THE evening Rx Instructions: take 15ML BY MOUTH EVERY MORNING, 10ML AT NOON AND 15MLs in THE evening baclofen 10 mg tablet 40 mg PO QID Discharge Orders: Discharge ED (Routine); Ordered 09/29/22 Ordered By: Risa Ross Referrals: Roldan Guerrero, [employer] MANAGER-C [Primary Care Provider] - Discharge Diet: Advance as tolerated Discharge Activity: Increase activity as tolerated Activity Restrictions/Additional Instructions: Come back if you daughter have any new or concerning issues. Please follow-up with your daughter's primary care provider next 2 to 3 days to reassess this lesion. Coding Level of Care Code ED Anode Rebuilder for Chg Fwd Exam Detailed
--- NOTE | 2022-02-05 19:15 | PC.NURSE ---
At bedside with MD to assess contusion.
== END 2022-02-05 19:36 | disposition home or self-care (01) ==
PROVIDERS: Emergency Provider Emergency Medicine; PCP Nurse Practitioner
DX: L81.9 Disorder of pigmentation, unspecified (principal); Z79.01 Long term (current) use of anticoagulants; G80.0 Spastic quadriplegic cerebral palsy
CPT/HCPCS: 99282

== ENCOUNTER → 2022-02-10 10:39 | Outpatient (BNVA) | payer MEDICAID, SELFPAY | PROVIDERS: PCP Nurse Practitioner | DX: I48.91 Unspecified atrial fibrillation (principal) | CPT/HCPCS: 93225 ==

== ENCOUNTER 2022-03-03 12:04 | Day surgery (SDC) | payer MEDICAID, SELFPAY ==
[2022-03-02 09:59] VITALS: BMI 28.3
[2022-03-03] VITALS (7 sets, daily range): BP systolic 94–141; BP diastolic 53–80; PULSE 60–79; RESP 13–18; TEMP 36.4–36.9; O2SAT 97–100
--- NOTE | 2022-03-03 12:52 | SUR.PREOP ---
g-tube patent and patient LOC normal for this pt
[2022-03-03] MEDS: sodium chloride 0.9% 1,000 ML 30 ML IV (13:03)
--- NOTE | 2022-03-03 13:10 | W.PM.OPSUD ---
Surgery/Procedure H&P Update DATE OF PROCEDURE: March 03, 2022 DATE H&P PERFORMED: 02/26/22 H&P UPDATE INFORMATION: I have reviewed H&P completed within last 30 days, I have examined patient prior to procedure and No changes to prior documentation PREOP DIAGNOSIS: needs pelvic exam under anesthesia PLANNED PROCEDURE: Operation Date: 03/03/22 13:35 Proposed Procedures p Exam under anesthesia [id number],G80.0,F84.0,Z01.419(Not Applicable) - Mariah Brown MD Related Problem List Diagnoses (1) Screening for cervical cancer:
--- NOTE | 2022-03-03 14:47 | P.DS_ITS ---
Discharge Providers Date of Admission: 03/03/22 Date of Discharge: March 03, 2022 Attending Provider at Admission: Dr. Brown Attending Provider at Discharge: Mariah Brown MD Primary Care Provider: KODY Chacon Diagnoses at Discharge Discharge Diagnosis (1) Screening for cervical cancer: Status: Acute Reason for Visit Reason for Visit: SPASTIC QUADRIPLEGIC CEREBRAL PALSY Hospital Course Hospital Course The patient was admitted for an exam under anesthesia and pap smear. She did well postoperatively and was ready for discharge. Discharge Data Studies Completed and Pending Pending at discharge Category Date Time Status Thinprep Pap Reflex HPV mRNA Routine Lab 03/03/22 14:26 Received Vitals Last Vital Signs Temp 97.8 F 03/03/22 15:32 Pulse 77 03/03/22 15:32 Resp 18 03/03/22 15:32 BP 113/74 03/03/22 15:32 Pulse Ox 100 03/03/22 15:32 O2 Del Method 03/03/22 15:32 O2 Flow Rate 6 03/03/22 14:40 Discharge Plan Discharge Patient Disposition: Home Condition: Good Prescriptions: Continued (DME) [facility] Spacer See Rx Instructions .ROUTE .MEDSUPPLY Qty: 1 0RF Rx Instructions: As directed (DME) G-tube See Rx Instructions .Route .MEDSUPPLY Qty: 1 0RF Rx Instructions: need large balloon to help prevent pulling out (DME) Hospital bed with full bed rails See Rx Instructions .Route .MEDSUPPLY Qty: 1 0RF Rx Instructions: Code E0260 use for 99 months Depo-Provera 150 mg/mL suspension 150 mg IM Q90D Qty: 1 3RF Eliquis 5 mg tablet 2.5 mg peg-tube BID@0900,2100 Qty: 30 2RF cetirizine 5 mg/5 mL solution 5 mg PO BEDTIME Qty: 450 2RF cholecalciferol (vitamin D3) 125 mcg/mL (5,000 unit/mL) drops 125 mcg PO DAILY Qty: 52 2RF Flovent HFA 110 mcg/actuation HFA aerosol inhaler 2 puff INHALATION Q12H Qty: 12 2RF hydroxyzine HCl 10 mg/5 mL solution 50 mg PO BEDTIME 30 Days Qty: 750 2RF lactulose 20 gram/30 mL solution 20 g PO BID PRN (Reason: constipation) Qty: 1500 2RF trazodone 50 mg tablet 25 - 50 mg PO BEDTIME Qty: 60 2RF zafirlukast 20 mg tablet 20 mg PO BID Qty: 60 2RF albuterol sulfate [Ventolin HFA] 90 mcg/actuation HFA aerosol inhaler 2 puff INHALATION Q4H PRN (Reason: shortness of breath or wheezing) Qty: 6.7 2RF albuterol sulfate 2.5 mg /3 mL (0.083 %) solution for nebulization 2.5 mg INHALATION Q6H PRN (Reason: shortness of breath or wheezing) Qty: 75 5RF (DME) Bed rail full length See Rx Instructions .Route .MEDSUPPLY Qty: 1 0RF Rx Instructions: As directed (DME) nebulizers Misc See Rx Instructions .ROUTE .MEDSUPPLY Qty: 1 0RF Rx Instructions: As directed (DME) Disposable nebulizer circuit with mask See Rx Instructions .ROUTE .MEDSUPPLY Qty: 1 2RF Rx Instructions: As directed tizanidine 4 mg tablet See Rx Instructions .ROUTE .COMPLEX Qty: 180 11RF Dose Instruction: TAKE TWO TABLETS BY MOUTH THREE TIMES DAILY FOR 30 DAYS Rx Instructions: TAKE TWO TABLETS BY MOUTH THREE TIMES DAILY FOR 30 DAYS lacosamide [Vimpat] 10 mg/mL solution 50 mg PO BID Qty: 200 5RF lorazepam [Lorazepam Intensol] 2 mg/mL concentrate 2 mg PO DAILY PRN (Reason: anxiety) Qty: 30 5RF Rx Instructions: 2mg as needed for seizure calcium carbonate 400 mg/5 mL suspension 400 mg PO DAILY Qty: 118 2RF Tegretol 100 mg/5 mL suspension See Rx Instructions .ROUTE .COMPLEX Qty: 450 3RF Dose Instruction: take 15ML BY MOUTH EVERY MORNING, 10ML AT NOON AND 15MLs in THE evening Rx Instructions: take 15ML BY MOUTH EVERY MORNING, 10ML AT NOON AND 15MLs in THE evening baclofen 10 mg tablet 40 mg PO QID Discharge Orders: Discharge Order (Routine); Ordered 03/03/22 Ordered By: Mariah Brown Referrals: Mariah Brown MD [Physician] - (FOLLOW UP WITH DOCTOR DESTINY DIRECTED. ) Discharge Attestations Time Spent in Discharge Care*: less than 30 min Status at Discharge: Cognitive status at discharge: severely impaired cognition , Behavioral status at discharge: cooperative , Quality Metrics Clinical Quality Measures [ No reported AMI, CVA or VTE this stay] Coding Level of Care Code Acute Chg FW DC note Diagnoses Screening for cervical cancer Z12.4
--- NOTE | 2022-03-03 15:37 | SUR.PHASEII ---
G TUBE PATENT. PATIENT RETURN TO BASE LINE.
--- NOTE | 2022-03-03 17:11 | P.ANESASSM_ITS ---
Pre-Anesthetic Assessment Height/Weight: Height 1.52 m Weight 65.771 kg Temp Pulse Resp BP Pulse Ox O2 Del Method O2 Flow Rate 97.8 F 77 18 113/74 100 6 03/03/22 15:32 03/03/22 15:32 03/03/22 15:32 03/03/22 15:32 03/03/22 15:32 03/03/22 15:32 03/03/22 14:40 Preop Diagnosis: needs pelvic exam under anesthesia Operation Date: 03/03/22 13:35 Proposed Procedures p Exam under anesthesia 69253,G80.0,F84.0,Z01.419(Not Applicable) - Mariah Brown MD Familial anesthetic complications: none Was Beta Rosario taken within 24 hours: N/A Was Clonidine taken within 24 hours: N/A Last intake: Intake Last Liquid Date 03/03/22 Last Liquid Time 04:00 Social No alcohol and No tobacco Exam clear to auscultation bilaterally and regular rate & rhythm Airway Submandibular: within normal limits Cervical ROM: within normal limits Mallampati: Class III Dentition: chipped Pulmonary Asthma CV/HEM Atrial Fibrillation (a.flutter) PE Neuropsych Seizure CP, spastic quad Anesthetic Plan ASA status: 3 Anesthesia: General Medications/Allergies Home Medications Medication Instructions Recorded Confirmed Last Taken Type inhalat.spacing dev,med. mask #1 ea 05/24/19 02/27/22 Unknown [facility] Hospital bed with full bed rails #1 ea 08/01/20 02/27/22 Unknown Rx albuterol sulfate 2.5 mg/3 mL 2.5 mg (3 mL) inhalation Q6H PRN 10/04/20 03/03/22 Unknown Rx (0.083 %) solution for nebulization shortness of breath or wheezing #75 mL G-tube #1 ea 12/14/20 02/27/22 Unknown Rx Bed rail full length #1 ea 03/07/21 02/27/22 Unknown Rx Disposable nebulizer circuit with #1 ea 06/11/21 02/27/22 Unknown Rx mask nebulizers #1 ea 06/11/21 02/27/22 Unknown Rx baclofen 10 mg tablet 40 mg PO QID 09/15/21 03/03/22 03/03/22 History albuterol sulfate 90 mcg/actuation 2 puff inhalation Q4H PRN 11/12/21 03/02/22 03/02/22 Rx aerosol inhaler (Ventolin HFA) shortness of breath or wheezing #6.7 grams tizanidine 4 mg tablet See Rx Instructions .Route 11/25/21 03/02/22 03/02/22 04:00 Rx .COMPLEX #180 tabs lacosamide 10 mg/mL oral solution 50 mg (5 mL) PO BID #200 mL 12/01/21 03/03/22 03/03/22 Rx (Vimpat) lorazepam 2 mg/mL oral concentrate 2 mg PO DAILY PRN anxiety #30 mL 12/01/21 03/02/22 02/02/22 Rx (Lorazepam Intensol) medroxyprogesterone 150 mg/mL 150 mg IM Q90D #1 mL 12/17/21 03/02/22 01/05/22 Rx intramuscular suspension (Depo-Provera) apixaban 5 mg tablet (Eliquis) 2.5 mg peg-tube BID@0900,2100 #30 01/21/22 03/03/22 03/03/22 Rx tabs cetirizine 5 mg/5 mL oral solution 5 mg (5 mL) PO BEDTIME #450 mL 01/21/22 03/03/22 03/02/22 Rx cholecalciferol (vitamin D3) 125 125 mcg PO DAILY #52 mL 01/21/22 03/03/22 03/03/22 Rx mcg/mL (5,000 unit/mL) oral drops fluticasone propionate 110 2 puff inhalation Q12H #12 grams 01/21/22 03/03/22 03/03/22 Rx mcg/actuation HFA aerosol inhaler (Flovent HFA) hydroxyzine HCl 10 mg/5 mL oral 50 mg (25 mL) PO BEDTIME 30 days 01/21/22 03/03/22 03/02/22 Rx solution #750 mL lactulose 20 gram/30 mL oral 20 g (30 mL) PO BID PRN 01/21/22 03/02/22 03/02/22 04:00 Rx solution constipation #1,500 mL trazodone 50 mg tablet 25 - 50 mg PO BEDTIME #60 tabs 01/21/22 03/03/2222 Rx zafirlukast 20 mg tablet 20 mg PO BID #60 tabs 01/21/22 03/03/22 03/03/22 Rx calcium carbonate 400 mg/5 mL oral 400 mg (5 mL) PO DAILY #118 mL 02/25/22 03/03/22 03/03/22 Rx suspension Tegretol 100 mg/5 mL oral See Rx Instructions .Route 02/27/22 03/02/22 03/02/22 04:00 Rx suspension (carbamazepine) .COMPLEX #450 mL Allergies Allergy/AdvReac Type Severity Reaction Status Date / Time azithromycin [From Zithromax] Allergy Unknown Verified 03/03/22 12:37 cephalexin [From Keflex] Allergy Unknown Verified 03/03/22 12:37 ibuprofen Allergy ADR-Gastrointestinal Verified 03/03/22 12:37 Upset lactose Allergy Unknown Verified 03/03/22 12:37 levofloxacin [From Levaquin] Allergy ALGY-Rash Verified 03/03/22 12:37 orange juice Allergy ALGY-Rash Verified 03/03/22 12:37 Penicillins Allergy Unknown Verified 03/03/22 12:37 pineapple Allergy Unknown Verified 03/03/22 12:37 Sulfa (Sulfonamide Allergy ALGY-Rash Verified 03/03/22 12:37 Antibiotics) [facility] Anesthesia Medical History Altered mental status Asthma due to environmental allergies Atrial flutter Constipation COVID-19 virus infection (~05/2021) G tube feedings History of gastrostomy tube placement (~12/1998) Hx pulmonary embolism Hypokalemia Ileus Insomnia Malfunction of gastrostomy tube Overweight (BMI 25.0-29.9) 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 Seasonal allergic rhinitis Skin infection at gastrostomy tube site Spastic quadriplegic cerebral palsy Unspecified intellectual disabilities Urine incontinence Vitamin D deficiency Surgical History History of open reduction and internal fixation (ORIF) procedure Left femur at [facility] 02/28/21 History of tonsillectomy and adenoidectomy 2001 Hx of myringotomy 2001 Status post open reduction and internal fixation (ORIF) of fracture Family History Grandfather Diabetes Paternal grandfather Maternal grandfather Heart disease Maternal grandmother Mother Diabetes Hyperlipidemia Thyroid condition Grandmother Diabetes Paternal grandmother Maternal grandmother Hyperlipidemia Maternal grandmother Thyroid condition Maternal grandmother Paternal grandmother Father Stroke Denies family history of Colon cancer Ovarian cancer Breast cancer Hypertension Uterine cancer Social History Smoking and tobacco status: never smoked Second hand smoke exposure: No Smoking risk assessment/counseling performed?: No Alcohol intake: never Desire information about alcohol rehabilitation?: No Counseling given: No Desire information about substance/drug rehabilitation?: No Counseling given: No Adopted: No Caregiver/support person: Yes Lives independently: No Household members: family Housing: House Marital status: Single Number of children: 0 Number of grandchildren: 0 service: No Current occupational status: disabled Current occupational exposures/hazards: No Pets and animals: Yes History of recent travel: No Current gender identity: Female Female Reproductive History Date of last menstrual period: 02/26/20 Data Anesthesia Cardiac Studies: Echocardiogram 06/04/21 Holter Monitor 02/10/22
--- NOTE | 2022-03-03 17:13 | ANE.PACU2 ---
Inpatient post-anesthesia follow up: Airway intact: Yes Vital signs: Temperature 97.8 F Pulse Rate 77 Respiratory Rate 18 Blood Pressure 113/74 Pulse Oximetry 100 Oxygen Delivery Me thod Room Air Oxygen Flow Rate 6 Fraction of Inspir ed Oxygen Hydration adequate: Yes Nausea and vomiting: No Pain level: 1 Mental status: Baseline
--- NOTE | 2022-03-04 14:42 | PM.OP ---
Operative Report Date of procedure: March 03, 2022 Pre-op diagnosis: Preop Diagnosis needs pelvic exam under anesthesia Post-op diagnosis: same Post-op findings: normal cervix. normal bimanual exam Procedure done: exam under anesthesia with pap smear Specimens removed/disposition: pap smear to lab Surgeon: Mariah Brown Anesthesia: MAC Estimated blood loss (mL): 2 IV fluids (mL): 400 Complications: none Findings: normal cervix and bimanual exam Condition: stable Disposition: PACU Procedure: The patient was taken to the operating room where monitored anesthesia was administered and found to be adequate. A bivalve speculum was placed into the vagina and a Pap smear obtained. Bimanual exam was performed. The patient was cleaned up and awakened and taken to recovery in stable condition.
== END 2022-03-03 15:45 | disposition home or self-care (01) ==
PROVIDERS: PCP Nurse Practitioner; Visit Provider Obstetrics & Gynecology
PROC: (CPT 57410; principal; 2022-03-03 13:25)
DX: Z12.4 Encounter for screening for malignant neoplasm of cervix (principal); J45.909 Unspecified asthma, uncomplicated; I48.91 Unspecified atrial fibrillation; Z86.16 Personal history of COVID-19; Z86.711 Personal history of pulmonary embolism
CPT/HCPCS: 57410; 88175; J1100; J2405; J2704; J3010; J7030

== ENCOUNTER → 2022-03-12 07:55 | Outpatient (BNVA) | payer MEDICAID, SELFPAY | PROVIDERS: PCP Nurse Practitioner; Visit Provider Podiatrist Foot & Ankle Surgery | DX: L60.3 Nail dystrophy (principal) | CPT/HCPCS: 11750 ==

== ENCOUNTER → 2022-04-14 09:41 | Outpatient (BNVA) | payer MEDICAID, SELFPAY | PROVIDERS: PCP Nurse Practitioner; Visit Provider Internal Medicine Cardiovascular Disease | DX: R00.0 Tachycardia, unspecified (principal); R06.02 Shortness of breath; Z86.711 Personal history of pulmonary embolism; E66.3 Overweight; Z68.25 Body mass index [BMI] 25.0-25.9, adult; L60.3 Nail dystrophy; G80.0 Spastic quadriplegic cerebral palsy; Z93.1 Gastrostomy status; I51.7 Cardiomegaly | CPT/HCPCS: 99204 ==

== ENCOUNTER → 2022-04-28 15:02 | Outpatient (BNVA) | payer MEDICAID, SELFPAY | PROVIDERS: PCP Nurse Practitioner; Visit Provider Nurse Practitioner | DX: J45.909 Unspecified asthma, uncomplicated (principal); E66.3 Overweight | CPT/HCPCS: 80053; 84439; 84443; 84481 ==

== ENCOUNTER → 2022-10-14 10:15 | Outpatient (BNVA) | payer MEDICAID, SELFPAY | PROVIDERS: PCP Nurse Practitioner; Visit Provider Nurse Practitioner | DX: J45.909 Unspecified asthma, uncomplicated (principal); U07.1 COVID-19; I26.99 Other pulmonary embolism without acute cor pulmonale; Z71.89 Other specified counseling; J30.1 Allergic rhinitis due to pollen; E55.9 Vitamin D deficiency, unspecified; G47.09 Other insomnia; R23.8 Other skin changes | CPT/HCPCS: 80053; 82306; 85025 ==

== ENCOUNTER → 2022-11-24 10:25 | Outpatient (BNVA) | payer MEDICAID, SELFPAY | PROVIDERS: PCP Nurse Practitioner; Visit Provider Specialist | DX: G40.109 Localization-related (focal) (partial) symptomatic epilepsy and epileptic syndromes with simple partial seizures, not intractable, without status epilepticus (principal); G40.409 Other generalized epilepsy and epileptic syndromes, not intractable, without status epilepticus | CPT/HCPCS: 99213 ==